=== PATIENT | female | born 1930 | race Caucasian/White ===

== ENCOUNTER 2017-10-26 10:36 | Emergency (ER) | payer MEDICARE ==
--- NOTE | 2017-10-26 11:30 | ULT ---
RIGHT LOWER EXTREMITY VENOUS DOPPLER: Date: 10/26/17 HISTORY: Lower extremity edema, pain. COMPARISON: None. TECHNIQUE: Real-time Mclaughlin scale and color Doppler with spectral analysis of the right lower extremity venous sy stem was performed. The common femoral and femoral veins were interrogated. The popliteal and electronic development technician ior tibial veins were unable to be visualized. FINDINGS: There is occlusive thrombus in the right greater saphenous and partially occlusive thrombus in the ri ght femoral vein. Popliteal and posterior tibial veins were unable to be visualized due to extensive swelling. IMPRESSION: Occlusive thrombus right greater saphenous vein and partially occlusive thrombus right common femoral vein. Alicia, in the ER, notified of findings at 1118 hours. CODE CR. POS: ALFREDO
[2017-10-26 11:54] LABS: #Basophils 0.1 thou/uL (0.0-0.2); #Eosinphils 0.2 thou/uL (0.0-0.7); #Lymphocytes 2.4 thou/uL (1.20-3.40); #Monocytes 0.8 thou/uL (0.11-0.59); #Neutrophils 5.7 thou/uL (1.40-6.50); %Basophils 0.8 % (0.0-1.0); %Eosinophils 2.5 % (0.0-10.0); %Lymphocytes 25.9 % (21.0-51.0); %Monocytes 8.5 % (0.0-10.0); %Neutrophils 62.3 % (42.0-75.0); Hemoglobin 12.4 g/dL (12.0-16.0); Mean Corpuscular HGB CONC 32.8 g/dL (32.0-36.0); Mean Corpuscular Hemoglobin 28.4 pg (27.0-31.0); Mean Corpuscular Volume 86.7 fL (78.0-98.0); Mean Platelet Volume 7.9 fL (7.4-10.4); Platelet Count 248 thou/uL (130-400); RBC Distribution Width 13.7 % (11.5-14.5); Red Blood Cell (RBC) Count 4.37 mill/uL (4.20-5.40); White Blood Cell (WBC) Count 9.2 thou/uL (4.8-10.8)
[2017-10-26 12:02] LABS: INR-International Normal Ratio 1.2; PTT 28.4 SEC (22.9-36.1)
[2017-10-26] MEDS ORDERED: Enoxaparin Sodium 100 MG/ML SYRINGE ONE (12:06)
[2017-10-26 12:17] LABS: ALT (SGPT) 10 U/L (8-55); AST (SGOT) 16 U/L (5-34); Albumin 3.6 g/dL (3.4-4.8); Alkaline Phosphatase 115 U/L (40-150); Anion Gap 12 mmol/L (10-20); BUN (Urea Nitrogen) 11 mg/dL (9.8-20.1); Bilirubin, Total 0.5 mg/dL (0.2-1.2); Calc. Creatinine Clearance 0 mL/min (70-130); Calcium 9.5 mg/dL (7.8-10.44); Carbon Dioxide 24 mmol/L (23-31); Chloride 107 mmol/L (98-107); Estimated GFR-MDRD 50; Globulin 3.8 g/dL (2.4-3.5); Glucose 252 mg/dL (83-110); Potassium 4.8 mmol/L (3.5-5.1); Protein, Total 7.4 g/dL (6.0-8.3); Sodium 138 mmol/L (136-145)
[2017-10-26 13:25] LABS: PTT 26.5 SEC (22.9-36.1)
[2017-10-26 13:27] LABS: INR-International Normal Ratio 1.1; Prothrombin Time 14.6 SEC (12.0-14.7)
--- NOTE | 2017-10-26 13:34 | CT ---
CT ANGIOGRAM OF THE CHEST: Date: 10/26/17 HISTORY: Right leg pain. Hip pain. Swelling, starting 4-5 days ago. Chest pain. COMPARISON: 03/27/09. TECHNIQUE: CT angiogram of the chest is performed in the axial plane. Three-dimensional reformatted images are s ubmitted for interpretation. FINDINGS: Enlarged right paratracheal lymph node measuring 1.6 x 1.9 cm. Enlarged subcarinal lymph node measuri ng 1.7 x 2.2 cm. Enlarged right hilar lymph node measuring 1.7 x 2.0 cm. Heart size is within normal limits. No significant pericardial fluid. There are coronary calcifications. Limited evaluation of t he aorta due to lack of contrast opacification. Reflux of contrast into the inferior vena cava due to right heart failure. There are no lytic or blastic lesions in the osseous structures. Patchy ground-glass opacities with additional linear opacities in the lung parenchyma. Correlate for atelectasis, scar, or edema. No consolidation with air bronchograms. No significant pleural fluid. No pneumothorax. Adequate contrast opacification of the pulmonary arterial system to the level of the segmental arteri es. No filling defect to imply thromboembolism. IMPRESSION: 1. No evidence of pulmonary arterial embolism to the level of the segmental arteries. 2. Mediastinal and hilar lymphadenopathy. Correlate for a primary metastatic malignant process. Reac tive lymphadenopathy is a consideration, though less favored. POS: ALFREDO
[2017-10-26 13:35] LABS: Factor VIII Test 438.7 % ACTIVE (56-157); Protein C Activity 114 % (78-152)
[2017-10-26 16:05] LABS: Lactic Acid 2.2 mmol/L (0.5-2.2)
[2017-10-27 12:41] LABS: HEX PHOS LA Tube 1 43.3 SEC; HEX PHOS LA Tube 2 40.5 SEC; Hexagonal Phospholipid Neut 2.7 SEC (0-8.0)
[2017-10-28 20:02] LABS: Cardiolipin IgA Ab 1.8 APL-U/mL (<14 Negative); Cardiolipin IgG Ab 2.5 GPL-U/mL (<10 Negative); Cardiolipin IgM Ab 4.2 MPL-U/mL (<10 Negative); EliA APS New Method **** NEW METHOD ****
== END 2017-10-26 16:17 | disposition home or self-care (01) ==
LOC: ERS 10:36
DX: I82.401 Acute embolism and thrombosis of unspecified deep veins of right lower extremity (principal); Z86.73 Personal history of transient ischemic attack (TIA), and cerebral infarction without residual deficits; I25.10 Atherosclerotic heart disease of native coronary artery without angina pectoris; E11.9 Type 2 diabetes mellitus without complications; E03.9 Hypothyroidism, unspecified; I25.2 Old myocardial infarction; E78.5 Hyperlipidemia, unspecified; Z79.899 Other long term (current) drug therapy
CPT/HCPCS: 36415; 71275; 80053; 81240; 81241; 83090; 83605; 85025; 85240; 85300; 85303; 85305; 85307; 85379; 85598; 85610; 85730; 86147; 86850; 86900; 86901; 96372; J1650

== ENCOUNTER 2018-08-04 20:03 | Inpatient (IN) | payer MEDICARE ==
[2018-08-04 20:45] LABS: Hemoglobin 13.6 g/dL (12.0-16.0); Mean Corpuscular HGB CONC 31.7 g/dL (32.0-36.0); Mean Corpuscular Hemoglobin 27.8 pg (27.0-31.0); Mean Corpuscular Volume 87.7 fL (78.0-98.0); Mean Platelet Volume 9.3 fL (7.4-10.4); Platelet Count 267 thou/uL (130-400); RBC Distribution Width 15.8 % (11.5-14.5); Red Blood Cell (RBC) Count 4.88 mill/uL (4.20-5.40); White Blood Cell (WBC) Count 16.1 thou/uL (4.8-10.8)
--- NOTE | 2018-08-04 20:50 | RAD ---
CHEST ONE VIEW: 08/04/18 INDICATION: Shortness of breath. COMPARISON: Prior dated 08/07/15. FINDINGS: Low lung volumes accentuate the cardiac silhouette with pulmonary vasculature. There is suspicion for subsegmental atelectasis involving both lower lobes. No definite confluent air space opacity or pleu ral effusion is evident. Chronic osseous changes are similar appearing. IMPRESSION: 1. Low lung volumes and suspected bibasilar atelectasis. 2. Other chronic findings as above. POS: BH
[2018-08-04] MEDS ORDERED: Diltiazem 125 MG/25 ML ONE (20:52)
[2018-08-04 21:00] LABS: Band 4 % (5-11); Lymphocytes 6 % (21-51); MDiff Complete? YES; Monocytes 3 % (0-10); Neutrophil 87 % (42-75)
[2018-08-04 21:07] LABS: ALT (SGPT) 12 U/L (8-55); AST (SGOT) 22 U/L (5-34); Albumin 3.2 g/dL (3.4-4.8); Alkaline Phosphatase 126 U/L (40-150); Anion Gap 17 mmol/L (10-20); BUN (Urea Nitrogen) 11 mg/dL (9.8-20.1); Calc. Creatinine Clearance 0 mL/min (70-130); Calcium 9.2 mg/dL (7.8-10.44); Carbon Dioxide 18 mmol/L (23-31); Chloride 103 mmol/L (98-107); Estimated GFR-MDRD 42; Globulin 4.2 g/dL (2.4-3.5); Glucose 289 mg/dL (83-110); Potassium 4.5 mmol/L (3.5-5.1); Protein, Total 7.4 g/dL (6.0-8.3); Sodium 133 mmol/L (136-145)
[2018-08-04 21:22] LABS: INR-International Normal Ratio 2.1; PTT 37.2 SEC (22.9-36.1); Prothrombin Time 23.2 SEC (12.0-14.7)
[2018-08-04 22:57] LABS: Bilirubin Negative (Negative); Blood, Urine Moderate (Negative); Clarity CLOUDY (Clear); Glucose, Urine (Dipstick) Negative (Negative); Leukocyte Large (Negative); Nitrite Positive (Negative); Protein, Urine (Dipstick) 100 mg/dL (Neg-Trace); Urobilinogen 0.2 mg/dL (0.2-1.0); pH, Urine 8.5 (5.0-9.0)
[2018-08-04 22:58] LABS: Bacteria/HPF 4+ HPF (None Seen); Pathc Cast-AUWi Flag 2.05 (0-2.49)
[2018-08-04 23:00] LABS: Hyaline Casts/LPF 0-3 HYALINE CAST LPF (0-3 Hyaline)
[2018-08-05] MEDS ORDERED: Ondansetron PF 4 MG/2 ML Vial IVP PRN (00:05)
[2018-08-05] MEDS ORDERED: Acetaminophen 325 MG TAB PO PRN (00:05)
[2018-08-05] MEDS ORDERED: Ondansetron ODT 4 MG TAB SL PRN (00:05)
[2018-08-05 00:10] LABS: Troponin I 0.024 ng/mL (< 0.028)
[2018-08-05 00:12] VITALS: BMI 36.7
[2018-08-05 01:04] LABS: Lactic Acid 2.6 mmol/L (0.5-2.2)
[2018-08-05] MEDS ORDERED: Dextrose 50% Abboject 50 ML SYRINGE SLOW IVP PRN (02:18)
[2018-08-05] MEDS ORDERED: Dextrose 5% in Water 1,000 ML IV PRN (02:18)
[2018-08-05] MEDS ORDERED: Sodium Chloride 0.9% 1,000 ML IV SCH (03:00)
[2018-08-05] MEDS: cefTRIAXone\\ROCEPHIN 1 GM in Sodium Chloride 0.9% 100 ML IVPB SCH (03:17)
[2018-08-05 03:23] LABS: #Basophils 0.1 thou/uL (0.0-0.2); #Monocytes 1.4 thou/uL (0.11-0.59); #Neutrophils 12.6 thou/uL (1.40-6.50); %Basophils 0.3 % (0.0-1.0); %Eosinophils 0.2 % (0.0-10.0); %Lymphocytes 12.6 % (21.0-51.0); %Monocytes 8.8 % (0.0-10.0); %Neutrophils 78.1 % (42.0-75.0); Hemoglobin 12.3 g/dL (12.0-16.0); Mean Corpuscular HGB CONC 31.7 g/dL (32.0-36.0); Mean Corpuscular Hemoglobin 27.6 pg (27.0-31.0); Mean Corpuscular Volume 87.1 fL (78.0-98.0); Mean Platelet Volume 9.1 fL (7.4-10.4); Platelet Count 241 thou/uL (130-400); RBC Distribution Width 15.8 % (11.5-14.5); Red Blood Cell (RBC) Count 4.47 mill/uL (4.20-5.40); White Blood Cell (WBC) Count 16.1 thou/uL (4.8-10.8)
[2018-08-05 03:42] LABS: Anion Gap 15 mmol/L (10-20); BUN (Urea Nitrogen) 12 mg/dL (9.8-20.1); Calc. Creatinine Clearance 61 mL/min (70-130); Calcium 8.8 mg/dL (7.8-10.44); Carbon Dioxide 16 mmol/L (23-31); Chloride 106 mmol/L (98-107); Estimated GFR-MDRD 51; Glucose 239 mg/dL (83-110); Potassium 4.1 mmol/L (3.5-5.1); Sodium 133 mmol/L (136-145)
[2018-08-05 03:48] LABS: Troponin I Less than 0.010 ng/mL (< 0.028)
--- NOTE | 2018-08-05 04:09 | HP ---
PRIMARY CARE PHYSICIAN: Dr. Calvin Etienne. CODE STATUS: Full code. TIME OF EVALUATION: 2:30 a.m. CHIEF COMPLAINT: Shortness of breath. HISTORY OF PRESENT ILLNESS: This is an 87-year-old female patient with past medical history of coronary artery disease, status post stent, CVA, CO in 2004, diabetes , hypothyroidism, hyperlipidemia, came to the hospital after having worsening shortness of breath that was present during the entire day with no clear triggers, no alleviating factors. The patient had no fever, no sputum production. She was found to be in atrial fibrillation with rapid ventricular response. The symptoms were reported as moderate. We have examined the patient. The patient has respiratory rhythm abnormalities, so we will rule out intracranial hypertension , it looks like a Jackson-Clancy rhythm. Other than that, the atrial fibrillation has been controlled now. Continue to monitor closely. REVIEW OF SYSTEMS: CONSTITUTIONAL: No fever, chills, or generalized weakness. RESPIRATORY: No cough, or sputum production. The patient does have increased shortness of breath. CARDIOVASCULAR: No chest pain, or palpitation. The patient has irregular heartbeat. GASTROINTESTINAL: No nausea, vomiting, diarrhea, or abdominal pain. CERTIFIED COMPOSITES TECHNICIAN: No dizziness, headache, or feeling lightheaded. GENITOURINARY: No burning on urination. EXTREMITIES: No leg swelling. All other systems were reviewed and negative except for the findings mentioned above. PAST MEDICAL HISTORY: Positive for the findings mentioned in the HPI. SURGICAL HISTORY: Angioplasty with stent placement x3, hysterectomy, cataract surgery. PSYCHIATRIC HISTORY: No previous psychiatric history. SOCIAL HISTORY: No alcohol. No drugs. No smoking history. Lives at home with family. FAMILY HISTORY: Includes coronary artery disease and diabetes in the mother. KNOWN ALLERGIES: 1. Codeine phosphate. 2. Morphine. REPORTED MEDICATIONS: 1. Levothyroxine. 2. Lisinopril. 3. Eliquis. 4. Glipizide. PHYSICAL EXAMINATION: VITAL SIGNS: On presentation, blood pressure 137/108, pulse 132, respiratory rate was 40, temperature 97.7, pain 0/10, oxygen saturation 99% on room air. GENERAL APPEARANCE: The patient is alert, oriented, not in acute distress, only when she is tachypneic, she seems to be in distress. HEENT: Eyes, normal conjunctivae. Moist oral mucosa. Anicteric. No JVD. RESPIRATORY: Bilateral air entry. The patient has Jackson-Clancy respiration, has a change in rhythm. No wheezing. Symmetric expansion. CARDIOVASCULAR: The patient has rate-controlled, irregular rhythm. No murmurs. No gallop. Bilateral leg edema. ABDOMEN: Soft, normal bowel sounds. MUSCULOSKELETAL: Baseline range of motion and strength. No tenderness. SKIN: Warm, intact. No pallor. No rash. No redness. Peripheral pulses are present. Capillary refill seems to be intact. NEURO: No evidence of any new focal weakness. Baseline speech. Cranial nerves seems to be intact. PSYCH: The patient is in good mood. No anxiety. DIAGNOSTIC STUDIES: EKG was reviewed. The patient has atrial fibrillation with rapid ventricular response with the left bundle branch block, ventricular rate 126, ND unable to measure due to atrial fibrillation, QRS 132, QT corrected 436. Chest x-ray was reviewed. The patient has lung volumes and suspecting bibasilar atelectasis. Other chronic findings as above. CT was reviewed by myself. Official report from Radiology is pending. No evidence of any acute finding; however, official report needs to be followed with Hematology. LABORATORY DATA: Labs were reviewed with Hematology. White count 16.1, hemoglobin 13.6, MCV 87.7, platelet count 267. Coagulation; PT 23.2, INR 2.1, PTT 37.2. Chemistry; sodium 133, potassium 4.5, chloride 103, carbon dioxide 18, anion gap 17, BUN 11, creatinine 1.21, GFR is 42, glucose 289, lactic acid 2.8, second one 2.6 , calcium 9.2, total bilirubin 1.0, AST 22, ALT 12, alkaline phosphatase 126. Troponin 0.024. Serum total protein 7.4, albumin 3.2, globulin 4.2, albumin globulin ratio 0.8. Procalcitonin 0.15. Urine was done and it showed white count of greater than 50, too numerous to count, red blood cells 11 to 20, large leukocyte esterase, nitrite-positive urine. ASSESSMENT AND PLAN: The patient will be placed in the hospital with following medical problems: 1. Atrial fibrillation with rapid ventricular response. The patient is on Cardizem drip, rate is controlled. We will continue to monitor in IMCU for now. Cardiology consult. 2. Leukocytosis, unclear etiology, could be from the urinary tract infection that is present. The patient has been started on antibiotics. The patient denies any fever. However, she has tachypnea. This criteria is qualifying for sepsis. We will follow blood cultures. We will give some fluids. We will adjust treatment depending on sensitivity. 3. 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 4. Mild lactic acidosis of unclear etiology, could be secondary to underlying sepsis. We will follow and treat accordingly. 5. Mildly elevated creatinine, does not qualify for acute kidney injury. We will hydrate and we will monitor and we will treat accordingly. 6. Urinary tract infection. Treatment as above. 7. Deep venous thrombosis prophylaxis. The patient is on chronic anticoagulation. Job ID: [id number] MTDD
--- NOTE | 2018-08-05 09:10 | CT ---
PRELIMINARY REPORT/[facility]/EMERGENCY AFTER HOURS PROCEDURE: EXAM: CT Head Without Contrast EXAM DATE/TIME: 08/05/2018 2:34 AM CLINICAL HISTORY: 87 years old, female; Condition or disease; Cerebrovascular disease; Patient HX: R/O intracranial HTN . Dyspnea has had high respiration rate, SOB. HX CVA and TIA. TECHNIQUE: Imaging protocol: Axial computed tomography images of the head/brain without contrast. COMPARISON: No relevant prior studies available. FINDINGS: Brain: Age appropriate atrophy and small vessel ischemic change. No mass effect, midline shift or ext ra axial fluid collections. Mclaughlin-white matter differentiation is normal. There are multiple small hyp odensities in the basal ganglia consistent with remote lacunar infarctions. Ventricles: Normal. No ventriculomegaly. Bones/joints: Unremarkable. No acute fracture. Sinuses: Visualized sinuses are unremarkable. No acute sinusitis. Mastoid air cells: Visualized mastoid air cells are unremarkable. No mastoid effusion. Orbits: The patient has had bilateral lens replacement surgery. Soft tissues: Unremarkable. Vasculature: Carotid and vertebral artery atherosclerotic calcification. IMPRESSION: No acute intracranial abnormality. Thank you for allowing us to participate in the care of your patient. Dictated and Authenticated by: Malik Burgess MD 08/05/2018 4:02 AM Central Time ([place] & [place]) FINAL REPORT EMERGENCY AFTER HOURS CT BRAIN: Date: 08/05/18 FINDINGS/IMPRESSION: I agree with the preliminary report provided by Bee. There is stable chronic small vessel white matter ischemic change. 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 No definite acute infarct, hemorrhage, or hydrocephalus is present. POS: VERONICA
[2018-08-05] MEDS ORDERED: ALIROCUMAB 75 MG SQ SCH (10:00)
[2018-08-05] MEDS ORDERED: Apixaban 5 MG TAB PO SCH ×2 (10:30→21:00)
[2018-08-05] MEDS: Diltiazem HCl 125 MG, Admixture Fee 1 EACH in Sodium Chloride 0.9% 100 ML IVPB SCH (13:56)
--- NOTE | 2018-08-05 14:43 | PDOC.EVN ---
Event Note - Event Note Event Note: Pt seen and examined. care discussed w family at bedside. Pt feels a little better and family feel that her breathing has improved chart reviewed still breathes through her mouth and breathes fast and then normalizes . NAD AAOX3. RRR though difficult to auscultate reduced breath sounds at bases david check BNP a shigh chance of flash pulm edema form a-fib. may need diuresis. cont ABx for UTI. check Blood Cx as LA also high. Check ECHO> last was in 2015 showing diastolic dysfunction home meds reviewed.restart Eliquis given new a-fib which the pt was on for H/O DVT. Rate controlled on CCB. cardiology and PCCM consulted. am labs add flonase Stop IVF. restart Lisinopril,glucotrol
[2018-08-05] MEDS ORDERED: Fluticasone Propionate Nasal Spray 16 gm Bottle NASAL SCH (15:00)
[2018-08-05] MEDS ORDERED: Furosemide 20 MG/2 ML VIAL SLOW IVP SCH (19:30)
[2018-08-05] MEDS: Apixaban 5 MG TAB PO SCH (21:13)
[2018-08-05] MEDS: Amiodarone 450 MG in Dextrose 5% in Water 250 ML IVPB SCH (21:14)
--- NOTE | 2018-08-06 00:40 | CON ---
DATE OF CONSULTATION: 08/05/2018 HISTORY OF PRESENT ILLNESS: Evelyn is an 87-year-old female. She is admitted with rapid atrial fibrillation. We were consulted because of her presence in the Intermediate Care Unit. She says she is feeling better than when she came in. Her daughter was asleep the whole time while I was in the room evaluating her. PAST MEDICAL HISTORY: Remarkable for, 1. Coronary stenting. 2. History of cerebrovascular accident. 3. History of myocardial infarction. 4. Diabetes. 5. Hypothyroidism. 6. Lipid disorder. FAMILY HISTORY: Negative for lung disease in early age. SOCIAL HISTORY: She is a nonsmoker, nondrinker. Reports intolerance to codeine , morphine, and statins. REVIEW OF SYSTEMS: A 10-point review of systems completed, otherwise negative. PHYSICAL EXAMINATION: GENERAL: Evelyn is an 87-year-old female. VITAL SIGNS: She is afebrile. Heart rates in the 80s, blood pressure 119/71, and respiratory rate of 20s. She intermittently gets tachypneic, but denies being short of breath. HEENT: Pupils are equal. Sclerae are anicteric. NECK: Supple. LUNGS: Clear. HEART: Regular rhythm. S1, S2 normal. ABDOMEN: Soft and nontender. EXTREMITIES: Without clubbing, cyanosis, or edema. LABORATORY DATA: White count 16.1, hemoglobin 12.3, and platelets 241. INR is 2.1. Sodium 133, potassium 4.1, chloride 106, bicarb 16, BUN 12, creatinine 1.03. 11 to 20 red cells, bpg-trwioaxv-ak-count white cells in her urine. She has Proteus growing from her urine. IMPRESSION: 1. Rapid atrial fibrillation, now with controlled ventricular response. 2. Urinary tract infection with Proteus isolated on urine culture. 3. Chronic anticoagulation. 4. Probable intravascular volume depletion on presentation with an improved creatinine. PLAN: Continue antimicrobial therapy and rate control. This is a 50 minute consult, with greater than 50% of time spent on unit coordinating care. Job ID: [id number] MTDD
--- NOTE | 2018-08-06 01:50 | CON ---
DATE OF CONSULTATION: HISTORY: Natalia Rivas is an 87-year-old white female, who has followed with Dr. Hunt for many years. In 2003, she had myocardial infarction followed by stent placement in the proximal LAD by Dr. Blackwell. She also has had history of cerebrovascular accident. In October 2017, she was found to have a right greater saphenous vein and common femoral vein deep venous thrombosis. Apparently, she did not tolerate Xarelto, but currently is on Eliquis. She now is admitted with increased shortness of breath. She does state she has had one or two coughs with brown sputum production. She denied any fever. She was found to be in atrial fibrillation with fast ventricular response. She denies any chest discomfort. She had a CT angiogram performed in the emergency room, which revealed no evidence of pulmonary embolism. She was found to have mediastinal and hilar lymphadenopathy worrisome for a possible malignant process. Chest x-ray revealed basilar atelectasis. PAST MEDICAL HISTORY: Coronary artery disease, history of CVA, history of right leg DVT, hypothyroidism, hyperlipidemia, diabetes, hypertension. PAST SURGICAL HISTORY: Hysterectomy, cataract surgery, and stent placement in the proximal LAD. MEDICATIONS: 1. Pregabalin 75 mg q.2 weeks. 2. Eliquis 5 mg b.i.d. 3. Fluconazole 100 mg daily. 4. Glucotrol 5 mg daily. 5. Synthroid 125 mcg daily. 6. Lisinopril 10 daily. ALLERGIES: CODEINE, MORPHINE. STATINS CAUSE MUSCLE PAIN. SOCIAL HISTORY: She does not smoke or drink. FAMILY HISTORY: Positive for coronary artery disease. REVIEW OF SYSTEMS: A 10-point review of systems is otherwise unremarkable. PHYSICAL EXAMINATION: VITAL SIGNS: Blood pressure 127/76, pulse of 87, on Cardizem drip at 7.5 mg/ hour. HEENT: PERRL. NECK: Supple. CHEST: Reveals occasional crackles. She does have Jackson-Clancy respiration. CARDIOVASCULAR: S1 and S2 normal without any S3, S4, or murmurs. ABDOMEN: Normal bowel sounds without tenderness. The abdomen is obese. EXTREMITIES: Revealed 2+ peripheral edema. NEUROLOGIC: Grossly intact. LABORATORY DATA: EKG revealed atrial fibrillation with rate of 126 per minute and left bundle-branch block (in looking back on her last EKG here at [facility] in 2015, she did not have left bundle-branch block and now that her rate is slowed , she also does not have left bundle-branch block). Cardiac enzymes are unremarkable. White count 16,100, hemoglobin 12.3, hematocrit 38.9, platelets 241,000. INR 2.1. Sodium 133, potassium 4.1, chloride 106, carbon dioxide 16, BUN 12, creatinine 1.03. BNP 375.3. There is no recent TSH. On June 29, 2018, cholesterol was 95, triglycerides 117, HDL 42, LDL 30. The echocardiogram was very technically difficult with ejection fraction of approximately 35% to 40%, mild left atrial enlargement, moderate mitral regurgitation, aortic valvular sclerosis without significant gradient being measured, and mild tricuspid regurgitation. IMPRESSION: 1. New onset atrial fibrillation with rapid ventricular response. She has been slowed with Cardizem. 2. Left bundle-branch block, which on the monitor appears to have resolved, maybe a rate-dependent left bundle-branch block. 3. Leukocytosis. Patient started on Rocephin. 4. History of right leg deep venous thrombosis, on chronic anticoagulation. 5. Worsening left ventricular function with ejection fraction falling to 35% to 40%. 6. Questionable aortic stenosis-she had a gradient on the echo in the office, however, one was not measured here. 7. Hypertension. 8. Diabetes. 9. Hypercholesterolemia under good control. 10. Hypothyroidism. PLAN: TSH will be obtained. She will be given low-dose Lasix with her worsening left ventricular function and significant peripheral edema. I will start her on IV amiodarone with her left ventricular dysfunction. We will continue to follow the patient with you. Job ID: [id number] MTDD
[2018-08-06] MEDS: cefTRIAXone\\ROCEPHIN 1 GM in Sodium Chloride 0.9% 100 ML IVPB SCH (03:20)
[2018-08-06] MEDS: Diltiazem HCl 125 MG, Admixture Fee 1 EACH in Sodium Chloride 0.9% 100 ML IVPB SCH (05:30)
[2018-08-06] MEDS: Amiodarone 450 MG in Dextrose 5% in Water 250 ML IVPB SCH ×2 (06:13→23:21)
[2018-08-06] MEDS: Levothyroxine Sodium 125 MCG TAB PO SCH (06:14)
[2018-08-06 06:21] LABS: #Basophils 0.1 thou/uL (0.0-0.2); #Eosinphils 0.1 thou/uL (0.0-0.7); #Lymphocytes 2.4 thou/uL (1.20-3.40); #Monocytes 1.3 thou/uL (0.11-0.59); #Neutrophils 7.4 thou/uL (1.40-6.50); %Basophils 0.5 % (0.0-1.0); %Eosinophils 0.8 % (0.0-10.0); %Lymphocytes 21.6 % (21.0-51.0); %Monocytes 11.2 % (0.0-10.0); %Neutrophils 65.9 % (42.0-75.0); Hemoglobin 12.3 g/dL (12.0-16.0); Mean Corpuscular HGB CONC 32.1 g/dL (32.0-36.0); Mean Corpuscular Volume 87.4 fL (78.0-98.0); Mean Platelet Volume 10.5 fL (7.4-10.4); Platelet Count 198 thou/uL (130-400); RBC Distribution Width 15.8 % (11.5-14.5); Red Blood Cell (RBC) Count 4.41 mill/uL (4.20-5.40); White Blood Cell (WBC) Count 11.2 thou/uL (4.8-10.8)
[2018-08-06 06:38] LABS: Anion Gap 14 mmol/L (10-20); BUN (Urea Nitrogen) 18 mg/dL (9.8-20.1); Calc. Creatinine Clearance 48 mL/min (70-130); Calcium 8.5 mg/dL (7.8-10.44); Carbon Dioxide 14 mmol/L (23-31); Chloride 108 mmol/L (98-107); Estimated GFR-MDRD 39; Glucose 212 mg/dL (83-110); Potassium 4.4 mmol/L (3.5-5.1); Sodium 132 mmol/L (136-145)
--- NOTE | 2018-08-06 07:27 | RAD ---
CHEST 1 VIEW: Date: 08/06/18 INDICATION: CHF. COMPARISON: Prior exam dated 08/04/18. FINDINGS: Cardiomegaly, pulmonary vascular congestion, and central edema pattern persist. Small bilateral pleur al effusions persist. No pneumothorax is evident. IMPRESSION: Stable exam. POS: BH
[2018-08-06] MEDS: Lisinopril 10 MG TAB PO SCH (09:17)
[2018-08-06] MEDS: Apixaban 5 MG TAB PO SCH ×2 (09:17→20:48)
[2018-08-06] MEDS: glipiZIDE 5 MG TAB PO SCH (09:17)
[2018-08-06] MEDS ORDERED: Dextrose 50% Abboject 50 ML SYRINGE SLOW IVP PRN (09:18)
[2018-08-06] MEDS ORDERED: HumaLOG 300 UNITS/3 ML VIAL SC PRN (09:18)
[2018-08-06] MEDS ORDERED: Dextrose 5% in Water 1,000 ML IV PRN (09:18)
[2018-08-06] MEDS: Fluticasone Propionate Nasal Spray 16 gm Bottle NASAL SCH (09:24)
[2018-08-06] MEDS ORDERED: Furosemide 40 MG/4 ML VIAL SLOW IVP SCH (13:30)
--- NOTE | 2018-08-06 14:38 | PDOC.PN ---
- Subjective Encounter Start Date: 08/06/18 Encounter Start Time: 14:35 Subjective: feels better but RN reports periodic Hyperventilation -: no chest pain or palpitations - Objective Resuscitation Status - Order Detail: 08/05/18 02:18 Resuscitation Status Routine Resuscitation Status: FULL: Full Resuscitation MAR Reviewed: Yes Vital Signs & Weight: Vital Signs (12 hours) Temp BP Pulse Ox 08/06/18 11:40 97.3 F L 08/06/18 09:17 155/95 H 08/06/18 08:00 98 08/06/18 07:17 96.5 F L 98 08/06/18 04:00 97.8 F Weight Admit Weight 213 lb 14.4 oz Weight 213 lb 14.4 oz Most Recent Monitor Data Heart Rate from ECG 75 NIBP 136/78 NIBP BP-Mean 97 Respiration from ECG 24 I&O: 08/05/18 08/06/18 08/07/18 06:59 06:59 06:59 Intake Total 550 610 Output Total 120 300 Balance 430 310 Result Diagrams: 08/06/18 05:34 08/06/18 05:34 Additional Labs: Accuchecks 08/06/18 08/05/18 08/05/18 06:25 20:11 15:22 POC Glucose 213 H 215 H 213 H Microbiology 08/05/18 10:28 Venous blood - Left Hand Blood Culture - Preliminary Specimen has been received and culture in progress. No Growth to date. 08/05/18 10:28 Venous blood - Left Arm Blood Culture - Preliminary Specimen has been received and culture in progress. No Growth to date. 08/04/18 22:46 Urine voided Urine Culture - Preliminary Providencia rettgeri Laboratory Tests 08/04/18 08/04/18 08/04/18 20:34 20:34 20:34 WBC 16.1 H Creatinine 1.21 H Lactic Acid Troponin I 0.011 08/04/18 08/04/18 08/05/18 21:01 23:39 00:39 WBC Creatinine Lactic Acid 2.8 H 2.6 H Troponin I 0.024 08/05/18 08/05/18 08/05/18 03:10 03:10 03:10 WBC 16.1 H Creatinine 1.03 Lactic Acid Troponin I Less than 0.010 08/06/18 08/06/18 05:34 05:34 WBC 11.2 H Creatinine 1.31 H Lactic Acid Troponin I Phys Exam - Physical Examination Constitutional: NAD HEENT: PERRLA, moist MMs, sclera anicteric, oral pharynx no lesions Neck: no nodes, no JVD, supple, full ROM Respiratory: no wheezing, no rhonchi, clear to auscultation bilateral few bibasilar crackles Cardiovascular: RRR, no significant murmur Gastrointestinal: soft, non-tender, no distention, positive bowel sounds Musculoskeletal: no edema, pulses present Neurological: non-focal, normal sensation, moves all 4 limbs Dx/Plan (1) Acute respiratory failure with hypoxia Code(s): J96.01 - ACUTE RESPIRATORY FAILURE WITH HYPOXIA Status: Acute Comment: improving. Multifactorial. (2) Atrial fibrillation with RVR Code(s): I48.91 - UNSPECIFIED ATRIAL FIBRILLATION Status: Acute Comment: on amiodarone drip. Cont Eliquis. ECHO shows poor EF in comaprison to previous ECHO (3) UTI (urinary tract infection) Status: Acute Comment: cont Rocephin for Providencia based on sensitivities (4) Pulmonary edema Code(s): J81.1 - CHRONIC PULMONARY EDEMA Status: Acute Qualifiers: Chronicity: acute Qualified Code(s): J81.0 - Acute pulmonary edema Comment: lasix prn. due to a-fib w RVR (5) Chronic anticoagulation Code(s): Z79.01 - POMOLOGIST (CURRENT) USE OF ANTICOAGULANTS Status: Chronic Comment: for H/O DVT. continue given new A-fib (6) H/O deep venous thrombosis Code(s): Z86.718 - PERSONAL HISTORY OF OTHER VENOUS THROMBOSIS AND EMBOLISM Status: Chronic (7) Obesity (BMI 30-39.9) Code(s): E66.9 - OBESITY, UNSPECIFIED Status: Chronic (8) CAD (coronary artery disease) Code(s): I25.10 - ATHSCL HEART DISEASE OF [place] CORONARY ARTERY W/O ANG PCTRS Status: Chronic (9) Dyslipidemia Code(s): E78.5 - HYPERLIPIDEMIA, UNSPECIFIED Status: Chronic (10) H/O: CVA (cerebrovascular accident) Code(s): Z86.73 - PRSNL HX OF TIA (TIA), AND CEREB INFRC W/O RESID DEFICITS Status: Chronic (11) Hypertension Code(s): I10 - ESSENTIAL (PRIMARY) HYPERTENSION Status: Chronic (12) Hypothyroid Code(s): E03.9 - HYPOTHYROIDISM, UNSPECIFIED Status: Chronic Comment: cont levothyroxine. TSH slightly high but needs to checked again when acute illness is Over (13) DM2 (diabetes mellitus, type 2) Status: Chronic Comment: add ISS w accuchecks. Cont PO meds glipizide - Plan continue antibiotics, PT/OT, respiratory therapy, DVT proph w/lovenox, DVT proph w/SCDs cont care as above -: follow Cardiology recs regarding worsening EF and A-fib -: HD stable -: am labs * . Review of Systems - Review of Systems Constitutional: weakness, malaise. negative: fever, chills, sweats, other Respiratory: Cough, Shortness of Breath, SOB with Excertion, Sputum, Wheezing. negative: Dry, Hemoptysis, Pleuritic Pain Cardiovascular: orthopnea. negative: chest pain, palpitations, paroxysmal nocturnal dyspnea, edema, light headedness, other Gastrointestinal: negative: Nausea, Vomiting, Abdominal Pain, Diarrhea, Constipation, Melena, Hematochezia, Other Genitourinary: negative: Dysuria, Frequency, Incontinence, Hematuria, Retention , Other Musculoskeletal: negative: Neck Pain, Shoulder Pain, Arm Pain, Back Pain, Hand Pain, Leg Pain, Foot Pain, Other Skin: negative: Rash, Lesions, Flynn, Bruising, Other Neurological: negative: Weakness, Numbness, Incoordination, Change in Speech, Confusion, Seizures, Other - Medications/Allergies Allergies/Adverse Reactions: Allergies Allergy/AdvReac Type Severity Reaction Status Date / Time codeine Allergy Verified 09/29/13 22:39 morphine Allergy Verified 09/29/13 22:39 Dbtwhwn-Pri-Obm Reductase Allergy Verified 08/08/15 08:22 Inhibitor Medications: Current Medications Apixaban (Eliquis) 5 mg PO BID [facility] Last Admin: 08/06/18 09:17 Dose: 5 mg Dextrose/Water (Dextrose 50%) 25 gm SLOW IVP PRN PRN PRN Reason: Hypoglycemia Fluticasone Propionate (Flonase Nasal [place]) 0 gm NASAL DAILY [facility] Last Admin: 08/06/18 09:24 Dose: 1 spr Furosemide (Lasix) 40 mg SLOW IVP NOW DEVAN Stop: 08/06/18 15:30 Glipizide (Glucotrol) 5 mg PO DAILY-[facility] Last Admin: 08/06/18 09:17 Dose: 5 mg Glucagon (Glucagon) 1 mg IM PRN PRN PRN Reason: Hypoglycemia Ceftriaxone Sodium 1 gm/ (Sodium Chloride) 100 mls @ 200 mls/hr IVPB Q24HR [facility] Last Admin: 08/06/18 03:20 Dose: 100 mls Amiodarone HCl 450 mg/ (Dextrose/Water) 259 mls @ 0 mls/hr IVPB INF [facility]; Protocol Last Admin: 08/06/18 06:13 Dose: 259 mls Dextrose/Water (D5w) 1,000 mls @ 0 mls/hr IV .Q0M PRN PRN Reason: Hypoglycemia Diltiazem HCl 125 mg/Miscellaneous Medication 1 each/ Sodium Chloride 125 mls @ 5 mls/hr IVPB INF [facility]; Protocol Insulin Human Lispro (Humalog) 0 units SC .MODERATE SLIDING SC PRN PRN Reason: Moderate Correctional Scale Insulin Human Lispro (Humalog) 0 units SC .BEDTIME SLIDING SC PRN PRN Reason: Bedtime Correctional Scale Levothyroxine Sodium (Synthroid) 125 mcg PO 0600 [facility] Last Admin: 08/06/18 06:14 Dose: 125 mcg Lisinopril (Zestril) 10 mg PO DAILY [facility] Last Admin: 08/06/18 09:17 Dose: 10 mg Non-Formulary Medication (Alirocumab [Praluent Pen]) [facility]
--- NOTE | 2018-08-06 16:29 | PRG ---
DATE OF SERVICE: 08/06/2018 SUBJECTIVE: Natalia Rivas has no complaints. She wants to go home. OBJECTIVE: VITAL SIGNS: She is afebrile. Heart rate 75, blood pressure 136/78, and respiratory rates in the 20s. GENERAL: She is still in atrial fibrillation. LUNGS: Clear. HEART: Irregular. ABDOMEN: Soft and nontender. EXTREMITIES: Without edema. LABORATORY DATA: White count 11.2, hemoglobin 12.3, and platelets 198. Sodium 132, potassium 4.4, chloride 108, bicarb 14, BUN 18, creatinine 1.31, and glucose 212. IMPRESSION: 1. Congestive heart failure associated with atrial fibrillation. 2. 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 3. History of coronary stenting. 4. History of cerebrovascular accident. 5. History of myocardial infarction. 6. Diabetes. 7. Lipid disorder. 8. Proteus isolated from her urine. 9. Probable intravascular volume depletion on presentation. It was probably rapid atrial fibrillation that led to the pulmonary edema, not absolute volume overload. 10. We will continue with Cardiology's recommendations. 11. Proteus is sensitive to Cipro. She could be treated with p.o. antimicrobial therapy in my opinion. 12. Decisions about EP evaluation or cardioversion will be made by Cardiology. Chest radiograph still shows pulmonary edema and small effusions. Job ID: [id number]
[2018-08-06] MEDS: HumaLOG 300 UNITS/3 ML VIAL SC PRN (17:48)
[2018-08-07] MEDS: cefTRIAXone\\ROCEPHIN 1 GM in Sodium Chloride 0.9% 100 ML IVPB SCH (03:04)
[2018-08-07] MEDS: Diltiazem HCl 125 MG, Admixture Fee 1 EACH in Sodium Chloride 0.9% 100 ML IVPB SCH (03:05)
[2018-08-07] MEDS: HumaLOG 300 UNITS/3 ML VIAL SC PRN ×3 (05:49→18:35)
[2018-08-07] MEDS: Levothyroxine Sodium 125 MCG TAB PO SCH (05:49)
[2018-08-07] MEDS: Lisinopril 10 MG TAB PO SCH (09:59)
[2018-08-07] MEDS: Fluticasone Propionate Nasal Spray 16 gm Bottle NASAL SCH (10:02)
[2018-08-07] MEDS: glipiZIDE 5 MG TAB PO SCH (10:02)
[2018-08-07] MEDS: Apixaban 5 MG TAB PO SCH ×2 (10:02→20:02)
--- NOTE | 2018-08-07 11:11 | PQF ---
NABILA FERNANDEZ RICHA MD [id number] CLINICAL DOCUMENTATION IMPROVEMENT CLARIFICATION FORM: ICD-10 Updated PLEASE DO AN ADDENDUM TO THE PROGRESS NOTE WITH ANY DOCUMENTATION UPDATES OR ADDITIONS AND CARRY THROUGH TO DC SUMMARY. THANK YOU. DATE: 08/07 ATTN: DR. NAHUM KITCHEN Please exercise your independent, professional judgment in responding to the clarification form. Clinical indicators are provided on the bottom of this form for your review. Please check appropriate box(es): [ ] Sepsis due to: (Pna, UTI, gangrenous gall bladder, etc.) [ ] Severe sepsis with acute organ dysfunction of Acute Respiratory Failure w/ hypoxia [ ] Localized infection without sepsis [X ] Other diagnosis Sepsis ruled out [ ] Unable to determine In addition, please specify: Present on Admission (POA): [ ] Yes [ X ] No [ ] Unable to determine For continuity of documentation, please document condition throughout progress notes and discharge summary. Thank You. CLINICAL INDICATORS - SIGNS / SYMPTOMS / LABS H&P 08/04 (STEPHANIA): ASSESSMENT & PLAN: 2) LEUKOCYTOSIS, UNCLEAR ETIOLOGY, COULD BE FROM THE UTI THAT IS PRESENT. ...THE PATIENT DENIES ANY FEVER, HOWEVER , SHE HAS TACHYPNEA. THIS CRITERIA IS QUALIFYING FOR SEPSIS. 4) MILD LACTIC ACIDOSIS OF UNCLEAR ETIOLOGY, COULD BE 2/2 UNDERLYING SEPSIS; 6) UTI WBC: 16.1 LACTIC ACIDOSIS: 2.8 RR: 26-40 URINE: POS NITRITE, LARGE LEUKOCYTE ESTERASE, WBC TNTC, 4+ BACTERIA URINE CX: PROVIDENCIA RETTGERI NO FURTHER MENTION OF SEPSIS TO DATE RISKS: UTI (H&P) LACTIC ACIDOSIS (H&P) ACUTE RESPIRATORY FAILURE (PN 08/06) LEUKOCYTOSIS (H&P) TREATMENT: IMCU MONITORING (08/04 - PRESENT) IV ANTIBIOTIC (ROCEPHIN 08/04 TO PRESENT) SUPPLEMENTAL OXYGEN (2L NC 08/05 - PRESENT) THANK YOU! Jennifer (This form is maintained as a part of the permanent medical record) 2014 [employer]. All Rights Reserved Jennifer Biggs RN, BSN [email or web address] Office: [phone] [facility]
--- NOTE | 2018-08-07 14:17 | PDOC.PN ---
- Subjective Encounter Start Date: 08/07/18 Encounter Start Time: 14:16 Subjective: feels better today. no new complaints .no Overnight events - Objective Resuscitation Status - Order Detail: 08/05/18 02:18 Resuscitation Status Routine Resuscitation Status: FULL: Full Resuscitation MAR Reviewed: Yes Vital Signs & Weight: Vital Signs (12 hours) Temp Pulse BP BP Pulse Ox Pulse Ox 08/07/18 11:42 97.1 F L 08/07/18 09:59 142/92 H 08/07/18 08:47 75 141/74 H 98 08/07/18 08:00 99 08/07/18 07:15 98.2 F 08/07/18 03:45 98.6 F Weight Admit Weight 213 lb 14.4 oz Weight 213 lb 14.4 oz Most Recent Monitor Data Heart Rate from ECG 75 NIBP 149/92 NIBP BP-Mean 111 Respiration from ECG 45 SpO2 100 I&O: 08/06/18 08/07/18 08/08/18 06:59 06:59 06:59 Intake Total 610 1335 Output Total 300 1000 Balance 310 335 Result Diagrams: 08/06/18 05:34 08/06/18 05:34 Additional Labs: Accuchecks 08/07/18 08/07/18 08/06/18 10:37 05:48 20:22 POC Glucose 227 H 160 H 174 H 08/06/18 17:19 POC Glucose 241 H Microbiology 08/04/18 22:46 Urine voided Urine Culture - Final Providencia rettgeri 08/05/18 10:28 Venous blood - Left Hand Blood Culture - Preliminary Specimen has been received and culture in progress. No Growth to date. 08/05/18 10:28 Venous blood - Left Arm Blood Culture - Preliminary Specimen has been received and culture in progress. No Growth to date. Phys Exam - Physical Examination Constitutional: NAD HEENT: PERRLA, moist MMs, sclera anicteric, oral pharynx no lesions Neck: no nodes, no JVD, supple, full ROM Respiratory: no wheezing, no rales, no rhonchi, clear to auscultation bilateral reduced at bases Cardiovascular: RRR, no significant murmur Gastrointestinal: soft, non-tender, no distention, positive bowel sounds Musculoskeletal: no edema, pulses present Neurological: non-focal, normal sensation, moves all 4 limbs Psychiatric: normal affect, A&O x 3 Skin: no rash, normal turgor, cap refill <2 seconds Dx/Plan (1) Acute respiratory failure with hypoxia Code(s): J96.01 - ACUTE RESPIRATORY FAILURE WITH HYPOXIA Status: Acute Comment: improving. Multifactorial. (2) Atrial fibrillation with RVR Code(s): I48.91 - UNSPECIFIED ATRIAL FIBRILLATION Status: Acute Comment: on amiodarone and cardiazem drip. Cont Eliquis. ECHO shows poor EF in comaprison to previous ECHO awaiting final cardiology recs. May need Cath (3) UTI (urinary tract infection) Status: Acute Comment: cont Rocephin for Providencia based on sensitivities (4) Pulmonary edema Code(s): J81.1 - CHRONIC PULMONARY EDEMA Status: Acute Qualifiers: Chronicity: acute Qualified Code(s): J81.0 - Acute pulmonary edema Comment: lasix prn. due to a-fib w RVR (5) Chronic anticoagulation Code(s): Z79.01 - [facility] (CURRENT) USE OF ANTICOAGULANTS Status: Chronic Comment: for H/O DVT. continue given new A-fib (6) H/O deep venous thrombosis Code(s): Z86.718 - PERSONAL HISTORY OF OTHER VENOUS THROMBOSIS AND EMBOLISM Status: Chronic (7) Obesity (BMI 30-39.9) Code(s): E66.9 - OBESITY, UNSPECIFIED Status: Chronic (8) CAD (coronary artery disease) Code(s): I25.10 - ATHSCL HEART DISEASE OF [place] CORONARY ARTERY W/O ANG PCTRS Status: Chronic (9) Dyslipidemia Code(s): E78.5 - HYPERLIPIDEMIA, UNSPECIFIED Status: Chronic (10) H/O: CVA (cerebrovascular accident) Code(s): Z86.73 - PRSNL HX OF TIA (TIA), AND CEREB INFRC W/O RESID DEFICITS Status: Chronic (11) Hypertension Code(s): I10 - ESSENTIAL (PRIMARY) HYPERTENSION Status: Chronic (12) Hypothyroid Code(s): E03.9 - HYPOTHYROIDISM, UNSPECIFIED Status: Chronic Comment: cont levothyroxine. TSH slightly high but needs to checked again when acute illness is Over (13) DM2 (diabetes mellitus, type 2) Status: Chronic Comment: add ISS w accuchecks. Cont PO meds glipizide - Plan continue antibiotics, PT/OT, respiratory therapy, incentive spirometry, out of bed/ambulate, DVT proph w/SCDs Cont care as outlined above.Clinically better -: Discussed DC plan. Pt non ambulatory and refuses HH. -: AM labs -: strict I/Os. -: HD stable * . Review of Systems - Review of Systems Constitutional: weakness, malaise. negative: fever, chills, sweats, other Respiratory: SOB with Excertion. negative: Cough, Dry, Shortness of Breath, Hemoptysis, Pleuritic Pain, Sputum, Wheezing Cardiovascular: negative: chest pain, palpitations, orthopnea, paroxysmal nocturnal dyspnea, edema, light headedness, other Gastrointestinal: negative: Nausea, Vomiting, Abdominal Pain, Diarrhea, Constipation, Melena, Hematochezia, Other Genitourinary: negative: Dysuria, Frequency, Incontinence, Hematuria, Retention , Other Musculoskeletal: negative: Neck Pain, Shoulder Pain, Arm Pain, Back Pain, Hand Pain, Leg Pain, Foot Pain, Other Neurological: negative: Weakness, Numbness, Incoordination, Change in Speech, Confusion, Seizures, Other - Medications/Allergies Allergies/Adverse Reactions: Allergies Allergy/AdvReac Type Severity Reaction Status Date / Time codeine Allergy Verified 09/29/13 22:39 morphine Allergy Verified 09/29/13 22:39 Lonfwnj-Ufs-Nlp Reductase Allergy Verified 08/08/15 08:22 Inhibitor Medications: Current Medications Apixaban (Eliquis) 5 mg PO BID [facility] Last Admin: 08/07/18 10:02 Dose: 5 mg Dextrose/Water (Dextrose 50%) 25 gm SLOW IVP PRN PRN PRN Reason: Hypoglycemia Fluticasone Propionate (Flonase Nasal [place]) 0 gm NASAL DAILY [facility] Last Admin: 08/07/18 10:02 Dose: 1 spr Glipizide (Glucotrol) 5 mg PO DAILY-AC [facility] Last Admin: 08/07/18 10:02 Dose: 5 mg Glucagon (Glucagon) 1 mg IM PRN PRN PRN Reason: Hypoglycemia Ceftriaxone Sodium 1 gm/ (Sodium Chloride) 100 mls @ 200 mls/hr IVPB Q24HR [facility] Last Admin: 08/07/18 03:04 Dose: 100 mls Amiodarone HCl 450 mg/ (Dextrose/Water) 259 mls @ 0 mls/hr IVPB INF [facility]; Protocol Last Admin: 08/06/18 23:21 Dose: 259 mls Dextrose/Water (D5w) 1,000 mls @ 0 mls/hr IV .Q0M PRN PRN Reason: Hypoglycemia Diltiazem HCl 125 mg/Miscellaneous Medication 1 each/ Sodium Chloride 125 mls @ 5 mls/hr IVPB INF [facility]; Protocol Insulin Human Lispro (Humalog) 0 units SC .MODERATE SLIDING SC PRN PRN Reason: Moderate Correctional Scale Last Admin: 08/07/18 12:29 Dose: 4 unit Insulin Human Lispro (Humalog) 0 units SC .BEDTIME SLIDING SC PRN PRN Reason: Bedtime Correctional Scale Levothyroxine Sodium (Synthroid) 125 mcg PO 0600 [facility] Last Admin: 08/07/18 05:49 Dose: 125 mcg Lisinopril (Zestril) 10 mg PO DAILY [facility] Last Admin: 08/07/18 09:59 Dose: 10 mg Non-Formulary Medication (Alirocumab [Praluent Pen]) 75 mg SQ [facility]
[2018-08-08] MEDS: Amiodarone 450 MG in Dextrose 5% in Water 250 ML IVPB SCH (04:09)
[2018-08-08] MEDS: cefTRIAXone\\ROCEPHIN 1 GM in Sodium Chloride 0.9% 100 ML IVPB SCH (04:12)
[2018-08-08 05:40] LABS: Anion Gap 13 mmol/L (10-20); BUN (Urea Nitrogen) 16 mg/dL (9.8-20.1); Calc. Creatinine Clearance 65 mL/min (70-130); Calcium 8.5 mg/dL (7.8-10.44); Carbon Dioxide 19 mmol/L (23-31); Chloride 108 mmol/L (98-107); Estimated GFR-MDRD 55; Glucose 109 mg/dL (83-110); Potassium 3.7 mmol/L (3.5-5.1); Sodium 136 mmol/L (136-145)
[2018-08-08] MEDS: Levothyroxine Sodium 125 MCG TAB PO SCH ×2 (06:00→06:01)
[2018-08-08] MEDS ORDERED: PROPOFOL 20 ML ONE (10:29)
[2018-08-08] MEDS ORDERED: PROPOFOL 200 MG/20 ML VIAL ONE (11:11)
--- NOTE | 2018-08-08 11:22 | OP ---
DATE OF PROCEDURE: 08/08/2018 PROCEDURE PERFORMED: Electrocardioversion. INDICATIONS: An 87-year-old woman with paroxysmal atrial fibrillation. DESCRIPTION OF PROCEDURE: The patient was taken to the PACU. The patient was sedated by Anesthesiology. The patient was shocked with 200 joules of synchronized electricity. The patient converted to normal sinus rhythm. IMPRESSION: Successful electrocardioversion. Job ID: [id number]
[2018-08-08] MEDS: Apixaban 5 MG TAB PO SCH ×2 (11:59→20:23)
[2018-08-08] MEDS: glipiZIDE 5 MG TAB PO SCH (11:59)
[2018-08-08] MEDS: Furosemide 40 MG/4 ML VIAL SLOW IVP SCH (12:00)
[2018-08-08] MEDS ORDERED: Furosemide 40 MG/4 ML VIAL SLOW IVP SCH (12:00)
[2018-08-08] MEDS: Lisinopril 10 MG TAB PO SCH (12:00)
[2018-08-08] MEDS: Fluticasone Propionate Nasal Spray 16 gm Bottle NASAL SCH (12:00)
[2018-08-08 12:04] VITALS: BP 119/94
--- NOTE | 2018-08-08 12:27 | OP ---
DATE OF PROCEDURE: 08/08/2018 PROCEDURE PERFORMED: Transesophageal echocardiogram. INDICATIONS: An 87-year-old woman with paroxysmal atrial fibrillation. DESCRIPTION OF PROCEDURE: The patient was taken to the PACU. The patient was sedated by Anesthesiology. Transesophageal probe was placed into the distal esophagus and stomach. Echocardiographic images were obtained. The transesophageal probe was fine, it was removed. FINDINGS: 1. Normal left ventricular systolic function. 2. Marked biatrial enlargement. 3. Severe mitral regurgitation. 4. Moderate tricuspid regurgitation. 5. Mild aortic regurgitation. 6. No thrombus in left atrial or left atrial appendage. 7. Atherosclerotic debris in the descending aorta. 8. Large pleural effusion. IMPRESSION: No formed thrombus in the left atrial or left atrial appendage. Job ID: [id number]
--- NOTE | 2018-08-08 12:39 | PRG ---
DATE OF SERVICE: 08/08/2018 SUBJECTIVE: Ms. Rivas had no complaints other than wanting to go home. OBJECTIVE: VITAL SIGNS: Blood pressure 119/94. She is afebrile. Blood pressure 158/86, respiratory rate 18. LUNGS: Clear anteriorly and laterally. HEART: Irregular. ABDOMEN: Soft. LABORATORY DATA: White count was not repeated today. Sodium 136, potassium 3.7, chloride 108, bicarb 19, BUN 16, and creatinine 0.97. ASSESSMENT AND PLAN: She is scheduled for a transesophageal echocardiogram and cardioversion today. She was taken to the PACU and was cardioverted with 200 joules. She is back in sinus rhythm. We will continue to follow while she is in intermediate care unit. Job ID: [id number]
--- NOTE | 2018-08-08 16:08 | PDOC.PN ---
- Subjective Encounter Start Date: 08/08/18 Encounter Start Time: 16:06 Subjective: feels much better today -: s/p successful DC CV today post LINN w/o LA thrombus - Objective Resuscitation Status - Order Detail: 08/05/18 02:18 Resuscitation Status Routine Resuscitation Status: FULL: Full Resuscitation MAR Reviewed: Yes Vital Signs & Weight: Vital Signs (12 hours) Temp BP 08/08/18 12:00 119/94 H 08/08/18 07:15 97.9 F Weight Admit Weight 213 lb 14.4 oz Weight 213 lb 14.4 oz Most Recent Monitor Data Heart Rate from ECG 77 NIBP 183/113 NIBP BP-Mean 136 Respiration from ECG 21 SpO2 94 I&O: 08/07/18 08/08/18 08/09/18 06:59 06:59 06:59 Intake Total 1335 1364 Output Total 1000 800 Balance 335 564 Result Diagrams: 08/06/18 05:34 08/08/18 04:54 Additional Labs: Accuchecks 08/08/18 08/08/18 08/07/18 12:48 05:32 19:52 POC Glucose 102 102 199 H 08/07/18 16:39 POC Glucose 210 H Microbiology 08/04/18 22:46 Urine voided Urine Culture - Final Providencia rettgeri 08/05/18 10:28 Venous blood - Left Hand Blood Culture - Preliminary NO GROWTH AT 48 HOURS 08/05/18 10:28 Venous blood - Left Arm Blood Culture - Preliminary NO GROWTH AT 48 HOURS Phys Exam - Physical Examination Constitutional: NAD not hyperventilating today HEENT: PERRLA, moist MMs, sclera anicteric, oral pharynx no lesions Neck: no nodes, no JVD, supple, full ROM Respiratory: no wheezing, no rales, no rhonchi, clear to auscultation bilateral Cardiovascular: RRR, no significant murmur Gastrointestinal: soft, non-tender, no distention, positive bowel sounds Musculoskeletal: no edema, pulses present Neurological: non-focal, normal sensation, moves all 4 limbs Psychiatric: normal affect, A&O x 3 Skin: no rash Dx/Plan (1) Acute respiratory failure with hypoxia Code(s): J96.01 - ACUTE RESPIRATORY FAILURE WITH HYPOXIA Status: Acute Comment: improving. Multifactorial. (2) Atrial fibrillation with RVR Code(s): I48.91 - UNSPECIFIED ATRIAL FIBRILLATION Status: Acute Comment: s/ p successful DC CV.NSR now Cont Eliquis. ECHO shows poor EF in comaprison to previous ECHO awaiting final cardiology recs. May need Cath (3) UTI (urinary tract infection) Status: Acute Comment: cont Rocephin for Providencia based on sensitivities (4) Pulmonary edema Code(s): J81.1 - CHRONIC PULMONARY EDEMA Status: Acute Qualifiers: Chronicity: acute Qualified Code(s): J81.0 - Acute pulmonary edema Comment: lasix prn. due to a-fib w RVR (5) Chronic anticoagulation Code(s): Z79.01 - [facility] (CURRENT) USE OF ANTICOAGULANTS Status: Chronic Comment: for H/O DVT. continue given new A-fib (6) H/O deep venous thrombosis Code(s): Z86.718 - PERSONAL HISTORY OF OTHER VENOUS THROMBOSIS AND EMBOLISM Status: Chronic (7) Obesity (BMI 30-39.9) Code(s): E66.9 - OBESITY, UNSPECIFIED Status: Chronic (8) CAD (coronary artery disease) Code(s): I25.10 - ATHSCL HEART DISEASE OF [place] CORONARY ARTERY W/O ANG PCTRS Status: Chronic (9) Dyslipidemia Code(s): E78.5 - HYPERLIPIDEMIA, UNSPECIFIED Status: Chronic (10) H/O: CVA (cerebrovascular accident) Code(s): Z86.73 - PRSNL HX OF TIA (TIA), AND CEREB INFRC W/O RESID DEFICITS Status: Chronic (11) Hypertension Code(s): I10 - ESSENTIAL (PRIMARY) HYPERTENSION Status: Chronic (12) Hypothyroid Code(s): E03.9 - HYPOTHYROIDISM, UNSPECIFIED Status: Chronic Comment: cont levothyroxine. TSH slightly high but needs to checked again when acute illness is Over (13) DM2 (diabetes mellitus, type 2) Status: Chronic Comment: add ISS w accuchecks. Cont PO meds glipizide - Plan PT/OT, respiratory therapy, incentive spirometry, out of bed/ambulate, DVT proph w/SCDs Clinically better.Amiodarone & Cardiazem drips stopped. maiantianing NSR. -: monitor -: HD stable. -: am labs.leucocytosis improving * . Review of Systems - Review of Systems Constitutional: weakness, malaise. negative: fever, chills, sweats, other Respiratory: Shortness of Breath, SOB with Excertion. negative: Cough, Dry, Hemoptysis, Pleuritic Pain, Sputum, Wheezing Cardiovascular: negative: chest pain, palpitations, orthopnea, paroxysmal nocturnal dyspnea, edema, light headedness, other Gastrointestinal: negative: Nausea, Vomiting, Abdominal Pain, Diarrhea, Constipation, Melena, Hematochezia, Other Genitourinary: negative: Dysuria, Frequency, Incontinence, Hematuria, Retention , Other Musculoskeletal: negative: Neck Pain, Shoulder Pain, Arm Pain, Back Pain, Hand Pain, Leg Pain, Foot Pain, Other Skin: negative: Rash, Lesions, Flynn, Bruising, Other Neurological: negative: Weakness, Numbness, Incoordination, Change in Speech, Confusion, Seizures, Other - Medications/Allergies Allergies/Adverse Reactions: Allergies Allergy/AdvReac Type Severity Reaction Status Date / Time codeine Allergy Verified 09/29/13 22:39 morphine Allergy Verified 09/29/13 22:39 Vovkwpz-Avc-Eir Reductase Allergy Verified 08/08/15 08:22 Inhibitor Medications: Current Medications Amiodarone HCl (Cordarone) 400 mg PO BID [facility] Apixaban (Eliquis) 5 mg PO BID [facility] Last Admin: 08/08/18 11:59 Dose: 5 mg Dextrose/Water (Dextrose 50%) 25 gm SLOW IVP PRN PRN PRN Reason: Hypoglycemia Fluticasone Propionate (Flonase Nasal [place]) 0 gm NASAL DAILY [facility] Last Admin: 08/08/18 12:00 Dose: 1 spr Furosemide (Lasix) 40 mg SLOW IVP DAILY [facility] Glipizide (Glucotrol) 5 mg PO DAILY[facility] Last Admin: 08/08/18 11:59 Dose: 5 mg Glucagon (Glucagon) 1 mg IM PRN PRN PRN Reason: Hypoglycemia Ceftriaxone Sodium 1 gm/ (Sodium Chloride) 100 mls @ 200 mls/hr IVPB Q24HR [facility] Last Admin: 08/08/18 04:12 Dose: 100 mls Dextrose/Water (D5w) 1,000 mls @ 0 mls/hr IV .Q0M PRN PRN Reason: Hypoglycemia Insulin Human Lispro (Humalog) 0 units SC .MODERATE SLIDING SC PRN PRN Reason: Moderate Correctional Scale Last Admin: 08/07/18 18:35 Dose: 4 unit Insulin Human Lispro (Humalog) 0 units SC .BEDTIME SLIDING SC PRN PRN Reason: Bedtime Correctional Scale Levothyroxine Sodium (Synthroid) 125 mcg PO 0600 [facility] Last Admin: 08/08/18 06:01 Dose: Not Given Lisinopril (Zestril) 10 mg PO DAILY [facility] Last Admin: 08/08/18 12:00 Dose: 10 mg Non-Formulary Medication (Alirocumab [Praluent Pen]) 75 mg SQ [facility]
[2018-08-08] MEDS: Amiodarone 200 MG TAB PO SCH (20:22)
[2018-08-09] MEDS: cefTRIAXone\\ROCEPHIN 1 GM in Sodium Chloride 0.9% 100 ML IVPB SCH (03:36)
[2018-08-09] MEDS: Levothyroxine Sodium 125 MCG TAB PO SCH (05:48)
[2018-08-09 06:15] LABS: #Eosinphils 0.2 thou/uL (0.0-0.7); #Lymphocytes 1.8 thou/uL (1.20-3.40); #Monocytes 0.5 thou/uL (0.11-0.59); %Basophils 0.6 % (0.0-1.0); %Eosinophils 2.9 % (0.0-10.0); %Lymphocytes 23.1 % (21.0-51.0); %Monocytes 7.1 % (0.0-10.0); %Neutrophils 66.2 % (42.0-75.0); Hemoglobin 12.9 g/dL (12.0-16.0); Mean Corpuscular Hemoglobin 26.9 pg (27.0-31.0); Mean Corpuscular Volume 86.8 fL (78.0-98.0); Mean Platelet Volume 8.7 fL (7.4-10.4); Platelet Count 321 thou/uL (130-400); RBC Distribution Width 15.7 % (11.5-14.5); Red Blood Cell (RBC) Count 4.79 mill/uL (4.20-5.40); White Blood Cell (WBC) Count 7.6 thou/uL (4.8-10.8)
[2018-08-09 06:28] LABS: Anion Gap 12 mmol/L (10-20); BUN (Urea Nitrogen) 13 mg/dL (9.8-20.1); Calc. Creatinine Clearance 66 mL/min (70-130); Calcium 8.2 mg/dL (7.8-10.44); Carbon Dioxide 22 mmol/L (23-31); Chloride 106 mmol/L (98-107); Estimated GFR-MDRD 55; Glucose 120 mg/dL (83-110); Potassium 3.3 mmol/L (3.5-5.1); Sodium 137 mmol/L (136-145)
[2018-08-09] MEDS ORDERED: Furosemide 20 MG TAB PO SCH (10:30)
[2018-08-09 10:45] VITALS: TEMP 97.7
[2018-08-09] MEDS: Fluticasone Propionate Nasal Spray 16 gm Bottle NASAL SCH (11:08)
[2018-08-09] MEDS: Apixaban 5 MG TAB PO SCH (11:08)
[2018-08-09] MEDS: glipiZIDE 5 MG TAB PO SCH (11:08)
[2018-08-09] MEDS: Amiodarone 200 MG TAB PO SCH (11:08)
[2018-08-09] MEDS: Furosemide 40 MG/4 ML VIAL SLOW IVP SCH (11:09)
[2018-08-09] MEDS: Potassium Chloride 20 MEQ TAB PO SCH ×2 (11:09→13:30)
[2018-08-09] MEDS: Lisinopril 10 MG TAB PO SCH (11:09)
--- NOTE | 2018-08-10 06:19 | DIS ---
DATE OF ADMISSION: 08/04/2018 DATE OF DISCHARGE: 08/09/2018 CONDITION: At the time of discharge, stable and improved. DISCHARGE DISPOSITION: Home. PRIMARY CARE PHYSICIAN: Jaimie Simpson, Nurse practitioner. DISCHARGE DIAGNOSES: 1. Acute hypoxic respiratory failure. 2. Atrial fibrillation with rapid ventricular rate, status post LINN and successful DC cardioversion. 3. Urinary tract infection with Providencia. 4. Acute pulmonary edema due to atrial fibrillation with RVR. 5. Chronic anticoagulation for atrial fibrillation and history of deep venous thrombosis. 6. History of deep venous thrombosis. 7. Obesity. 8. Coronary artery disease. 9. Dyslipidemia. 10. History of cerebrovascular accident. 11. Hypertension. 12. Hypothyroidism. 13. Diabetes mellitus type 2. 14. Chronic debilitated state with chronic bed-bound status. DISCHARGE MEDICATIONS: New medications; 1. Amiodarone 400 mg p.o. b.i.d. for 2 weeks, then 200 mg p.o. b.i.d. for 2 weeks, and then as per Dr. Hunt. 2. Lasix 20 mg daily. 3. Potassium chloride 20 mEq daily. Resume home medications as follows; 1. Eliquis 5 mg p.o. b.i.d. 2. Levothyroxine 125 mcg daily. 3. Lisinopril 10 mg daily. 4. Praluent pen 75 mg subcu. 5. Glucotrol 5 mg daily. 6. Fluconazole 100 mg daily. IN-HOUSE CONSULTATIONS: 1. Pulmonary Critical Care Medicine. 2. Cardiology, Dr. Serrano and Dr. Hunt. PROCEDURES DONE IN THE HOSPITAL: 1. Transthoracic echocardiogram which shows EF of 35% to 40% with moderate mitral regurgitation. 2. Transthoracic echocardiogram which shows no evidence of left atrial thrombus, normal left ventricular systolic function with marked biatrial enlargement, severe mitral regurgitation, and moderate tricuspid regurgitation. 3. Successful 200 joule DC cardioversion by Dr. Hunt on 08/08/2018. HISTORY OF PRESENTING ILLNESS: Ms. Rivas is an 87-year-old female with known history as outlined above with CVA, coronary artery disease, status post stenting, diabetes, hypertension, hyperlipidemia, who presented to the emergency room with complaints of shortness of breath, worsening for 1 to 2 days without any inciting factors. She was found to be in atrial fibrillation with RVR upon presentation and chest x-ray suggested acute cardiogenic pulmonary edema. She was started on Cardizem drip and was admitted to [facility]. Urinalysis was suggestive of UTI upon presentation. Her creatinine was 1.21, lactic acid 2.8. Upon presentation, troponin was 0.024. She was on Eliquis for her history of DVT. Please see admission history and physical dictated by Dr. Caba on 08/05/2018. HOSPITAL COURSE: The patient was seen by Pulmonary Critical Care Medicine while the patient was in [facility]. Cardiology was also consulted and echo was done, which showed reduced ejection fraction. Dr. Serrano saw the patient and she was started on amiodarone drip as well as Cardizem drip. Eventually, her own pastry baker saw her after the on-call weekend by Dr. Serrano. Dr. Hunt recommended DC cardioversion after transthoracic echocardiogram. This was done yesterday and was successful and the patient had admitted relief from her air hunger. She was diuresed as well with Lasix in the hospital and was started on low-dose Lasix for home as well. As of this morning, the patient is feeling back to baseline. She will continue the Eliquis as well as amiodarone as per dictated dose above. I have discussed this with the pastry baker, Dr. Hunt, and new prescriptions were provided to the patient. Rehab options were discussed with the patient and she declined placement in a rehab as well as home with home health. She reports that she is bed bound and has no inclination to do any physical therapy because she does not have "any hip joints." This was discussed with her daughter at bedside also who corroborates the story and they are okay with going home without any therapy. She is cleared for discharge from Cardiology as of this morning. I have seen and examined the patient prior to discharge. PHYSICAL EXAMINATION: This morning; VITAL SIGNS: Blood pressure of 157/97, pulse of 78, afebrile, in no acute distress. CHEST: Clear to auscultation bilaterally. HEART: Rate and rhythm are regular. LABORATORY DATA: Discharge blood work; WBCs 7.6 down from 16.1. Serum chemistries are within normal limit. Urine culture showed Providencia for which she has received 7 days treatment with Rocephin, which was sensitive for this bacteria. DISCHARGE PLAN: Discharge plan was discussed with the patient and her daughter and they verbalized understanding. TOTAL TIME SPENT: 35 minutes. Job ID: [id number]
[2018-08-10] MEDS ORDERED: Furosemide 20 MG TAB PO SCH (09:00)
[2018-08-10] MEDS ORDERED: Potassium Chloride 20 MEQ TAB PO SCH (09:00)
== END 2018-08-09 14:55 | disposition home or self-care (01) | DRG 189 ==
LOC: ERS 20:03 → IMCU/EMU 21:40
PROVIDERS: ADMIT Hospitalist; ATTEND Hospitalist
PROC: B24BZZ4 Ultrasonography of Heart with Aorta, Transesophageal (ICD-10-PCS; principal; 2018-08-08)
PROC: 5A2204Z Restoration of Cardiac Rhythm, Single (ICD-10-PCS; 2018-08-08)
DX: J96.01 Acute respiratory failure with hypoxia (principal); J81.0 Acute pulmonary edema; N39.0 Urinary tract infection, site not specified; E87.2 Acidosis; I48.91 Unspecified atrial fibrillation; I25.10 Atherosclerotic heart disease of native coronary artery without angina pectoris; E11.9 Type 2 diabetes mellitus without complications; I44.7 Left bundle-branch block, unspecified; E78.00 Pure hypercholesterolemia, unspecified; E03.9 Hypothyroidism, unspecified; B96.4 Proteus (mirabilis) (morganii) as the cause of diseases classified elsewhere; Z16.29 Resistance to other single specified antibiotic; E66.9 Obesity, unspecified; Z74.01 Bed confinement status; Z95.5 Presence of coronary angioplasty implant and graft; Z90.710 Acquired absence of both cervix and uterus; Z88.5 Allergy status to narcotic agent; Z79.01 Long term (current) use of anticoagulants; Z79.899 Other long term (current) drug therapy; Z79.84 Long term (current) use of oral hypoglycemic drugs; I25.2 Old myocardial infarction; Z86.73 Personal history of transient ischemic attack (TIA), and cerebral infarction without residual deficits; Z68.36 Body mass index [BMI] 36.0-36.9, adult
CPT/HCPCS: 36415; 36416; 51701; 70450; 71045; 80048; 80053; 81003; 81015; 83605; 83880; 84145; 84443; 84484; 85025; 85610; 85730; 87040; 87077; 87086; 87186; 92960; 93005; 93306; 93312; 96365; 96366; 96376; A4353; J0282; J0696; J1940; J2704; J3490; J7070

== ENCOUNTER 2018-09-22 09:36 | Emergency (ER) | payer MEDICARE ==
[2018-09-22 10:03] LABS: #Basophils 0.1 thou/uL (0.0-0.2); #Eosinphils 0.3 thou/uL (0.0-0.7); #Lymphocytes 2.5 thou/uL (1.20-3.40); #Monocytes 0.7 thou/uL (0.11-0.59); #Neutrophils 6.5 thou/uL (1.40-6.50); %Basophils 0.5 % (0.0-1.0); %Eosinophils 3.3 % (0.0-10.0); %Lymphocytes 24.8 % (21.0-51.0); %Monocytes 6.5 % (0.0-10.0); %Neutrophils 64.8 % (42.0-75.0); Hemoglobin 11.3 g/dL (12.0-16.0); Mean Corpuscular HGB CONC 31.5 g/dL (32.0-36.0); Mean Corpuscular Hemoglobin 27.3 pg (27.0-31.0); Mean Corpuscular Volume 86.6 fL (78.0-98.0); Mean Platelet Volume 8.7 fL (7.4-10.4); Platelet Count 258 thou/uL (130-400); RBC Distribution Width 15.8 % (11.5-14.5); Red Blood Cell (RBC) Count 4.12 mill/uL (4.20-5.40); White Blood Cell (WBC) Count 10.1 thou/uL (4.8-10.8)
--- NOTE | 2018-09-22 10:23 | RAD ---
XR Chest 1 View Portable History: Shortness of breath Comparison: Radiograph August 06, 2018 Findings: Heart size is enlarged. Mild portal venous congestion. Mild peripheral scarring both lung b ases. No pneumothorax. No acute osseous abnormality. Impression: Improved pulmonary edema from the comparison examination with resolution of effusions.
[2018-09-22 10:36] LABS: ALT (SGPT) 20 U/L (8-55); AST (SGOT) 26 U/L (5-34); Albumin 3.4 g/dL (3.4-4.8); Alkaline Phosphatase 136 U/L (40-150); BUN (Urea Nitrogen) 18 mg/dL (9.8-20.1); Bilirubin, Total 0.5 mg/dL (0.2-1.2); CK (CPK) 27 U/L (29-168); Calc. Creatinine Clearance 0 mL/min (70-130); Calcium 8.7 mg/dL (7.8-10.44); Carbon Dioxide 17 mmol/L (23-31); Chloride 110 mmol/L (98-107); Estimated GFR-MDRD 38; Globulin 3.5 g/dL (2.4-3.5); Glucose 233 mg/dL (83-110); Potassium 4.2 mmol/L (3.5-5.1); Protein, Total 6.9 g/dL (6.0-8.3); Sodium 138 mmol/L (136-145)
[2018-09-22] MEDS ORDERED: Furosemide 40 MG/4 ML VIAL ONE (11:11)
[2018-09-22 11:39] LABS: Anion Gap 15 mmol/L (10-20)
== END 2018-09-22 13:13 | disposition home or self-care (01) ==
LOC: ERS 09:36
DX: I50.9 Heart failure, unspecified (principal); R60.0 Localized edema; I25.2 Old myocardial infarction; Z86.73 Personal history of transient ischemic attack (TIA), and cerebral infarction without residual deficits
CPT/HCPCS: 36415; 71045; 80053; 82550; 83880; 84484; 85025; 93005; 96374; J1940

== ENCOUNTER 2018-09-29 13:08 | Inpatient (IN) | payer MEDICARE ==
[2018-09-29 14:12] LABS: #Basophils 0.1 thou/uL (0.0-0.2); #Eosinphils 0.2 thou/uL (0.0-0.7); #Lymphocytes 2.9 thou/uL (1.20-3.40); #Monocytes 0.9 thou/uL (0.11-0.59); %Basophils 0.7 % (0.0-1.0); %Eosinophils 1.6 % (0.0-10.0); %Lymphocytes 26.1 % (21.0-51.0); %Monocytes 7.9 % (0.0-10.0); %Neutrophils 63.7 % (42.0-75.0); Mean Corpuscular HGB CONC 31.4 g/dL (32.0-36.0); Mean Corpuscular Hemoglobin 26.8 pg (27.0-31.0); Mean Corpuscular Volume 85.5 fL (78.0-98.0); Mean Platelet Volume 8.6 fL (7.4-10.4); Platelet Count 292 thou/uL (130-400); RBC Distribution Width 15.8 % (11.5-14.5); Red Blood Cell (RBC) Count 4.11 mill/uL (4.20-5.40)
--- NOTE | 2018-09-29 14:28 | RAD ---
EXAM: Chest one view: HISTORY: Dyspnea and shortness of breath, follow-up COMPARISON: 09/22/2018 FINDINGS: Heart size: Within normal limits. Lungs: Patchy linear and interstitial parenchymal changes including in the right suprahilar region, r ight infrahilar region, left midlung zone, and left lower lung zone, these markings do appear somewhat more prominent than on the prior study. No significant pleural effusion or acute edema. No confluent pneumonia. IMPRESSION: Linear and interstitial increased markings bilaterally somewhat more prominent than prior study, poss ibilities include that of atypical pneumonia or pneumonitis and/or bilateral subsegmental atelectasis. Atherosclerosis of the aorta. Continued short-term follow-up for clearing or stability.
[2018-09-29 14:38] LABS: ALT (SGPT) 17 U/L (8-55); AST (SGOT) 16 U/L (5-34); Albumin 3.4 g/dL (3.4-4.8); Alkaline Phosphatase 134 U/L (40-150); Anion Gap 14 mmol/L (10-20); BUN (Urea Nitrogen) 20 mg/dL (9.8-20.1); Bilirubin, Total 0.5 mg/dL (0.2-1.2); Calc. Creatinine Clearance 0 mL/min (70-130); Calcium 8.6 mg/dL (7.8-10.44); Carbon Dioxide 21 mmol/L (23-31); Chloride 107 mmol/L (98-107); Estimated GFR-MDRD 30; Globulin 3.9 g/dL (2.4-3.5); Glucose 179 mg/dL (83-110); Potassium 3.8 mmol/L (3.5-5.1); Protein, Total 7.3 g/dL (6.0-8.3); Sodium 138 mmol/L (136-145)
[2018-09-29] MEDS ORDERED: Furosemide 40 MG/4 ML VIAL ONE (16:14)
[2018-09-29] MEDS ORDERED: Vancomycin HCl 1.5 GM in Sodium Chloride 0.9% 250 ML 300 ML IVPB SCH (16:30)
[2018-09-29 16:38] LABS: Bacteria/HPF 3+ HPF (None Seen); Bilirubin Negative (Negative); Blood, Urine Negative (Negative); Clarity Clear (Clear); Glucose, Urine (Dipstick) Normal (Negative); Leukocyte Negative Leu/uL (Negative); Nitrite 2+ (Negative); Protein, Urine (Dipstick) Negative (Neg-Trace); RBC/HPF 0-3 HPF (0-3); Squamous Epithelial 0-3 HPF (0-3); Urobilinogen Normal mg/dL (Less than 2); WBC/HPF 0-3 HPF (0-3)
--- NOTE | 2018-09-29 17:25 | ULT ---
ULTRASOUND DOPPLER DUPLEX VENOUS BILATERAL LOWER EXTREMITIES: DATE: 09/29/2018 HISTORY: 88-year-old female with bilateral lower extremity pain and edema. TECHNIQUE: Grayscale, color-flow, and spectral analysis, of the bilateral common femoral, profunda femoral, grea ter saphenous, femoral, popliteal, and posterior tibial, veins. FINDINGS: Technically difficult, limited exam because of diffusely thickened soft tissues and body habitus. Fur thermore, because the patient was in pain, she was unable to tolerate much compression. Poor visualization of veins. Incomplete, partial compressibility of right common femoral vein. Similar fin ding at right popliteal vein. Left popliteal vein could not be visualized at all because of body habitus and patient inability to assume optimal position. No definite DVT identified in left lower ex tremity veins. IMPRESSION: 1. Very limited, suboptimal evaluation. 2. Nonocclusive deep venous thrombosis in the right common femoral vein and right popliteal vein.
[2018-09-29] MEDS ORDERED: Ondansetron ODT 4 MG TAB PO PRN (21:45)
[2018-09-29] MEDS ORDERED: Ondansetron PF 4 MG/2 ML Vial IVP PRN (21:45)
[2018-09-29 21:57] VITALS: BMI 38.0
[2018-09-29] MEDS: Acetaminophen 325 MG TAB PO PRN (22:16)
[2018-09-29] MEDS: cefTRIAXone\\ROCEPHIN 1 GM in Sodium Chloride 0.9% 100 ML IVPB SCH (22:17)
[2018-09-30] MEDS ORDERED: HumaLOG 300 UNITS/3 ML VIAL SC PRN (00:59)
[2018-09-30] MEDS ORDERED: Dextrose 5% in Water 1,000 ML IV PRN (00:59)
[2018-09-30] MEDS ORDERED: Dextrose 50% Abboject 50 ML SYRINGE SLOW IVP PRN (00:59)
--- NOTE | 2018-09-30 02:01 | HP ---
PRIMARY CARE DOCTOR: Jossie Maya MD. CODE STATUS: Full code. TIME OF EVALUATION: 8:20. CHIEF COMPLAINT: Leg swelling. HISTORY OF PRESENT ILLNESS: This is an 88-year-old female patient with past medical history of CVA in the past, coronary artery disease with [place] in 2004, diabetes type 2, hyperlipidemia, hypothyroidism. The patient came to the hospital complaining of leg swelling, bilateral, with bilateral redness. No clear triggers, no alleviating factors. The patient has significant transudative fluid due to skin structure in different areas of the legs. Symptoms were severe. REVIEW OF SYSTEMS: CONSTITUTIONAL: No fever, chills, or generalized weakness. RESPIRATORY: No cough, sputum production, shortness of breath. CARDIOVASCULAR: No chest pain or palpitations. GASTROINTESTINAL: No nausea. No vomiting, diarrhea or abdominal pain. MANAGER COMPETITIVE INTELLIGENCE: No dizziness, headache or feeling lightheaded. GENITOURINARY: No burning on urination. EXTREMITIES: Bilateral leg swelling with bilateral lower extremity transudative fluids due to skin tears. All other systems were reviewed and negative except for the findings mentioned above. PAST MEDICAL HISTORY: Positive for the findings mentioned in HPI. PAST SURGICAL HISTORY: Angioplasty with stent placement x3, hysterectomy, cataract. PSYCHIATRIC HISTORY: No previous psych history. SOCIAL HISTORY: No alcohol, no drugs, no smoking history. Lives at home with family. FAMILY HISTORY: Includes coronary artery disease, diabetes. KNOWN ALLERGIES: To codeine, phosphate, morphine, and prednisone. REPORTED MEDICATIONS: 1. Lasix. 2. Eliquis. 3. Glipizide. 4. Levothyroxine. 5. Lisinopril. 6. Cardizem. PHYSICAL EXAMINATION: VITAL SIGNS: On presentation, blood pressure 119/65 with heart rate 92, respiratory rate was 18, temperature 97.8. Pain was 0/10. Oxygen saturation was 98% on room air. GENERAL: The patient is alert, oriented, not in acute distress. HEENT: Eyes, normal conjunctiva. Moist oral mucosa. Anicteric. No JVD. RESPIRATORY: Bilateral air entry. No rales. No wheezes. Symmetric expansion. CARDIOVASCULAR: Normal rate, regular rhythm. No murmurs. No gallops. No edema. ABDOMEN: Soft, normal bowel sounds. MUSCULOSKELETAL: Baseline range of motion and strength. SKIN: Warm, intact. No pallor. No rash. No redness except for the lower extremities the patient has bilateral redness with bilateral oozing of fluids due to skin laceration. Capillary refill seems to be intact. NEUROLOGIC: No evidence of any new focal weakness. Cranial nerves seems to be intact. PSYCHIATRIC: The patient is in good mood. No anxiety. Optimal judgment. EKG was reviewed. The patient has atrial fibrillation with premature ventricular or aberrantly conducted complexes, nonspecific intraventricular block, QRS duration 130, QT corrected 489. LABORATORY DATA: Reviewed. The patient has white count 11, hemoglobin 11, MCV 85.5, platelet count 292. Chemistry: Sodium 138, potassium 3.8, chloride 107, carbon dioxide 21, anion gap 14, BUN 20, creatinine 1.61, the previous creatinine was 1.33 in August this year. GFR 30, glucose 179, lactic acid 1.5, beta-natriuretic peptide 267. Urine was done was negative. ASSESSMENT AND PLAN: The patient will be placed in the hospital with following medical problems. 1. Acute congestive heart failure exacerbation. The patient has bilateral leg edema that has worsened. The patient will be started on Lasix IV. We will reconcile home medications, adjust treatment as needed. 2. Possible bilateral lower extremity leg cellulitis. The patient has redness with multiple excoriation with some drainage of fluids from the legs. The patient has been started on antibiotics. We will continue for now. The patient also will be started on wound care. 3. Chronic kidney disease. We will monitor kidney function. Creatinine is mildly elevated. If not improving, might need Nephrology for evaluation of system with the patient. 4. Uncontrolled diabetes with hyperglycemia. Blood sugar 179, reconcile home medications, sliding scale for optimal control. 5. Deep venous thrombosis prophylaxis. Job ID: [id number]
[2018-09-30 04:56] LABS: #Basophils 0.1 thou/uL (0.0-0.2); #Eosinphils 0.2 thou/uL (0.0-0.7); #Lymphocytes 2.5 thou/uL (1.20-3.40); #Monocytes 0.8 thou/uL (0.11-0.59); #Neutrophils 5.3 thou/uL (1.40-6.50); %Basophils 0.7 % (0.0-1.0); %Eosinophils 1.8 % (0.0-10.0); %Monocytes 9.5 % (0.0-10.0); Hemoglobin 9.9 g/dL (12.0-16.0); Mean Corpuscular HGB CONC 31.6 g/dL (32.0-36.0); Mean Corpuscular Hemoglobin 27.4 pg (27.0-31.0); Mean Corpuscular Volume 86.6 fL (78.0-98.0); Mean Platelet Volume 9.1 fL (7.4-10.4); Platelet Count 241 thou/uL (130-400); RBC Distribution Width 15.8 % (11.5-14.5); Red Blood Cell (RBC) Count 3.62 mill/uL (4.20-5.40); White Blood Cell (WBC) Count 8.9 thou/uL (4.8-10.8)
[2018-09-30 05:18] LABS: Anion Gap 12 mmol/L (10-20); BUN (Urea Nitrogen) 20 mg/dL (9.8-20.1); Calc. Creatinine Clearance 40 mL/min (70-130); Calcium 8.6 mg/dL (7.8-10.44); Carbon Dioxide 23 mmol/L (23-31); Chloride 107 mmol/L (98-107); Estimated GFR-MDRD 32; Glucose 167 mg/dL (83-110); Potassium 3.8 mmol/L (3.5-5.1); Sodium 138 mmol/L (136-145)
[2018-09-30] MEDS: Acetaminophen 325 MG TAB PO PRN ×3 (06:29→21:37)
[2018-09-30] MEDS: Furosemide 40 MG/4 ML VIAL SLOW IVP SCH (08:01)
[2018-09-30] MEDS ORDERED: Enoxaparin Sodium 30 MG/0.3 ML SYRINGE SC SCH (09:00)
[2018-09-30] MEDS ORDERED: Alirocumab [Praluent Pen] 75 MG SC SCH (15:45)
--- NOTE | 2018-09-30 15:54 | PRG ---
DATE OF SERVICE: 09/30/2018 SUBJECTIVE: The patient is seen and examined at the bedside. She is doing slightly better. She does not complain much about shortness of breath. No fever. No chills. No cough. OBJECTIVE: VITAL SIGNS: Blood pressure is 114/66, pulse is 68, temperature is 97.6, respirations 16, O2 saturation is 98% on room air. HEENT: Head is atraumatic and normocephalic. Eyes are PERRLA. Sclerae are nonicteric. Conjunctivae are palish. Oral mucosa is moist. NECK: Supple. LUNGS: Breath sounds diminished at both bases. HEART: S1 and S2 are normal. No S3. No S4. ABDOMEN: Soft and nontender. Bowel sounds are present. EXTREMITIES: She has significant erythema of the madrigal of the right lower extremity and some mild redness to the left madrigal of the left lower extremity. NEUROLOGIC: She is alert and oriented x4. There are no any motor deficits. LABORATORY DATA: Blood cultures negative x2. Urine clean-catch specimen is growing gram-negative rods. We are waiting for identification of that bacteria. IMPRESSION: 1. Congestive heart failure. 2. Bilateral leg edema. 3. Possible right lower extremity leg cellulitis. 4. Chronic kidney disease. 5. Urinary tract infection. 6. Uncontrolled diabetes with hyperglycemia. PLAN: Plan is to continue her current regimen, which includes ceftriaxone and vancomycin. This should cover both her legs and her urine infection. We are going to continue her furosemide IV push. We will restart her home medications. We will check her BMP and CBC tomorrow morning. We will continue DVT prophylaxis with apixaban, and we are going to stop her Lovenox she was started on at the time of admission. She is not ambulatory for several years. We will see how she looks tomorrow and how her culture of blood and urine comes out and make decision about further treatments. Job ID: [id number]
[2018-09-30] MEDS: Vancomycin HCl 1 GM in Premix Bag 1 BAG IVPB SCH (18:02)
[2018-09-30] MEDS: cefTRIAXone\\ROCEPHIN 1 GM in Sodium Chloride 0.9% 100 ML IVPB SCH (21:37)
[2018-09-30] MEDS: Apixaban 2.5 MG TAB PO SCH (21:37)
[2018-09-30] MEDS: Amiodarone 200 MG TAB PO SCH (21:37)
[2018-10-01] MEDS: Levothyroxine Sodium 125 MCG TAB PO SCH (04:07)
[2018-10-01 04:49] LABS: #Basophils 0.1 thou/uL (0.0-0.2); #Eosinphils 0.2 thou/uL (0.0-0.7); #Lymphocytes 2.9 thou/uL (1.20-3.40); #Neutrophils 6.5 thou/uL (1.40-6.50); %Basophils 0.5 % (0.0-1.0); %Eosinophils 1.5 % (0.0-10.0); %Lymphocytes 27.5 % (21.0-51.0); %Monocytes 9.6 % (0.0-10.0); %Neutrophils 60.9 % (42.0-75.0); Hemoglobin 10.2 g/dL (12.0-16.0); Mean Corpuscular Hemoglobin 27.8 pg (27.0-31.0); Mean Corpuscular Volume 86.8 fL (78.0-98.0); Mean Platelet Volume 8.9 fL (7.4-10.4); Platelet Count 254 thou/uL (130-400); RBC Distribution Width 15.5 % (11.5-14.5); Red Blood Cell (RBC) Count 3.68 mill/uL (4.20-5.40); White Blood Cell (WBC) Count 10.7 thou/uL (4.8-10.8)
[2018-10-01 04:58] LABS: Anion Gap 11 mmol/L (10-20); BUN (Urea Nitrogen) 20 mg/dL (9.8-20.1); Calc. Creatinine Clearance 39 mL/min (70-130); Calcium 8.6 mg/dL (7.8-10.44); Carbon Dioxide 25 mmol/L (23-31); Chloride 103 mmol/L (98-107); Estimated GFR-MDRD 31; Glucose 154 mg/dL (83-110); Sodium 135 mmol/L (136-145)
[2018-10-01] MEDS: Lisinopril 10 MG TAB PO SCH (08:15)
[2018-10-01] MEDS: Furosemide 40 MG/4 ML VIAL SLOW IVP SCH (08:15)
[2018-10-01] MEDS: Amiodarone 200 MG TAB PO SCH ×2 (08:15→20:13)
[2018-10-01] MEDS: Fluconazole 100 MG TAB PO SCH (08:15)
[2018-10-01] MEDS: Potassium Chloride 20 MEQ TAB PO SCH (08:15)
[2018-10-01] MEDS: glipiZIDE 5 MG TAB PO SCH (08:15)
[2018-10-01] MEDS: Apixaban 2.5 MG TAB PO SCH ×2 (09:56→20:13)
--- NOTE | 2018-10-01 16:25 | PDOC.PN ---
- Subjective Encounter Start Date: 10/01/18 Encounter Start Time: 15:40 Doing ok. Leg looks better to her. - Objective Resuscitation Status - Order Detail: 09/29/18 21:45 Resuscitation Status Routine Resuscitation Status: FULL: Full Resuscitation Vital Signs & Weight: Vital Signs (12 hours) Temp Pulse Resp BP BP Pulse Ox 10/01/18 08:15 144/86 H 10/01/18 08:00 97.8 F 76 20 125/79 95 Weight Admit Weight 214 lb 14.4 oz Weight 214 lb 14.4 oz I&O: 09/30/18 10/01/18 10/02/18 06:59 06:59 06:59 Intake Total 100 100 320 Balance 100 100 320 Result Diagrams: 10/01/18 04:15 10/01/18 04:15 Additional Labs: Accuchecks 10/01/18 10/01/18 09/30/18 11:44 04:09 19:47 POC Glucose 187 H 151 H 201 H 09/30/18 17:37 POC Glucose 158 H Phys Exam - Physical Examination Constitutional: NAD Respiratory: no wheezing, no rales, no rhonchi Cardiovascular: RRR, no significant murmur Gastrointestinal: soft, non-tender, no distention, positive bowel sounds RLE with significant erythema circumferentially. Warm to touch Faint erythema. Psychiatric: normal affect, A&O x 3 Dx/Plan (1) Cellulitis Code(s): L03.90 - CELLULITIS, UNSPECIFIED Status: Acute Comment: Right LE (2) UTI (urinary tract infection) Status: Acute Comment: cont Rocephin for Providencia based on sensitivities (3) DM2 (diabetes mellitus, type 2) Status: Chronic Comment: add ISS w accuchecks. Cont PO meds glipizide (4) Hypertension Code(s): I10 - ESSENTIAL (PRIMARY) HYPERTENSION Status: Chronic (5) Hypothyroid Code(s): E03.9 - HYPOTHYROIDISM, UNSPECIFIED Status: Chronic Comment: cont levothyroxine. TSH slightly high but needs to checked again when acute illness is Over (6) Obesity (BMI 30-39.9) Code(s): E66.9 - OBESITY, UNSPECIFIED Status: Chronic - Plan * Still significant cellulitis. * Will make inpatient and continue IV Vanc for now. * UCx growing E coli. * Pansensitive.
[2018-10-01] MEDS: Vancomycin HCl 1 GM in Premix Bag 1 BAG IVPB SCH (17:58)
[2018-10-01 17:59] LABS: Vancomycin, Trough 15.8 ug/mL
[2018-10-01] MEDS: cefTRIAXone\\ROCEPHIN 1 GM in Sodium Chloride 0.9% 100 ML IVPB SCH (20:13)
[2018-10-02] MEDS: Levothyroxine Sodium 125 MCG TAB PO SCH (05:11)
[2018-10-02 06:50] LABS: #Basophils 0.1 thou/uL (0.0-0.2); #Eosinphils 0.2 thou/uL (0.0-0.7); #Monocytes 0.9 thou/uL (0.11-0.59); #Neutrophils 7.3 thou/uL (1.40-6.50); %Basophils 0.4 % (0.0-1.0); %Eosinophils 1.8 % (0.0-10.0); %Lymphocytes 26.4 % (21.0-51.0); %Monocytes 7.6 % (0.0-10.0); %Neutrophils 63.7 % (42.0-75.0); Hemoglobin 11.3 g/dL (12.0-16.0); Mean Corpuscular HGB CONC 31.7 g/dL (32.0-36.0); Mean Corpuscular Hemoglobin 27.4 pg (27.0-31.0); Mean Corpuscular Volume 86.4 fL (78.0-98.0); Mean Platelet Volume 9.1 fL (7.4-10.4); Platelet Count 296 thou/uL (130-400); RBC Distribution Width 15.8 % (11.5-14.5); Red Blood Cell (RBC) Count 4.14 mill/uL (4.20-5.40); White Blood Cell (WBC) Count 11.4 thou/uL (4.8-10.8)
[2018-10-02 07:12] LABS: Anion Gap 15 mmol/L (10-20); BUN (Urea Nitrogen) 17 mg/dL (9.8-20.1); Calc. Creatinine Clearance 42 mL/min (70-130); Calcium 8.7 mg/dL (7.8-10.44); Carbon Dioxide 24 mmol/L (23-31); Chloride 101 mmol/L (98-107); Estimated GFR-MDRD 33; Glucose 94 mg/dL (83-110); Sodium 136 mmol/L (136-145)
[2018-10-02 07:40] VITALS: BP 118/69; TEMP 98.2
[2018-10-02] MEDS: Potassium Chloride 20 MEQ TAB PO SCH (08:36)
[2018-10-02] MEDS: glipiZIDE 5 MG TAB PO SCH (08:37)
[2018-10-02] MEDS: Amiodarone 200 MG TAB PO SCH (08:37)
[2018-10-02] MEDS: Fluconazole 100 MG TAB PO SCH (08:37)
[2018-10-02] MEDS: Apixaban 2.5 MG TAB PO SCH (08:37)
[2018-10-02] MEDS: Furosemide 40 MG/4 ML VIAL SLOW IVP SCH (08:38)
[2018-10-02] MEDS: Lisinopril 10 MG TAB PO SCH (08:38)
--- NOTE | 2018-10-03 08:34 | DIS ---
DATE OF ADMISSION: 09/29/2018 DATE OF DISCHARGE: 10/02/2018 DISCHARGE DIAGNOSES: 1. Cellulitis of the right lower extremity. 2. Decompensated systolic congestive heart failure. 3. Diabetes mellitus. 4. History of deep venous thrombosis. 5. History of hypothyroidism. 6. History of hyperlipidemia. 7. History of coronary artery disease. 8. History of atrial fibrillation. 9. Urinary tract infection with Escherichia coli. HISTORY OF PRESENT ILLNESS: This patient is an 88-year-old female, who presented via the emergency department with concerns for lower extremity swelling. The patient has a history of deep venous thrombosis and is on Eliquis. She was noted to have lower extremity edema, but also significant dermatitis and inflammation of both lower extremities circumferentially. She had some weeping noticed from the right lower extremity as well in the anterior lateral calf area. The patient has a history of chronic stage 3 kidney disease with an eGFR typically running from the upper 30s to the mid 50s, most recent was 38 on September 22 and on admission, she was at 30, representing slight worsening. HOSPITAL COURSE: The patient was admitted to the hospital. She was given IV diuresis with significant improvement of her lower extremity edema. She was felt to have infectious cellulitis of the lower extremities with an initial white count of 11.0 and was started on IV vancomycin. She had daily improvement of the erythema of her lower extremities. The patient is unfortunately absent both hip joints and is nonambulatory and spends her entire day and night sitting in a recliner chair other than getting up to a bedside commode and has some persistent stasis of lower extremities and some chronic stasis dermatitis, although all of these appeared to be substantially improved. The patient remained afebrile throughout her stay. Her white count dipped down and then back up slightly at 11.4 on the day of discharge, which was felt to actually represent a likely normal response. Also of note, the patient had evidence of urinary tract infection on initial presentation, her urine grew E coli, which was fairly pansensitive. Once the patient was felt to have significant resolution of the edema from heart failure and inflammation from the cellulitis, she was felt to be stable for discharge to home. PHYSICAL EXAMINATION: VITAL SIGNS: On the day of discharge, temperature is 98.2, pulse 81, respirations 20, O2 saturation 97% on room air, and blood pressure 118/69. GENERAL: She is awake and alert. HEART: Regular without murmur. LUNGS: Clear. ABDOMEN: Benign. EXTREMITIES: Right lower extremity has vastly improved erythema from the prior day. She has 5 or 6 very small scabbed lesions that are about 5 mm in size from where she had some weeping that is now crusted. There is no more weeping and the edema is improved. There is still some persistent erythema on the posterior calf on the right as well as a small area of erythema on the anterior portion. The left lower extremity had some faint erythema on the prior day, which appears to be almost entirely resolved. DISPOSITION: The patient will be discharged to home. DISCHARGE MEDICATIONS: She will continue her usual home medications includin. Glucotrol 5 mg daily. 2. Potassium 20 mEq daily. 3. Levothyroxine 125 mcg p.o. daily. 4. Fluconazole 100 mg daily. 5. Eliquis 5 mg b.i.d. 6. Amiodarone 200 mg b.i.d. 7. Praluent 75 mg subcu as directed. 8. Lisinopril 10 mg daily. 9. She will have a new prescription for her usual home medication of Lasix 20 mg p.o. q.a.m. 10. She will have new prescription for Florastor 250 mg p.o. daily and Augmentin 875/125 one p.o. b.i.d., which should be adequate to cover both the cellulitis and the urinary tract infection. DIET: She is to have a diabetic diet. ACTIVITY: As tolerated. FOLLOWUP: She is to follow up with her primary care provider, who is in transition at the moment. She is to follow up with Dr. Hunt. Apparently, Dr. Hunt saw her last evening as well and told her that she could pursue her followup appointment that she had planned for tomorrow back until October. She can return to the hospital should she have any problems prior to the time of her followup appointment. TIME SPENT: Time spent in discharge activities including [id number] time with the patient was 30 minutes. Job ID: [id number]
[2018-10-14] MEDS ORDERED: Amiodarone 200 MG TAB PO SCH (21:00)
== END 2018-10-02 11:05 | disposition home or self-care (01) | DRG 602 ==
LOC: ERS 13:08 → OBSVTOIN 18:40 → T4-A 18:40
PROVIDERS: ADMIT Internal Medicine; ATTEND Internal Medicine
DX: L03.115 Cellulitis of right lower limb (principal); I50.23 Acute on chronic systolic (congestive) heart failure; I13.0 Hypertensive heart and chronic kidney disease with heart failure and stage 1 through stage 4 chronic kidney disease, or unspecified chronic kidney disease; N39.0 Urinary tract infection, site not specified; I25.110 Atherosclerotic heart disease of native coronary artery with unstable angina pectoris; E03.9 Hypothyroidism, unspecified; E78.5 Hyperlipidemia, unspecified; I25.10 Atherosclerotic heart disease of native coronary artery without angina pectoris; I48.91 Unspecified atrial fibrillation; B96.20 Unspecified Escherichia coli [E. coli] as the cause of diseases classified elsewhere; N18.3 Chronic kidney disease, stage 3 (moderate); E11.22 Type 2 diabetes mellitus with diabetic chronic kidney disease; E11.65 Type 2 diabetes mellitus with hyperglycemia; E66.9 Obesity, unspecified; Z86.718 Personal history of other venous thrombosis and embolism; Z79.01 Long term (current) use of anticoagulants; Z68.38 Body mass index [BMI] 38.0-38.9, adult; Z90.710 Acquired absence of both cervix and uterus; Z88.5 Allergy status to narcotic agent; Z88.8 Allergy status to other drugs, medicaments and biological substances; Z79.899 Other long term (current) drug therapy
CPT/HCPCS: 36415; 36416; 71045; 80048; 80053; 80202; 81003; 81015; 83605; 83880; 84484; 85025; 87040; 87077; 87086; 87186; 93005; 93970; 96365; 96366; 96375; J0696; J1650; J1940; J3370; J3490; J7050

== ENCOUNTER 2018-11-22 09:50 | Emergency (ER) | payer MEDICARE ==
[2018-11-22 10:47] LABS: #Eosinphils 0.1 thou/uL (0.0-0.7); #Lymphocytes 1.8 thou/uL (1.20-3.40); #Monocytes 0.7 thou/uL (0.11-0.59); %Basophils 0.3 % (0.0-1.0); %Eosinophils 1.3 % (0.0-10.0); %Lymphocytes 17.2 % (21.0-51.0); %Monocytes 6.4 % (0.0-10.0); %Neutrophils 74.7 % (42.0-75.0); Hemoglobin 9.6 g/dL (12.0-16.0); Mean Corpuscular HGB CONC 31.8 g/dL (32.0-36.0); Mean Corpuscular Hemoglobin 26.4 pg (27.0-31.0); Mean Corpuscular Volume 83.1 fL (78.0-98.0); Mean Platelet Volume 8.2 fL (7.4-10.4); Platelet Count 333 thou/uL (130-400); RBC Distribution Width 14.8 % (11.5-14.5); Red Blood Cell (RBC) Count 3.63 mill/uL (4.20-5.40); White Blood Cell (WBC) Count 10.7 thou/uL (4.8-10.8)
[2018-11-22 11:10] LABS: ALT (SGPT) 11 U/L (8-55); AST (SGOT) 17 U/L (5-34); Albumin 3.4 g/dL (3.4-4.8); Alkaline Phosphatase 131 U/L (40-150); Anion Gap 12 mmol/L (10-20); BUN (Urea Nitrogen) 23 mg/dL (9.8-20.1); Bilirubin, Total 0.5 mg/dL (0.2-1.2); Calc. Creatinine Clearance 0 mL/min (70-130); Calcium 8.7 mg/dL (7.8-10.44); Carbon Dioxide 20 mmol/L (23-31); Chloride 109 mmol/L (98-107); Estimated GFR-MDRD 29; Globulin 3.7 g/dL (2.4-3.5); Glucose 215 mg/dL (83-110); Potassium 4.4 mmol/L (3.5-5.1); Protein, Total 7.1 g/dL (6.0-8.3); Sodium 137 mmol/L (136-145)
== END 2018-11-22 12:20 | disposition home or self-care (01) ==
LOC: ERS 09:50
DX: I87.8 Other specified disorders of veins (principal); L97.419 Non-pressure chronic ulcer of right heel and midfoot with unspecified severity; I25.10 Atherosclerotic heart disease of native coronary artery without angina pectoris; I25.2 Old myocardial infarction; E11.9 Type 2 diabetes mellitus without complications; E03.9 Hypothyroidism, unspecified; E78.5 Hyperlipidemia, unspecified; E78.00 Pure hypercholesterolemia, unspecified; Z79.899 Other long term (current) drug therapy; Z79.84 Long term (current) use of oral hypoglycemic drugs; Z95.5 Presence of coronary angioplasty implant and graft; Z79.01 Long term (current) use of anticoagulants
CPT/HCPCS: 36415; 80053; 85025; 99283

== ENCOUNTER 2018-11-28 12:38 | Observation (INO) | payer MEDICARE ==
[2018-11-28 13:22] LABS: #Eosinphils 0.1 thou/uL (0.0-0.7); #Lymphocytes 1.7 thou/uL (1.20-3.40); #Monocytes 0.8 thou/uL (0.11-0.59); #Neutrophils 8.8 thou/uL (1.40-6.50); %Basophils 0.4 % (0.0-1.0); %Eosinophils 1.1 % (0.0-10.0); %Monocytes 6.8 % (0.0-10.0); %Neutrophils 76.7 % (42.0-75.0); Hemoglobin 9.7 g/dL (12.0-16.0); Mean Corpuscular HGB CONC 31.4 g/dL (32.0-36.0); Mean Corpuscular Hemoglobin 25.4 pg (27.0-31.0); Mean Corpuscular Volume 80.9 fL (78.0-98.0); Mean Platelet Volume 8.1 fL (7.4-10.4); Platelet Count 350 thou/uL (130-400); RBC Distribution Width 15.3 % (11.5-14.5); Red Blood Cell (RBC) Count 3.83 mill/uL (4.20-5.40); White Blood Cell (WBC) Count 11.5 thou/uL (4.8-10.8)
[2018-11-28 13:44] LABS: ALT (SGPT) 16 U/L (8-55); AST (SGOT) 21 U/L (5-34); Albumin 3.4 g/dL (3.4-4.8); Alkaline Phosphatase 137 U/L (40-150); Anion Gap 12 mmol/L (10-20); BUN (Urea Nitrogen) 31 mg/dL (9.8-20.1); Bilirubin, Total 0.6 mg/dL (0.2-1.2); Calc. Creatinine Clearance 0 mL/min (70-130); Calcium 8.7 mg/dL (7.8-10.44); Carbon Dioxide 21 mmol/L (23-31); Chloride 108 mmol/L (98-107); Estimated GFR-MDRD 29; Globulin 3.5 g/dL (2.4-3.5); Glucose 165 mg/dL (83-110); Potassium 3.9 mmol/L (3.5-5.1); Protein, Total 6.9 g/dL (6.0-8.3); Sodium 137 mmol/L (136-145)
--- NOTE | 2018-11-28 13:59 | RAD ---
PORTABLE CHEST 1 VIEW: DATE: 11/28/2018. TIME: 1:17 p.m. HISTORY: Bilateral lower extremity edema. FINDINGS: Comparison is made with the exam of 09/29/2018. The heart size is borderline. The aorta is tortuous. There is mild pulmonary vascular congestion. No lobar consolidation, pneumothoraces, or large effusions are seen. POS: [facility]
[2018-11-28] MEDS ORDERED: Furosemide 100 MG/10 ML VIAL ONE (15:21)
[2018-11-28] MEDS ORDERED: Furosemide 40 MG/4 ML VIAL ONE (15:26)
[2018-11-28 17:40] LABS: Troponin I 0.015 ng/mL (< 0.028)
[2018-11-28] MEDS ORDERED: Acetaminophen 650 MG Suppository PR PRN (19:59)
[2018-11-28] MEDS ORDERED: Acetaminophen 325 MG TAB PO PRN (19:59)
[2018-11-28] MEDS ORDERED: HumaLOG 300 UNITS/3 ML VIAL SC PRN ×2 (20:01)
[2018-11-28] MEDS ORDERED: Dextrose 50% Abboject 50 ML SYRINGE SLOW IVP PRN (20:01)
[2018-11-28] MEDS ORDERED: Dextrose 5% in Water 1,000 ML IV PRN (20:01)
[2018-11-28 20:43] LABS: Troponin I Less than 0.010 ng/mL (< 0.028)
[2018-11-28 20:58] LABS: Lactic Acid 1.6 mmol/L (0.5-2.2)
[2018-11-28] MEDS ORDERED: Apixaban 5 MG TAB PO SCH (21:00)
--- NOTE | 2018-11-28 21:22 | HP ---
PRIMARY CARE PHYSICIAN: None. REASON FOR ADMISSION: Atrial fibrillation, in need of cardioversion. HISTORY OF PRESENT STAY: Ms. Rivas is a pleasant 88-year-old woman, with a history of atrial fibrillation, who has undergone cardioversion in the past. She states she was seen by Dr. Hunt today for routine followup and was noted to be in atrial fibrillation. Also complaining of bilateral lower extremity edema with weeping and per ED note, shortness of breath for 2 days. Apparently, Dr. Hunt recommended cardioversion to be done tomorrow morning. She is on Eliquis. Referred to the emergency department for admission for continued observation until the procedure tomorrow. The patient was seen in the emergency department, where she was given a dose of Lasix 80 mg IV x1. A chest x-ray was done showing borderline heart size with a tortuous aorta and mild pulmonary vascular congestion. No lobar consolidation, pneumothoraces, or large effusions seen. Imaging was compared to prior chest x-ray done in September 2018. She also had an EKG done in the emergency department, which showed atrial fibrillation with controlled ventricular response, heart rate of 85, no ectopics. Complete left bundle-branch block noted. Normal ST segments and T-waves normal as well. Laboratory studies have been completed including a BNP which was 331.2. She has also had troponins done negative x2. Renal function is elevated, but stable as compared to her baseline. She has a creatinine of 1.66 and a GFR of 29. LFTs unremarkable. White blood count slightly elevated at 11.5. She appears to have chronic anemia with a hemoglobin of 9.7, which is stable. At this present time, the patient is found eating her dinner, sitting in bed comfortably. She denies any complaints. She does report some discomfort in her hips whenever she is moved. Reports having some discomfort in her right heel associated with a pressure ulcer and daughter is requesting wound care. The patient states 3 days ago is when she noted increasing lower extremity edema and slight weeping. There is some slight erythema, which she states is chronic and she has not had any warmth to the skin. No associated fevers, chills, or sweats. Also denies any urinary symptoms. No nausea or vomiting. No abdominal pain. No chest pain or shortness of breath. All other review of systems are negative. PAST MEDICAL HISTORY: 1. Bilateral lower extremity edema, chronic. 2. History of cellulitis to the lower extremities. 3. Systolic congestive heart failure. 4. Diabetes mellitus. 5. History of DVT. 6. History of hypothyroidism. 7. History of hyperlipidemia. 8. Coronary artery disease. 9. Atrial fibrillation, previous cardioversion. 10. History of UTIs. 11. Chronic stasis dermatitis. 12. Coronary artery disease. 13. Previous TIA. PAST SURGICAL HISTORY: 1. Cardiac stents x3. 2. Hysterectomy. 3. Cataract surgery. SOCIAL HISTORY: The patient lives at home with family. No tobacco use and no alcohol use. No drug use. FAMILY HISTORY: Positive for coronary artery disease and diabetes in her mother. ALLERGIES: 1. CODEINE. 2. DOXYCYCLINE. 3. . 4. MORPHINE. 5. PREDNISONE. CURRENT MEDICATIONS: 1. Lasix. 2. Eliquis. 3. Glipizide. 4. Amiodarone. 5. Lisinopril. 6. Levothyroxine. 7. . PHYSICAL EXAMINATION: GENERAL: The patient appears well developed, well nourished, and is in no acute distress. VITAL SIGNS: Temperature 97.8, pulse 78, blood pressure 158/90, respirations 20, and O2 saturation 97% on room air. HEENT: Normocephalic and atraumatic. Pupils are equal, round, and reactive to light. Sclerae are without icterus. Oropharynx is clear. NECK: Supple. LUNGS: Clear to auscultation bilaterally. CARDIAC: Regular rate and rhythm. ABDOMEN: Soft, nontender, and nondistended. Normoactive bowel sounds present. EXTREMITIES: Notable for +1 pitting edema extending from her ankles right above her knees. No weeping apparent at present. She has some slight erythema involving both lower legs up to below the knee, which is due to chronic stasis dermatitis. Sore present to right posterior heel. No bleeding or sign of an infection, very small superficial wound. NEUROLOGIC: Alert and oriented x3. IMPRESSION AND PLAN: Ms. Rivas is a pleasant 88-year-old woman, who has been referred by Dr. Hunt due to bilateral lower extremity edema with shortness of breath x3 days and rate controlled atrial fibrillation with plans to perform cardioversion tomorrow morning. We will manage the following; 1. Atrial fibrillation, rate controlled. We will continue with Eliquis for cardioversion tomorrow morning as per Dr. Hunt. Family state it is scheduled for 8:00 a.m. The patient to be kept n.p.o. after midnight. 2. Shortness of breath. The patient states she is not short of breath at this present time. She did receive 80 mg of Lasix in the emergency department. There was mild pulmonary vascular congestion on the chest x-ray, but no evidence of fluid overload, though she does have bilateral lower extremity edema. We will continue to monitor. 3. Leukocytosis. White blood count slightly elevated. The patient without any clinical signs of infection. She does have erythema of the bilateral lower extremities due to chronic stasis dermatitis. We will add on a procalcitonin and prolactin. We will obtain urinalysis. 4. Right heel sore. Consult placed to Wound Care. 5. Diabetes mellitus. We will hold Glucotrol. We will initiate insulin sliding scale. Monitor blood glucose. 6. Hypertension. Resume home medications. Monitor blood pressure. 7. Gastrointestinal prophylaxis. 8. Deep venous thrombosis prophylaxis. The patient is on anticoagulation with Eliquis. No mechanical SCDs given the lower extremity edema. 9. Code status full. Her surrogate decision maker is her daughter, Lauren Rivas. The patient's case was discussed with Dr. Mariscal, who agrees with plan of care as described above. Job ID: [id number]
[2018-11-29 05:25] LABS: INR-International Normal Ratio 2.2; PTT 36.9 SEC (22.9-36.1); Prothrombin Time 24.1 SEC (12.0-14.7)
[2018-11-29 05:26] LABS: #Basophils 0.1 thou/uL (0.0-0.2); #Eosinphils 0.2 thou/uL (0.0-0.7); #Lymphocytes 2.1 thou/uL (1.20-3.40); #Monocytes 0.8 thou/uL (0.11-0.59); #Neutrophils 6.1 thou/uL (1.40-6.50); %Basophils 0.6 % (0.0-1.0); %Eosinophils 2.1 % (0.0-10.0); %Lymphocytes 22.5 % (21.0-51.0); %Monocytes 8.7 % (0.0-10.0); Mean Corpuscular HGB CONC 32.2 g/dL (32.0-36.0); Mean Corpuscular Hemoglobin 26.1 pg (27.0-31.0); Mean Corpuscular Volume 81.2 fL (78.0-98.0); Mean Platelet Volume 8.4 fL (7.4-10.4); Platelet Count 313 thou/uL (130-400); RBC Distribution Width 15.1 % (11.5-14.5); Red Blood Cell (RBC) Count 3.45 mill/uL (4.20-5.40); White Blood Cell (WBC) Count 9.3 thou/uL (4.8-10.8)
[2018-11-29] MEDS: Levothyroxine Sodium 125 MCG TAB PO SCH (05:35)
[2018-11-29 05:47] LABS: Anion Gap 13 mmol/L (10-20); BUN (Urea Nitrogen) 30 mg/dL (9.8-20.1); Calc. Creatinine Clearance 38 mL/min (70-130); Calcium 8.4 mg/dL (7.8-10.44); Carbon Dioxide 21 mmol/L (23-31); Chloride 107 mmol/L (98-107); Estimated GFR-MDRD 30; Glucose 99 mg/dL (83-110); Potassium 3.8 mmol/L (3.5-5.1); Sodium 137 mmol/L (136-145)
[2018-11-29] MEDS ORDERED: Apixaban 5 MG TAB PO SCH (08:53)
[2018-11-29] MEDS: Lisinopril 5 MG TAB PO SCH (08:58)
[2018-11-29] MEDS: Amiodarone 200 MG TAB PO SCH (08:58)
[2018-11-29] MEDS ORDERED: Furosemide 20 MG TAB PO SCH (09:00)
[2018-11-29] MEDS: Apixaban 2.5 MG TAB PO SCH ×2 (09:00→21:47)
[2018-11-29] MEDS ORDERED: PROPOFOL 20 ML ONE (09:57)
[2018-11-29] MEDS ORDERED: PROPOFOL 200 MG/20 ML VIAL ONE (11:38)
[2018-11-29 11:58] LABS: Hemoglobin 9.4 g/dL (12.0-16.0); Platelet Count 330 thou/uL (130-400)
[2018-11-29 12:45] VITALS: BMI 35.4
--- NOTE | 2018-11-29 13:39 | PDOC.HOSPP ---
- Subjective Encounter Date: 11/29/18 Encounter Time: 13:37 Subjective: 88 y/o female with DM, chronic CHF, atrial Fib s/p cardioversion admitted due to worsening leg swelling with drainage and redness as well as atrial fib. S/p LINN cardioversion earlier today. Recently was started on antibiotics for bilateral leg cellulitis but she discontinued antibiotics due to medication induced dizziness. Denied fever. - Objective Vital Signs & Weight: Vital Signs (12 hours) Temp Pulse Resp BP BP Pulse Ox 11/29/18 11:20 97.2 F L 72 16 122/59 L 99 11/29/18 08:58 76 112/55 L 11/29/18 07:59 98.0 F 76 16 112/55 L 98 11/29/18 04:00 99.2 F 80 16 129/64 98 Weight Admit Weight 223 lb 12.8 oz Weight 212 lb 14.4 oz I&O: 11/28/18 11/29/18 11/30/18 06:59 06:59 06:59 Intake Total 400 Output Total 1500 Balance -1100 Result Diagrams: 11/29/18 11:42 11/29/18 11:42 Additional Labs: Accuchecks 11/29/18 11/29/18 11/28/18 11:31 05:38 20:46 POC Glucose 117 H 104 160 H Hospitalist ROS - Medication Medications: Active Medications Generic Name Dose Route Start Last Admin Trade Name Freq PRN Reason Stop Dose Admin Amiodarone HCl 200 mg 11/29/18 09:00 11/29/18 08:58 Cordarone PO 200 mg DAILY DEVAN Administration Levothyroxine Sodium 125 mcg 11/29/18 06:00 11/29/18 05:35 Synthroid PO 125 mcg 0600 DEVAN Administration Lisinopril 10 mg 11/29/18 09:00 11/29/18 08:58 Zestril PO 10 mg DAILY DEVAN Administration Sodium Chloride 10 ml 11/28/18 19:59 11/29/18 08:59 Flush - Normal Saline IVF 10 ml Q12HR PRN Administration Saline Flush - Exam General Appearance: awake alert General - other findings: obese Eye: anicteric sclera ENT: normocephalic atraumatic, moist mucosa Neck: supple Heart: RRR Respiratory: no wheezes, no ronchi Respiratory - other findings: fair air movement with some transmitted sound +/- crackles Gastrointestinal: soft, non-tender, non-distended, normal bowel sounds Gastrointestinal - other findings: obese Extremeties - other findings: moderate bilateal leg edema with bilateral erythema L>R + tenderness Neurological: CN's grossly intact Psychiatric: A&O x 3 Hosp A/P (1) Acute on chronic systolic CHF (congestive heart failure) Code(s): I50.23 - ACUTE ON CHRONIC SYSTOLIC (CONGESTIVE) HEART FAILURE Status : Acute (2) Atrial fibrillation Code(s): I48.91 - UNSPECIFIED ATRIAL FIBRILLATION Status: Acute Qualifiers: Atrial fibrillation type: paroxysmal Qualified Code(s): I48.0 - Paroxysmal atrial fibrillation (3) Physical debility Code(s): R53.81 - OTHER [place] Status: Acute (4) Cellulitis Code(s): L03.90 - CELLULITIS, UNSPECIFIED Status: Acute (5) CAD (coronary artery disease) Code(s): I25.10 - ATHSCL HEART DISEASE OF [place] CORONARY ARTERY W/O ANG PCTRS Status: Chronic (6) Chronic anticoagulation Code(s): Z79.01 - SNF (CURRENT) USE OF ANTICOAGULANTS Status: Chronic (7) Hypertension Code(s): I10 - ESSENTIAL (PRIMARY) HYPERTENSION Status: Chronic (8) Hypothyroid Code(s): E03.9 - HYPOTHYROIDISM, UNSPECIFIED Status: Chronic (9) Obesity (BMI 30-39.9) Code(s): E66.9 - OBESITY, UNSPECIFIED Status: Chronic (10) CKD (chronic kidney disease) stage 3, GFR 30-59 ml/min Code(s): N18.3 - CHRONIC KIDNEY DISEASE, STAGE 3 (MODERATE) Status: Acute (11) DM2 (diabetes mellitus, type 2) Status: Chronic - Plan Increase lasix to 20 bid. Start augmentin for cellulitis. Continue other treatments Repeat renal function in the am.
[2018-11-29] MEDS ORDERED: Amoxicillin/Potassium Clav 500 MG TAB PO SCH (13:45)
[2018-11-29] MEDS: Furosemide 20 MG TAB PO SCH (15:01)
--- NOTE | 2018-11-29 16:04 | CON ---
DATE OF CONSULTATION: PROCEDURE PERFORMED: Electrocardioversion. INDICATION: An 88-year-old woman with paroxysmal atrial fibrillation. DESCRIPTION OF PROCEDURE: The patient was taken to the PACU. The patient was sedated by Anesthesiology. The patient was shocked with 200 joules of synchronized electricity. The patient converted to normal sinus rhythm. IMPRESSION: Successful electrocardioversion. Job ID: [id number]
[2018-11-29] MEDS: Amoxicillin/Potassium Clav 500 MG TAB PO SCH (21:48)
--- NOTE | 2018-11-29 23:51 | CON ---
DATE OF CONSULTATION: HISTORY OF PRESENT ILLNESS: The patient is an unfortunate 88-year-old woman who presents for evaluation of dyspnea. The patient has a previous history of coronary artery disease and underwent PTCA and stent placement in 2003. She also has had a previous cerebrovascular accident. The patient also has a history of aortic stenosis. The patient has been recently started on amiodarone for paroxysmal atrial fibrillation. She presented with increasing lower extremity swelling and dyspnea. PAST MEDICAL HISTORY: 1. Coronary artery disease. 2. CVA. 3. DVT. 4. Diabetes mellitus. 5. Hypertension. 6. Dyslipidemia. 7. Aortic stenosis. PAST SURGICAL HISTORY: Cataract surgery. MEDICATIONS: See nursing list. ALLERGIES: CODEINE AND MORPHINE. SOCIAL HISTORY: Nonsmoker. FAMILY HISTORY: Positive family history of heart disease. REVIEW OF SYSTEMS: Noticeable for increasing weakness, 10-point system otherwise unremarkable. PHYSICAL EXAMINATION: GENERAL: Obese woman, in mild distress. VITAL SIGNS: Blood pressure of 122/59. NECK: Full. LUNGS: Clear to auscultation. HEART: Regular rate and rhythm. Normal S1, S2, 2/6 systolic murmur. ABDOMEN: Distended. EXTREMITIES: Show evidence of 2+ edema with erythema. LABORATORY RESULTS: Her sodium is 137, potassium 3.8, chloride 107, bicarbonate 21, BUN 30, creatinine 1.6, glucose is 99. Her EKG revealed atrial fibrillation with a left bundle-branch block. IMPRESSION: 1. Paroxysmal atrial fibrillation. 2. Aortic stenosis. 3. Cardiomyopathy. 4. Congestive heart failure. 5. Severe mitral regurgitation. 6. Dyslipidemia. 7. Chronic renal insufficiency. 8. Diabetes mellitus. 9. Dyslipidemia. 10. Cellulitis. This patient presents with congestive heart failure and atrial fibrillation. She has moderate to severe aortic stenosis. From a cardiac standpoint, she will undergo repeat electrocardioversion. The patient needs to be considered for a TAVR procedure. We will follow this patient with you through her hospitalization. Job ID: [id number] MTDD
[2018-11-30] MEDS: Levothyroxine Sodium 125 MCG TAB PO SCH (05:39)
[2018-11-30 06:40] LABS: Anion Gap 14 mmol/L (10-20); BUN (Urea Nitrogen) 31 mg/dL (9.8-20.1); Calc. Creatinine Clearance 36 mL/min (70-130); Calcium 8.4 mg/dL (7.8-10.44); Carbon Dioxide 21 mmol/L (23-31); Chloride 106 mmol/L (98-107); Estimated GFR-MDRD 28; Glucose 125 mg/dL (83-110); Iron 15 ug/dL (50-170); Iron Binding Capacity, Total 294 mcg/dL (265-497); Magnesium 1.9 mg/dL (1.6-2.6); Potassium 3.9 mmol/L (3.5-5.1); Sodium 137 mmol/L (136-145)
[2018-11-30] MEDS: Amoxicillin/Potassium Clav 500 MG TAB PO SCH (08:39)
[2018-11-30] MEDS: Lisinopril 5 MG TAB PO SCH (08:39)
[2018-11-30] MEDS: Furosemide 20 MG TAB PO SCH (08:39)
[2018-11-30] MEDS: Apixaban 2.5 MG TAB PO SCH (08:39)
[2018-11-30] MEDS: Amiodarone 200 MG TAB PO SCH (08:39)
[2018-11-30] MEDS ORDERED: Iron Sucrose Complex 200 MG in Sodium Chloride 0.9% 250 ML 250 ML IVPB SCH (09:30)
--- NOTE | 2018-11-30 10:01 | PDOC.EVN ---
Event Note - Event Note Event Note: Feeling better. Wants to go home. Discharged home. Offered home health RN/PT but patient and babakter declined. Discussed SNF. This also was declined. Discharge summary discharged. #[id number]
--- NOTE | 2018-11-30 10:33 | DIS ---
DATE OF ADMISSION: 11/28/2018 DATE OF DISCHARGE: 11/30/2018 DISCHARGE DIAGNOSES: 1. Acute on chronic combined systolic and diastolic heart failure. 2. Bilateral lower extremity cellulitis. 3. Severe aortic stenosis. 4. Moderate mitral regurgitation. 5. Paroxysmal atrial fibrillation. 6. Status post transesophageal echocardiogram cardioversion. 7. Chronic physical debilitation. 8. Coronary artery disease. 9. Type 2 diabetes mellitus. 10. Chronic anticoagulation with Eliquis. 11. Hypertension. 12. Hypothyroidism. 13. Morbid obesity. 14. Chronic kidney disease stage 3. 15. 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 CONSULT: Cardiology. PROCEDURE PERFORMED: Transesophageal echocardiogram cardioversion. HOSPITAL COURSE: An 88-year-old female with known history of diabetes, chronic CHF, and atrial fibrillation status post prior cardioversion on chronic anticoagulation with Eliquis, admitted due to worsening bilateral leg swelling with drainage and redness. The patient also was found to be in atrial fibrillation. She was admitted to the hospital and started on diuretics as well as antibiotics. Cardiology consult was obtained and she subsequently had LINN cardioversion. The patient has been on chronic anticoagulation with Eliquis. The patient also received wound care for bilateral chronic venous ulcers with improvement. Redness and swelling also improved with diuretics and antibiotics and the patient was subsequently discharged home. She was also found to have severe aortic stenosis and Cardiology thinks the patient would benefit from TAVR. However, the patient currently having acute infection (cellulitis), hence Cardiology is of the view, the patient will be sent to [place] for TAVR in 2 to 3 weeks when the acute infection would have subsided. PHYSICAL EXAMINATION: VITAL SIGNS: Temperature 97.9, pulse 78, respiratory rate 26, SpO2 of 97 on room air, and blood pressure is 131/64. GENERAL: Obese female, in no obvious distress. Afebrile. Anicteric. HEENT: Normocephalic and atraumatic. Oral mucosa is moist. CARDIOVASCULAR: Regular rhythm and rate with normal heart sounds. Systolic murmur noted. RESPIRATORY: Fair air entry bilaterally with few bibasilar crackles posteriorly. Work of breathing is mildly increased and the patient is mildly tachypneic. GI: Obese, soft, nontender, and nondistended with normal bowel sounds. EXTREMITIES: Regressing bilateral leg edema and erythema noted. CLAIMS ADJUDICATOR: Conscious and alert and oriented x3 with appropriate mental status. Cranial nerves 2 through 12 are grossly intact. DISCHARGE DISPOSITION: Home. DISCHARGE CONDITION: Improved. DISCHARGE MEDICATIONS: 1. Amiodarone 200 mg p.o. daily. 2. Glipizide 5 mg p.o. daily. 3. Levothyroxine 125 mcg p.o. daily. 4. Lisinopril 10 mg p.o. daily. 5. Augmentin 500 mg b.i.d. for 10 days. 6. Eliquis 2.5 mg p.o. b.i.d. 7. Ferrous gluconate 324 mg p.o. b.i.d. 8. Lasix 40 mg p.o. daily. 9. Florastor 250 mg p.o. daily for 14 days. FOLLOWUP: The patient is to follow with PCP in 1 week. She is to follow with flight operation coordinator in 10 days. Discharge took more than 30 minutes. Job ID: [id number]
--- NOTE | 2018-11-30 10:42 | OP ---
DATE OF PROCEDURE: 11/29/2018 PROCEDURE PERFORMED: Transesophageal echocardiogram. INDICATIONS: An 88-year-old woman with paroxysmal atrial fibrillation and aortic stenosis. DESCRIPTION OF PROCEDURE: The patient was taken to the PACU. The patient was sedated by Anesthesiology. A transesophageal probe was placed into the distal esophagus and stomach. Echocardiographic images were obtained. The transesophageal probe was removed. FINDINGS: 1. Moderate decreased left ventricular systolic function. 2. Left ventricle is mildly dilated. 3. Left atrial enlargement. 4. The aortic valve leaflets are thickened, reduced leaflet excursion. 5. Gnutahmw-ut-cpltnm aortic stenosis. 6. Severe mitral regurgitation. 7. Moderate tricuspid regurgitation. 8. No thrombus in left atrium or left atrial appendage. 9. Atherosclerotic debris in the descending aorta. IMPRESSION: No thrombus noted in the left atrium or left atrial appendage with [id number] aortic stenosis and severe mitral regurgitation. Job ID: [id number]
[2018-11-30 11:14] VITALS: BP 130/67; TEMP 97.5
--- NOTE | 2018-12-03 01:28 | EKG ---
Test Reason : Blood Pressure : / mmHG Vent. Rate : 085 BPM Atrial Rate : 067 BPM P-R Int : 000 ms QRS Dur : 152 ms QT Int : 434 ms P-R-T Axes : 000 049 160 degrees QTc Int : 516 ms Atrial fibrillation Left bundle branch block Abnormal ECG Confirmed by DEVIN NARAYAN ([id number]), rewrite editor HAL JOHNSON ([id number]) on 12/03/2018 1:27:12 AM Referred By: Confirmed By:DEVIN NARAYAN
== END 2018-11-30 13:20 | disposition home or self-care (01) ==
LOC: ERS 12:38 → 2NO 16:35
PROVIDERS: ADMIT Internal Medicine; ATTEND Internal Medicine
PROC: B24BZZ4 Ultrasonography of Heart with Aorta, Transesophageal (ICD-10-PCS; principal; 2018-11-28)
DX: I48.0 Paroxysmal atrial fibrillation (principal); I35.0 Nonrheumatic aortic (valve) stenosis; I13.0 Hypertensive heart and chronic kidney disease with heart failure and stage 1 through stage 4 chronic kidney disease, or unspecified chronic kidney disease; E11.22 Type 2 diabetes mellitus with diabetic chronic kidney disease; N18.3 Chronic kidney disease, stage 3 (moderate); I50.43 Acute on chronic combined systolic (congestive) and diastolic (congestive) heart failure; E11.622 Type 2 diabetes mellitus with other skin ulcer; L97.901 Non-pressure chronic ulcer of unspecified part of unspecified lower leg limited to breakdown of skin; I25.10 Atherosclerotic heart disease of native coronary artery without angina pectoris; D72.829 Elevated white blood cell count, unspecified; E03.9 Hypothyroidism, unspecified; E66.01 Morbid (severe) obesity due to excess calories; I87.2 Venous insufficiency (chronic) (peripheral); Z68.35 Body mass index [BMI] 35.0-35.9, adult; Z79.01 Long term (current) use of anticoagulants; Z79.84 Long term (current) use of oral hypoglycemic drugs; Z79.899 Other long term (current) drug therapy; Z86.73 Personal history of transient ischemic attack (TIA), and cerebral infarction without residual deficits; Z88.1 Allergy status to other antibiotic agents; Z88.5 Allergy status to narcotic agent; Z95.5 Presence of coronary angioplasty implant and graft
CPT/HCPCS: 71045; 80048 ×2; 80053; 82565; 82728; 82962 ×3; 83540; 83550; 83605; 83735 ×2; 83880; 84145; 84484 ×2; 85014; 85018; 85025 ×2; 85049; 85610; 85730; 92960; 93005; 93312; 96374; 97139 ×2; 99284; G0378 ×4; 36415; 36416; J1756; J1940; J2704; J7050

== ENCOUNTER 2019-01-08 14:25 | Inpatient (IN) | payer MEDICARE ==
[2019-01-08 15:07] LABS: #Eosinphils 0.1 thou/uL (0.0-0.7); #Lymphocytes 1.5 thou/uL (1.20-3.40); #Neutrophils 11.4 thou/uL (1.40-6.50); %Basophils 0.4 % (0.0-1.0); %Eosinophils 0.7 % (0.0-10.0); %Lymphocytes 10.6 % (21.0-51.0); %Monocytes 6.9 % (0.0-10.0); %Neutrophils 81.4 % (42.0-75.0); Hemoglobin 8.1 g/dL (12.0-16.0); Mean Corpuscular HGB CONC 32.8 g/dL (32.0-36.0); Mean Corpuscular Hemoglobin 26.5 pg (27.0-31.0); Mean Corpuscular Volume 80.8 fL (78.0-98.0); Mean Platelet Volume 7.7 fL (7.4-10.4); Platelet Count 372 thou/uL (130-400); RBC Distribution Width 16.7 % (11.5-14.5); Red Blood Cell (RBC) Count 3.04 mill/uL (4.20-5.40)
--- NOTE | 2019-01-08 15:11 | RAD ---
Portable frontal chest radiograph: 01/08/2019 COMPARISON: 11/28/2018 HISTORY: Shortness of breath, dyspnea FINDINGS: Mild pulmonary vascular congestion noted. No pneumothorax or pleural fluid. No focal consol idation or alveolar edema. Stable bilateral shoulder degenerative change. Heart and mediastinal contours are stable. There is atherosclerotic calcification of the aortic arch. Pression: Mild pulmonary vascular congestion.
[2019-01-08 15:32] LABS: ALT (SGPT) 10 U/L (8-55); AST (SGOT) 15 U/L (5-34); Alkaline Phosphatase 116 U/L (40-110); Anion Gap 14 mmol/L (10-20); BUN (Urea Nitrogen) 21 mg/dL (9.8-20.1); Bilirubin, Total 0.5 mg/dL (0.2-1.2); Calc. Creatinine Clearance 0 mL/min (70-130); Calcium 8.1 mg/dL (7.8-10.44); Carbon Dioxide 18 mmol/L (23-31); Chloride 108 mmol/L (98-107); Estimated GFR-MDRD 35; Globulin 3.2 g/dL (2.4-3.5); Glucose 211 mg/dL (83-110); Potassium 4.1 mmol/L (3.5-5.1); Protein, Total 6.2 g/dL (6.0-8.3); Sodium 136 mmol/L (136-145)
[2019-01-08] MEDS ORDERED: Furosemide 40 MG/4 ML VIAL ONE (16:42)
[2019-01-08] MEDS ORDERED: Lorazepam 1 MG TAB ONE (17:03)
[2019-01-08 18:26] LABS: Troponin I Less than 0.010 ng/mL (< 0.028)
[2019-01-08] MEDS ORDERED: Acetaminophen 325 MG TAB PO PRN (20:10)
[2019-01-08] MEDS ORDERED: HumaLOG 300 UNITS/3 ML VIAL SC PRN (20:48)
[2019-01-08] MEDS ORDERED: Dextrose 50% Abboject 50 ML SYRINGE SLOW IVP PRN (20:48)
[2019-01-08] MEDS ORDERED: Dextrose 5% in Water 1,000 ML IV PRN (20:48)
[2019-01-08 21:20] LABS: Troponin I 0.029 ng/mL (< 0.028)
--- NOTE | 2019-01-08 23:07 | HP ---
CHIEF COMPLAINT: Shortness of breath. HISTORY OF PRESENT ILLNESS: This patient is an 88-year-old female with a history of cardiomyopathy with a reduced ejection fraction, described as moderately decreased on a transesophageal echocardiogram with moderate to severe aortic stenosis and severe mitral regurgitation with transthoracic echo from July of this year showing ejection fraction of 35% to 40%. The patient was last seen here with an admission on November 28. At that time, the patient was in atrial fibrillation with rapid ventricular response. She was in atrial fibrillation rather and having some dyspnea. She underwent LINN and cardioversion. She was noted to have the aortic stenosis on echo and was referred to [place] to consider TAVR. There, the patient had a heart catheterization, which revealed coronary artery disease requiring multiple stent placements and the TAVR has been put on hold and that is actually supposed to occur in about 3 weeks. When she left the hospital in [place], she was told to discontinue her glipizide, lisinopril, Eliquis, and Lasix. She was to continue her amiodarone, levothyroxine, aspirin and Plavix and she was to have followup labs done here in order to check her renal function. Over the past couple of days, the patient has had some intermittent shortness of breath, which has come and gone. However, today it was not resolving, so they presented to the hospital. The patient denies any specific chest pain. REVIEW OF SYSTEMS: Again, no chest pain. She has had no significant cough, fevers, or chills. She has been eating and drinking a fair amount. She has had normal bowel and bladder activity. Says she has continued to have good urine output. All other systems reviewed. All pertinent positives and negatives noted in the history of present illness. PAST MEDICAL HISTORY: Bilateral lower extremity edema with some chronic wounds, history of lower extremity cellulitis, chronic systolic and diastolic heart failure, diabetes mellitus, history of DVT, hypothyroidism, hyperlipidemia, coronary artery disease, atrial fibrillation, stasis dermatitis, previous TIA, chronic kidney disease stage 3, the above mentioned aortic stenosis and mitral regurgitation. PAST SURGICAL HISTORY: Coronary stents, hysterectomy, cataractectomy. SOCIAL HISTORY: The patient lives at home with family. She is a nonsmoker, nondrinker, and nondrug user. She is full code and her daughter is her surrogate decision maker. FAMILY HISTORY: Notable for coronary artery disease and diabetes in her mother. ALLERGIES: CODEINE, DOXYCYCLINE, STATINS, MORPHINE, AND PREDNISONE. CURRENT MEDICATIONS: Include; 1. Amiodarone 200 mg p.o. daily. 2. Levothyroxine 125 mcg daily. 3. Aspirin 81 mg daily. 4. Plavix 75 mg p.o. daily. PHYSICAL EXAMINATION: VITAL SIGNS: Blood pressure is 155/90, pulse 98, respirations 34, O2 saturation 97% on 1 L nasal cannula. GENERAL APPEARANCE: Age-appropriate female, she is in no distress, but she does tend to have a cyclical pattern of slightly hyperventilating and then slowing her breathing down substantially. However, she can stop and converse, although she does not speak a great deal. She is speaking generally in full sentences. HEENT: [place]. No OP lesions. Moist oral mucosa. NECK: Supple and symmetric. HEART: Regular without murmurs. LUNGS: Clear to auscultation bilaterally. ABDOMEN: Soft, nontender, and nondistended. Positive bowel sounds. No masses. No organomegaly. EXTREMITIES: Have no cyanosis, clubbing, or edema. There are some topical wound dressings in place on both calves. NEUROLOGIC: The patient has a normal cognition, appears to be able to move her extremities spontaneously. The nurse's notes indicate she has areas of breakdown in the sacral and gluteal fold area as well. She has a PureWick catheter in place. LABORATORY DATA: White count is 14.0, hemoglobin 8.1, platelets 372. Sodium 136, potassium 4.1, chloride 108, CO2 is 18, BUN 21, creatinine is 1.4, glucose 211, calcium 8.1, AST 15, ALT 16, alkaline phosphatase 116, troponin 0.02, albumin 3.0. DIAGNOSTIC STUDIES: Chest x-ray shows some mild pulmonary vascular congestion. EKG shows complete left bundle branch block. IMPRESSION AND PLAN: 1. Dyspnea. The patient has some tachypnea, although it appears that her saturations are okay on room air at 96% on presentation. Suspect this is related to decompensated congestive heart failure. The patient has a significantly reduced ejection fraction with valvular disease with aortic stenosis and severe mitral regurgitation. She also could potentially have a pulmonary embolus given her recent cessation of anticoagulation. The patient is largely immobile. She says she has no hip joints and therefore cannot take more than 1 or 2 steps at a time. She has been given a dose of Lasix in the emergency department. I am going to check a BNP and a D-dimer and going to continue with the supplemental oxygen and check an ABG. Her respiratory pattern appears unusual. 2. Decompensated heart failure as above. She has acute on chronic systolic and diastolic combined heart failure. We will consult Cardiology and will not give additional Lasix at this time. 3. Anemia. The patient's hemoglobin is lower than any of her previous values. We will heme check stools and reassess her hemoglobin in the morning. 4. Chronic kidney disease, stage 3 to 4. Most recent GFRs were in the upper 20s close to where she is now. We will continue to monitor. 5. Diabetes mellitus. She has been off her glipizide. I can only assume she has been off these medicines because she had some renal injury, possibly related to the heart catheterization. We will check Accu-Cheks and sliding scale insulin for now. 6. Leukocytosis. Etiology is unclear, could be simply demargination. Blood cultures have been obtained. We will also order urinalysis. 7. Coronary artery disease, status post recent stents. Continue with her Plavix and aspirin. 8. History of atrial fibrillation. Continue with the amiodarone. 9. Hypothyroidism. Continue with her p.o. levothyroxine. Job ID: [id number]
[2019-01-09 05:13] LABS: #Eosinphils 0.2 thou/uL (0.0-0.7); #Lymphocytes 2.2 thou/uL (1.20-3.40); #Monocytes 0.8 thou/uL (0.11-0.59); #Neutrophils 10.7 thou/uL (1.40-6.50); %Basophils 0.3 % (0.0-1.0); %Eosinophils 1.7 % (0.0-10.0); %Lymphocytes 15.6 % (21.0-51.0); %Monocytes 5.7 % (0.0-10.0); %Neutrophils 76.7 % (42.0-75.0); Hemoglobin 7.2 g/dL (12.0-16.0); Mean Corpuscular HGB CONC 32.4 g/dL (32.0-36.0); Mean Corpuscular Hemoglobin 26.7 pg (27.0-31.0); Mean Corpuscular Volume 82.4 fL (78.0-98.0); Mean Platelet Volume 7.7 fL (7.4-10.4); Platelet Count 332 thou/uL (130-400); White Blood Cell (WBC) Count 13.9 thou/uL (4.8-10.8)
[2019-01-09 05:35] LABS: Anion Gap 14 mmol/L (10-20); BUN (Urea Nitrogen) 21 mg/dL (9.8-20.1); Calc. Creatinine Clearance 38 mL/min (70-130); Carbon Dioxide 18 mmol/L (23-31); Chloride 107 mmol/L (98-107); Estimated GFR-MDRD 35; Glucose 149 mg/dL (83-110); Potassium 3.6 mmol/L (3.5-5.1); Sodium 135 mmol/L (136-145)
[2019-01-09] MEDS: Levothyroxine Sodium 125 MCG TAB PO SCH (06:16)
[2019-01-09] MEDS ORDERED: FLU VACC TS2019-20(65YR UP)/PF 180 MCG/0.5 ML SYRINGE IM ONE (09:00)
[2019-01-09] MEDS: Furosemide 40 MG/4 ML VIAL SLOW IVP SCH (09:21)
[2019-01-09] MEDS: Aspirin 81 mg Enteric Coated Tablet PO SCH (09:21)
[2019-01-09] MEDS: Clopidogrel Bisulfate 75 MG TAB PO SCH (09:21)
[2019-01-09] MEDS: Amiodarone 200 MG TAB PO SCH (09:21)
[2019-01-09] MEDS: Enoxaparin Sodium 40 MG/0.4 ML SYRINGE SC SCH (09:21)
--- NOTE | 2019-01-09 11:31 | CON ---
DATE OF CONSULTATION: HISTORY OF PRESENT ILLNESS: The patient unfortunately 88-year-old with a history of coronary artery disease and severe aortic stenosis, who presented with increasing dyspnea. The patient has a long history of coronary artery disease in 2003. She underwent PTCA and stent placed. She also suffered a cerebrovascular accident. The patient has a history of paroxysmal atrial fibrillation, has been treated with amiodarone. The patient also has a long history of aortic stenosis. She was referred recently for a possible TAVR. The patient underwent PTCA and stent placement. She at this time is being evaluated in [place]. She was recently discharged and told to undergo physical therapy prior to undergoing the procedure. The patient presented with increasing dyspnea. She denied having any chest discomfort. PAST MEDICAL HISTORY: 1. Coronary artery disease. 2. Aortic stenosis. 3. CVA. 4. Hypertension. 5. Diabetes mellitus. 6. Dyslipidemia. PAST SURGICAL HISTORY: Cataract surgeries. ALLERGIES: CODEINE, MORPHINE, PREDNISONE, AND PHOSPHATE. SOCIAL HISTORY: Nonsmoker. MEDICATIONS ON ADMISSION: 1. Synthroid 125 mcg daily. 2. Plavix 75 daily. 3. Aspirin 81 daily. 4. Amiodarone 200 daily. REVIEW OF SYSTEMS: Noticeable for a weight loss and weakness. PHYSICAL EXAMINATION: GENERAL: This is a pale woman, in no acute distress. VITAL SIGNS: Blood pressure 125/61. NECK: Showed no jugular venous distention. LUNGS: Crackles in both bases. HEART: Regular rate and rhythm. Normal S1 and S2. 3/6 systolic murmur. ABDOMEN: Distended. EXTREMITIES: Showed trace edema. VASCULAR: Radial pulses 2+. LABORATORY DATA: White blood cell count 13.9, hemoglobin 7.2, hematocrit 22.3, platelets 332. Her sodium is 135, potassium 3.6, chloride 107, bicarb 18, BUN 21, creatinine 1.4. Her troponin was 0.029. BNP 1629. IMAGING STUDIES: Her EKG revealed normal sinus rhythm with left bundle-branch block. Her chest x-ray revealed mild cardiomegaly and pulmonary vascular congestion. IMPRESSION: 1. Congestive heart failure. 2. Severe coronary artery disease status post multiple percutaneous transluminal coronary angioplasty and stent placement. 3. Severe aortic stenosis. 4. Hypertension. 5. Dyslipidemia. 6. History of renal insufficiency. This unfortunate woman presents with congestive heart failure. She is being considered for TAVR. However, she needs to first undergo physical therapy and rehab. From a cardiac standpoint, she is markedly anemic. We would recommend transfusing 2 units of packed red blood cells. Would diurese her with Lasix. The patient's prognosis is very guarded. Job ID: [id number] MTDD
[2019-01-09] MEDS ORDERED: Furosemide 40 MG/4 ML VIAL SLOW IVP SCH ×2 (11:45→23:00)
--- NOTE | 2019-01-09 12:30 | PDOC.HOSPP ---
- Subjective Encounter Date: 01/09/19 Encounter Time: 10:30 Subjective: awake, not in distress now no sob or chest pain daughter at bedside - Objective Vital Signs & Weight: Vital Signs (12 hours) Temp Pulse Resp BP BP Pulse Ox 01/09/19 07:00 98.4 F 87 20 120/60 96 01/09/19 03:28 98.3 F 85 18 125/61 95 Weight Admit Weight 187 lb 3.2 oz Weight 187 lb 3.2 oz I&O: 01/08/19 01/09/19 01/10/19 06:59 06:59 06:59 Intake Total 240 Output Total 200 Balance -200 240 Result Diagrams: 01/09/19 04:54 01/09/19 04:54 Additional Labs: Accuchecks 01/09/19 11:16 POC Glucose 211 H Hospitalist ROS - Medication Medications: Active Medications Generic Name Dose Route Start Last Admin Trade Name Freq PRN Reason Stop Dose Admin Amiodarone HCl 200 mg 01/09/19 09:00 01/09/19 09:21 Cordarone PO 200 mg DAILY DEVAN Administration Aspirin 81 mg 01/09/19 09:00 01/09/19 09:21 Ecotrin PO 81 mg DAILY DEVAN Administration Clopidogrel Bisulfate 75 mg 01/09/19 09:00 01/09/19 09:21 Plavix PO 75 mg DAILY DEVAN Administration Enoxaparin Sodium 40 mg 01/09/19 09:00 01/09/19 09:21 Lovenox SC 40 mg 0900 DEVAN Administration Furosemide 40 mg 01/09/19 09:00 01/09/19 09:21 Lasix SLOW IVP 40 mg DAILY DEVAN Administration Levothyroxine Sodium 125 mcg 01/09/19 06:00 01/09/19 06:16 Synthroid PO 125 mcg 0600 DEVAN Administration - Exam General Appearance: NAD, awake alert Eye: PERRL, anicteric sclera ENT: no oropharyngeal lesions, moist mucosa Neck: supple, JVD Heart: RRR, no rubs Respiratory: no wheezes, rales Gastrointestinal: soft, non-tender, non-distended, normal bowel sounds Extremities: no cyanosis, 1+ LE edema Neurological: cranial nerve grossly intact, no focal deficits Psychiatric: normal affect, A&O x 3 Hosp A/P (1) Acute on chronic systolic CHF (congestive heart failure) Code(s): I50.23 - ACUTE ON CHRONIC SYSTOLIC (CONGESTIVE) HEART FAILURE Status : Acute (2) Atrial fibrillation Code(s): I48.91 - UNSPECIFIED ATRIAL FIBRILLATION Status: Chronic Qualifiers: Atrial fibrillation type: paroxysmal (3) CKD (chronic kidney disease) stage 3, GFR 30-59 ml/min Code(s): N18.3 - CHRONIC KIDNEY DISEASE, STAGE 3 (MODERATE) Status: Chronic (4) Physical debility Code(s): R53.81 - OTHER [place] Status: Chronic (5) CAD (coronary artery disease) Code(s): I25.10 - ATHSCL HEART DISEASE OF [place] CORONARY ARTERY W/O ANG PCTRS Status: Chronic Qualifiers: Coronary Disease-Associated Artery/Lesion type: [place] artery [place] vs. transplanted heart: [place] heart Associated angina: without angina Qualified Code(s): I25.10 - Atherosclerotic heart disease of [place] coronary artery without angina pectoris (6) DM2 (diabetes mellitus, type 2) Status: Chronic Qualifiers: Diabetes mellitus medical terminologist insulin use: without medical terminologist use Diabetes mellitus complication status: with kidney complications Chronic kidney disease stage: stage 3 (moderate) (7) Dyslipidemia Code(s): E78.5 - HYPERLIPIDEMIA, UNSPECIFIED Status: Chronic (8) H/O: CVA (cerebrovascular accident) Code(s): Z86.73 - PRSNL HX OF TIA (TIA), AND CEREB INFRC W/O RESID DEFICITS Status: Chronic (9) Hypertension Code(s): I10 - ESSENTIAL (PRIMARY) HYPERTENSION Status: Chronic Qualifiers: Hypertension type: essential hypertension Qualified Code(s): I10 - Essential (primary) hypertension (10) Hypothyroid Code(s): E03.9 - HYPOTHYROIDISM, UNSPECIFIED Status: Chronic Qualifiers: Hypothyroidism type: unspecified Qualified Code(s): E03.9 - Hypothyroidism , unspecified (11) Obesity (BMI 30-39.9) Code(s): E66.9 - OBESITY, UNSPECIFIED Status: Chronic (12) Aortic stenosis, severe Code(s): I35.0 - NONRHEUMATIC AORTIC (VALVE) STENOSIS Status: Chronic - Plan needs gentle diuresis Hb around 7gm, will be getting prbc is on asp, plavix with recent stent placed in [place] is scheduled for tavr in 3 weeks if mobilizes a few steps per daughter continue amiodarone, synthroid will switch status to inpatient
[2019-01-09 16:43] LABS: Bilirubin Negative (Negative); Blood, Urine 2+ (Negative); Clarity Clear (Clear); Glucose, Urine (Dipstick) Normal (Negative); Leukocyte 75 Leu/uL (Negative); Nitrite Negative (Negative); Protein, Urine (Dipstick) Negative (Neg-Trace); Squamous Epithelial 0-3 HPF (0-3); Urobilinogen Normal mg/dL (Less than 2); WBC/HPF 0-3 HPF (0-3)
[2019-01-09 16:53] LABS: Bacteria/HPF 3+ HPF (None Seen); Yeast-Budding 2+ HPF (None Seen)
[2019-01-10] MEDS: Levothyroxine Sodium 125 MCG TAB PO SCH (06:16)
[2019-01-10 08:22] LABS: #Eosinphils 0.4 thou/uL (0.0-0.7); #Lymphocytes 1.8 thou/uL (1.20-3.40); #Monocytes 0.7 thou/uL (0.11-0.59); %Basophils 0.3 % (0.0-1.0); %Lymphocytes 15.2 % (21.0-51.0); %Monocytes 5.9 % (0.0-10.0); %Neutrophils 75.7 % (42.0-75.0); Mean Corpuscular HGB CONC 32.9 g/dL (32.0-36.0); Mean Corpuscular Hemoglobin 27.9 pg (27.0-31.0); Mean Corpuscular Volume 84.7 fL (78.0-98.0); Mean Platelet Volume 7.8 fL (7.4-10.4); Platelet Count 318 thou/uL (130-400); RBC Distribution Width 16.3 % (11.5-14.5); Red Blood Cell (RBC) Count 3.93 mill/uL (4.20-5.40); White Blood Cell (WBC) Count 11.8 thou/uL (4.8-10.8)
[2019-01-10 08:23] LABS: ALT (SGPT) 8 U/L (8-55); AST (SGOT) 14 U/L (5-34); Alkaline Phosphatase 113 U/L (40-110); Anion Gap 15 mmol/L (10-20); BUN (Urea Nitrogen) 21 mg/dL (9.8-20.1); Bilirubin, Total 1.1 mg/dL (0.2-1.2); Calc. Creatinine Clearance 38 mL/min (70-130); Carbon Dioxide 22 mmol/L (23-31); Chloride 104 mmol/L (98-107); Estimated GFR-MDRD 34; Globulin 3.7 g/dL (2.4-3.5); Glucose 126 mg/dL (83-110); Potassium 3.6 mmol/L (3.5-5.1); Protein, Total 6.7 g/dL (6.0-8.3); Sodium 137 mmol/L (136-145)
[2019-01-10] MEDS: Amiodarone 200 MG TAB PO SCH (09:39)
[2019-01-10] MEDS: Enoxaparin Sodium 40 MG/0.4 ML SYRINGE SC SCH (09:39)
[2019-01-10] MEDS: Aspirin 81 mg Enteric Coated Tablet PO SCH (09:39)
[2019-01-10] MEDS: Clopidogrel Bisulfate 75 MG TAB PO SCH (09:39)
[2019-01-10] MEDS ORDERED: Furosemide 20 MG TAB PO SCH (09:45)
[2019-01-10] MEDS: Furosemide 40 MG/4 ML VIAL SLOW IVP SCH (12:00)
--- NOTE | 2019-01-10 16:02 | PDOC.HOSPP ---
- Subjective Encounter Date: 01/10/19 Encounter Time: 10:15 Subjective: awake, no sob, feels better daughter at bedside - Objective Vital Signs & Weight: Vital Signs (12 hours) Temp Pulse Resp BP Pulse Ox 01/10/19 07:33 98.1 F 76 17 147/68 H 99 01/10/19 04:00 97.2 F L 84 22 H 130/62 98 Weight Admit Weight 187 lb 3.2 oz Weight 190 lb 11.2 oz I&O: 01/09/19 01/10/19 01/11/19 06:59 06:59 06:59 Intake Total 1570 Output Total 200 2000 Balance -200 -430 Result Diagrams: 01/10/19 07:42 01/10/19 07:42 Additional Labs: Accuchecks 01/10/19 01/10/19 01/09/19 12:02 05:35 20:05 POC Glucose 149 H 127 H 199 H 01/09/19 16:36 POC Glucose 153 H Hospitalist ROS - Medication Medications: Active Medications Generic Name Dose Route Start Last Admin Trade Name Apryl PRN Reason Stop Dose Admin Amiodarone HCl 200 mg 01/09/19 09:00 01/10/19 09:39 Cordarone PO 200 mg DAILY DEVAN Administration Aspirin 81 mg 01/09/19 09:00 01/10/19 09:39 Ecotrin PO 81 mg DAILY DEVAN Administration Clopidogrel Bisulfate 75 mg 01/09/19 09:00 01/10/19 09:39 Plavix PO 75 mg DAILY DEVAN Administration Enoxaparin Sodium 40 mg 01/09/19 09:00 01/10/19 09:39 Lovenox SC 40 mg 0900 DEVAN Administration Levothyroxine Sodium 125 mcg 01/09/19 06:00 01/10/19 06:16 Synthroid PO 125 mcg 0600 DEVAN Administration - Exam General Appearance: NAD, awake alert Eye: PERRL, anicteric sclera ENT: no oropharyngeal lesions, moist mucosa Neck: supple, no JVD Heart: RRR, murmur present Respiratory: no wheezes, no rales Gastrointestinal: soft, non-tender, non-distended, normal bowel sounds Extremities: no cyanosis, no edema Neurological: cranial nerve grossly intact, no focal deficits Psychiatric: A&O x 3 Hosp A/P (1) Acute on chronic systolic CHF (congestive heart failure) Code(s): I50.23 - ACUTE ON CHRONIC SYSTOLIC (CONGESTIVE) HEART FAILURE Status : Acute (2) Atrial fibrillation Code(s): I48.91 - UNSPECIFIED ATRIAL FIBRILLATION Status: Chronic Qualifiers: Atrial fibrillation type: paroxysmal (3) CKD (chronic kidney disease) stage 3, GFR 30-59 ml/min Code(s): N18.3 - CHRONIC KIDNEY DISEASE, STAGE 3 (MODERATE) Status: Chronic (4) Physical debility Code(s): R53.81 - OTHER MALAISE Status: Chronic (5) CAD (coronary artery disease) Code(s): I25.10 - ATHSCL HEART DISEASE OF [place] CORONARY ARTERY W/O ANG PCTRS Status: Chronic Qualifiers: Coronary Disease-Associated Artery/Lesion type: [place] artery [place] vs. transplanted heart: [place] heart Associated angina: without angina Qualified Code(s): I25.10 - Atherosclerotic heart disease of [place] coronary artery without angina pectoris (6) DM2 (diabetes mellitus, type 2) Status: Chronic Qualifiers: Diabetes mellitus snf insulin use: without vermin exterminator use Diabetes mellitus complication status: with kidney complications Chronic kidney disease stage: stage 3 (moderate) (7) Dyslipidemia Code(s): E78.5 - HYPERLIPIDEMIA, UNSPECIFIED Status: Chronic (8) H/O: CVA (cerebrovascular accident) Code(s): Z86.73 - PRSNL HX OF TIA (TIA), AND CEREB INFRC W/O RESID DEFICITS Status: Chronic (9) Hypertension Code(s): I10 - ESSENTIAL (PRIMARY) HYPERTENSION Status: Chronic Qualifiers: Hypertension type: essential hypertension Qualified Code(s): I10 - Essential (primary) hypertension (10) Hypothyroid Code(s): E03.9 - HYPOTHYROIDISM, UNSPECIFIED Status: Chronic Qualifiers: Hypothyroidism type: unspecified Qualified Code(s): E03.9 - Hypothyroidism , unspecified (11) Obesity (BMI 30-39.9) Code(s): E66.9 - OBESITY, UNSPECIFIED Status: Chronic (12) Aortic stenosis, severe Code(s): I35.0 - NONRHEUMATIC AORTIC (VALVE) STENOSIS Status: Chronic - Plan continue gentle diuresis Hb around 11gm, got 2 u prbc 01/09/2019 is on asp, plavix with recent stent placed in [place] is scheduled for tavr in 3 weeks if she mobilizes a few steps per daughter continue amiodarone, synthroid will switch status to inpatient awaiting swing bed in [place]
[2019-01-11 05:48] LABS: Anion Gap 17 mmol/L (10-20); BUN (Urea Nitrogen) 23 mg/dL (9.8-20.1); Calc. Creatinine Clearance 39 mL/min (70-130); Calcium 8.4 mg/dL (7.8-10.44); Carbon Dioxide 18 mmol/L (23-31); Chloride 104 mmol/L (98-107); Estimated GFR-MDRD 35; Glucose 111 mg/dL (83-110); Potassium 4.1 mmol/L (3.5-5.1); Sodium 135 mmol/L (136-145)
[2019-01-11] MEDS: Levothyroxine Sodium 125 MCG TAB PO SCH (06:10)
[2019-01-11] MEDS: Amiodarone 200 MG TAB PO SCH (09:48)
[2019-01-11] MEDS: Aspirin 81 mg Enteric Coated Tablet PO SCH (09:48)
[2019-01-11] MEDS: Furosemide 20 MG TAB PO SCH (09:49)
[2019-01-11] MEDS: Enoxaparin Sodium 40 MG/0.4 ML SYRINGE SC SCH (09:49)
[2019-01-11] MEDS: Clopidogrel Bisulfate 75 MG TAB PO SCH (09:49)
--- NOTE | 2019-01-11 12:21 | PDOC.HOSPP ---
- Subjective Encounter Date: 01/11/19 Encounter Time: 11:00 Subjective: no sob, feels better daughter at bedside - Objective Vital Signs & Weight: Vital Signs (12 hours) Temp Pulse Resp BP Pulse Ox 01/11/19 10:46 97.4 F L 78 20 147/67 H 99 01/11/19 07:30 97.6 F 72 22 H 126/64 98 01/11/19 04:00 97.8 F 75 20 140/69 99 Weight Admit Weight 187 lb 3.2 oz Weight 192 lb I&O: 01/10/19 01/11/19 01/12/19 06:59 06:59 06:59 Intake Total 1570 1000 537 Output Total 2000 650 Balance -430 350 537 Result Diagrams: 01/10/19 07:42 01/11/19 04:36 Additional Labs: Accuchecks 01/11/19 01/11/19 01/10/19 10:45 05:49 20:14 POC Glucose 162 H 118 H 184 H 01/10/19 01/10/19 01/09/19 18:10 12:02 05:44 POC Glucose 122 H 149 H 153 H Hospitalist ROS - Medication Medications: Active Medications Generic Name Dose Route Start Last Admin Trade Name Freq PRN Reason Stop Dose Admin Amiodarone HCl 200 mg 01/09/19 09:00 01/11/19 09:48 Cordarone PO 200 mg DAILY DEVAN Administration Aspirin 81 mg 01/09/19 09:00 01/11/19 09:48 Ecotrin PO 81 mg DAILY DEVAN Administration Clopidogrel Bisulfate 75 mg 01/09/19 09:00 01/11/19 09:49 Plavix PO 75 mg DAILY DEVAN Administration Enoxaparin Sodium 40 mg 01/09/19 09:00 01/11/19 09:49 Lovenox SC 40 mg 0900 DEVAN Administration Furosemide 20 mg 01/11/19 09:00 01/11/19 09:49 Lasix PO 20 mg DAILY DEVAN Administration Levothyroxine Sodium 125 mcg 01/09/19 06:00 01/11/19 06:10 Synthroid PO 125 mcg 0600 DEVAN Administration - Exam General Appearance: awake alert Eye: PERRL, anicteric sclera ENT: no oropharyngeal lesions, moist mucosa Neck: supple, no JVD Heart: RRR, murmur present Respiratory: no wheezes, no rales Gastrointestinal: non-tender, non-distended, normal bowel sounds Extremities: no cyanosis, no edema Neurological: cranial nerve grossly intact, no focal deficits Psychiatric: normal affect, A&O x 3 Hosp A/P (1) Acute on chronic systolic CHF (congestive heart failure) Code(s): I50.23 - ACUTE ON CHRONIC SYSTOLIC (CONGESTIVE) HEART FAILURE Status : Acute (2) Atrial fibrillation Code(s): I48.91 - UNSPECIFIED ATRIAL FIBRILLATION Status: Chronic Qualifiers: Atrial fibrillation type: paroxysmal (3) CKD (chronic kidney disease) stage 3, GFR 30-59 ml/min Code(s): N18.3 - CHRONIC KIDNEY DISEASE, STAGE 3 (MODERATE) Status: Chronic (4) Physical debility Code(s): R53.81 - OTHER MALAISE Status: Chronic (5) CAD (coronary artery disease) Code(s): I25.10 - ATHSCL HEART DISEASE OF [place] CORONARY ARTERY W/O ANG PCTRS Status: Chronic Qualifiers: Coronary Disease-Associated Artery/Lesion type: [place] artery [place] vs. transplanted heart: [place] heart Associated angina: without angina Qualified Code(s): I25.10 - Atherosclerotic heart disease of [place] coronary artery without angina pectoris (6) DM2 (diabetes mellitus, type 2) Status: Chronic Qualifiers: Diabetes mellitus intermodal truck driver insulin use: without intermodal truck driver use Diabetes mellitus complication status: with kidney complications Chronic kidney disease stage: stage 3 (moderate) (7) Dyslipidemia Code(s): E78.5 - HYPERLIPIDEMIA, UNSPECIFIED Status: Chronic (8) H/O: CVA (cerebrovascular accident) Code(s): Z86.73 - PRSNL HX OF TIA (TIA), AND CEREB INFRC W/O RESID DEFICITS Status: Chronic (9) Hypertension Code(s): I10 - ESSENTIAL (PRIMARY) HYPERTENSION Status: Chronic Qualifiers: Hypertension type: essential hypertension Qualified Code(s): I10 - Essential (primary) hypertension (10) Hypothyroid Code(s): E03.9 - HYPOTHYROIDISM, UNSPECIFIED Status: Chronic Qualifiers: Hypothyroidism type: unspecified Qualified Code(s): E03.9 - Hypothyroidism , unspecified (11) Obesity (BMI 30-39.9) Code(s): E66.9 - OBESITY, UNSPECIFIED Status: Chronic (12) Aortic stenosis, severe Code(s): I35.0 - NONRHEUMATIC AORTIC (VALVE) STENOSIS Status: Chronic - Plan continue gentle diuresis, may switch to po lasix Hb around 11gm, got 2 u prbc 01/09/2019 is on asp, plavix with recent stent placed in [place] is scheduled for tavr in 3 weeks if she mobilizes a few steps per daughter continue amiodarone, synthroid awaiting swing bed in [place], may dc if approved and ok with .
[2019-01-11 13:16] VITALS: BMI 31.9
[2019-01-12] MEDS: Levothyroxine Sodium 125 MCG TAB PO SCH (05:34)
[2019-01-12 06:25] LABS: #Eosinphils 0.3 thou/uL (0.0-0.7); #Monocytes 0.7 thou/uL (0.11-0.59); #Neutrophils 7.5 thou/uL (1.40-6.50); %Basophils 0.2 % (0.0-1.0); %Lymphocytes 19.1 % (21.0-51.0); %Monocytes 6.8 % (0.0-10.0); Mean Corpuscular HGB CONC 32.8 g/dL (32.0-36.0); Mean Corpuscular Hemoglobin 27.9 pg (27.0-31.0); Mean Corpuscular Volume 84.9 fL (78.0-98.0); Mean Platelet Volume 7.6 fL (7.4-10.4); Platelet Count 362 thou/uL (130-400); White Blood Cell (WBC) Count 10.6 thou/uL (4.8-10.8)
[2019-01-12 06:44] LABS: Anion Gap 14 mmol/L (10-20); BUN (Urea Nitrogen) 23 mg/dL (9.8-20.1); Calc. Creatinine Clearance 40 mL/min (70-130); Calcium 8.5 mg/dL (7.8-10.44); Carbon Dioxide 22 mmol/L (23-31); Chloride 105 mmol/L (98-107); Estimated GFR-MDRD 36; Glucose 109 mg/dL (83-110); Potassium 3.7 mmol/L (3.5-5.1); Sodium 137 mmol/L (136-145)
[2019-01-12] MEDS: Enoxaparin Sodium 40 MG/0.4 ML SYRINGE SC SCH (09:37)
[2019-01-12] MEDS: Clopidogrel Bisulfate 75 MG TAB PO SCH (09:37)
[2019-01-12] MEDS: Aspirin 81 mg Enteric Coated Tablet PO SCH (09:37)
[2019-01-12] MEDS: Furosemide 20 MG TAB PO SCH (09:37)
[2019-01-12] MEDS: Amiodarone 200 MG TAB PO SCH (09:37)
[2019-01-12 11:16] VITALS: TEMP 97.6
[2019-01-12 11:59] VITALS: BP 130/61
--- NOTE | 2019-01-12 12:49 | PDOC.HOSPP ---
- Subjective Encounter Date: 01/12/19 Encounter Time: 09:25 Subjective: no sob or palp feels better - Objective Vital Signs & Weight: Vital Signs (12 hours) Temp Pulse Pulse Pulse Resp BP BP 01/12/19 11:11 97.6 F 70 16 01/12/19 09:20 75 71 130/61 138/63 01/12/19 08:00 01/12/19 04:10 97.5 F L 73 20 BP Pulse Ox 01/12/19 11:11 140/65 99 01/12/19 09:20 01/12/19 08:00 99 01/12/19 04:10 139/63 98 Weight Admit Weight 187 lb 3.2 oz Weight 192 lb I&O: 01/11/19 01/12/19 01/13/19 06:59 06:59 06:59 Intake Total 1000 1274 Output Total 650 300 Balance 350 974 Result Diagrams: 01/12/19 06:12 01/12/19 06:12 Additional Labs: Accuchecks 01/12/19 01/12/19 01/11/19 11:17 05:22 20:39 POC Glucose 159 H 107 157 H 01/11/19 16:22 POC Glucose 167 H Hospitalist ROS - Medication Medications: Active Medications Generic Name Dose Route Start Last Admin Trade Name Flacoq PRN Reason Stop Dose Admin Amiodarone HCl 200 mg 01/09/19 09:00 01/12/19 09:37 Cordarone PO 200 mg DAILY DEVAN Administration Aspirin 81 mg 01/09/19 09:00 01/12/19 09:37 Ecotrin PO 81 mg DAILY DEVAN Administration Clopidogrel Bisulfate 75 mg 01/09/19 09:00 01/12/19 09:37 Plavix PO 75 mg DAILY DEVAN Administration Enoxaparin Sodium 40 mg 01/09/19 09:00 01/12/19 09:37 Lovenox SC 40 mg 0900 DEVAN Administration Furosemide 20 mg 01/11/19 09:00 01/12/19 09:37 Lasix PO 20 mg DAILY DEVAN Administration Levothyroxine Sodium 125 mcg 01/09/19 06:00 01/12/19 05:34 Synthroid PO 125 mcg 0600 DEVAN Administration - Exam General Appearance: NAD, awake alert Eye: PERRL, anicteric sclera ENT: no oropharyngeal lesions, moist mucosa Neck: supple, no JVD Heart: RRR, no murmur Respiratory: no wheezes, no rales Gastrointestinal: soft, non-tender, non-distended, normal bowel sounds Extremities: no cyanosis, no edema Neurological: cranial nerve grossly intact, no focal deficits Psychiatric: normal affect, A&O x 3 Hosp A/P (1) Acute on chronic systolic CHF (congestive heart failure) Code(s): I50.23 - ACUTE ON CHRONIC SYSTOLIC (CONGESTIVE) HEART FAILURE Status : Acute (2) Atrial fibrillation Code(s): I48.91 - UNSPECIFIED ATRIAL FIBRILLATION Status: Chronic Qualifiers: Atrial fibrillation type: paroxysmal (3) CKD (chronic kidney disease) stage 3, GFR 30-59 ml/min Code(s): N18.3 - CHRONIC KIDNEY DISEASE, STAGE 3 (MODERATE) Status: Chronic (4) Physical debility Code(s): R53.81 - OTHER MALAISE Status: Chronic (5) CAD (coronary artery disease) Code(s): I25.10 - ATHSCL HEART DISEASE OF [place] CORONARY ARTERY W/O ANG PCTRS Status: Chronic Qualifiers: Coronary Disease-Associated Artery/Lesion type: [place] artery [place] vs. transplanted heart: [place] heart Associated angina: without angina Qualified Code(s): I25.10 - Atherosclerotic heart disease of [place] coronary artery without angina pectoris (6) DM2 (diabetes mellitus, type 2) Status: Chronic Qualifiers: Diabetes mellitus nursing home insulin use: without nursing home use Diabetes mellitus complication status: with kidney complications Chronic kidney disease stage: stage 3 (moderate) (7) Dyslipidemia Code(s): E78.5 - HYPERLIPIDEMIA, UNSPECIFIED Status: Chronic (8) H/O: CVA (cerebrovascular accident) Code(s): Z86.73 - PRSNL HX OF TIA (TIA), AND CEREB INFRC W/O RESID DEFICITS Status: Chronic (9) Hypertension Code(s): I10 - ESSENTIAL (PRIMARY) HYPERTENSION Status: Chronic Qualifiers: Hypertension type: essential hypertension Qualified Code(s): I10 - Essential (primary) hypertension (10) Hypothyroid Code(s): E03.9 - HYPOTHYROIDISM, UNSPECIFIED Status: Chronic Qualifiers: Hypothyroidism type: unspecified Qualified Code(s): E03.9 - Hypothyroidism , unspecified (11) Obesity (BMI 30-39.9) Code(s): E66.9 - OBESITY, UNSPECIFIED Status: Chronic (12) Aortic stenosis, severe Code(s): I35.0 - NONRHEUMATIC AORTIC (VALVE) STENOSIS Status: Chronic - Plan oral lasix. Hb around 11gm, got 2 u prbc 01/09/2019 is on asp, plavix with recent stent placed in [place] is scheduled for tavr in 3 weeks if she mobilizes a few steps per daughter continue amiodarone, synthroid dc pt to swing bed in [place]
--- NOTE | 2019-01-13 14:39 | EKG ---
Test Reason : SOB Blood Pressure : / mmHG Vent. Rate : 092 BPM Atrial Rate : 092 BPM P-R Int : 200 ms QRS Dur : 150 ms QT Int : 438 ms P-R-T Axes : 085 -15 087 degrees QTc Int : 541 ms Normal sinus rhythm Left bundle branch block Abnormal ECG Confirmed by MADELIN STEWART DO ([id number]), international editorial producer SRIDHAR RHODES ([id number]) on 01/13/2019 2:38:40 PM Referred By: Confirmed By:MADELIN STEWART DO
--- NOTE | 2019-01-15 14:20 | DIS ---
DATE OF ADMISSION: 01/08/2019 DATE OF DISCHARGE: 01/12/2019 DISCHARGE DISPOSITION: To [facility]. PRIMARY DISCHARGE DIAGNOSES: 1. Acute on chronic congestive heart failure exacerbation with systolic dysfunction, [place] Heart Association class C, [place] Heart Association, stage III. 2. Chronic atrial fibrillation which is paroxysmal. 3. Chronic kidney disease, stage 3. 4. Deconditioning. 5. Coronary artery disease. 6. Diabetes mellitus, type 2. 7. Dyslipidemia. 8. History of cerebrovascular accident. 9. Hypertension. 10. Hypothyroidism. 11. Obesity. 12. Severe aortic stenosis. PROCEDURES DONE DURING HOSPITALIZATION: Chest x-ray done on the day of admission showed pulmonary vascular congestion. Blood cultures x2, no growth. H and H were 7 and 22. Was given 2 units of packed cells. Discharge H and H of 12 and 36 and platelet count 362. BUN 23, creatinine 1.4, albumin 3. DISCHARGE MEDICATIONS: 1. Aspirin 81 mg p.o. daily. 2. Amiodarone 200 mg p.o. daily. 3. Plavix 75 mg p.o. daily. 4. Levothyroxine 125 mcg p.o. daily. 5. Lasix 20 mg p.o. daily. ALLERGIES: ALLERGIC TO CODEINE, MORPHINE, AND STATIN. DISCHARGE PLAN: The patient is being discharged to [facility] in [place] for further recuperation. She needs to follow up with Dr. Simona Posada in 1 week, her primary care physician. BRIEF COURSE DURING HOSPITALIZATION: The patient initially got admitted on the with complaints of shortness of breath. Clinical exam and lab findings were consistent with acute on chronic CHF exacerbation. The patient also had history of recent stent placed in [place]. She also has severe aortic stenosis and TAVR, has been put on hold for deconditioning. In view of this, she has had gentle diuresis done during her stay here. Her medications were optimized. The patient was also transfused 2 units of packed cell in view of her being symptomatic with significant cardiac history. She is being discharged to [facility] for further recuperation. She needs to ambulate and mobilize more for her to get TAVR in [place] for her severe aortic stenosis. She is otherwise hemodynamically stable and is being accepted at [facility] in [place] now. Please note, I have seen and examined the patient on the day of discharge. A total of 35 minutes was spent on discharge plan. Brett ID: [id number] MTDD
== END 2019-01-12 13:48 | DRG 291 ==
LOC: ERS 14:25 → ERHOLD 17:25 → OBSVTOIN 17:25 → 2NO 22:24
PROVIDERS: ADMIT Internal Medicine; ATTEND Internal Medicine
DX: I13.0 Hypertensive heart and chronic kidney disease with heart failure and stage 1 through stage 4 chronic kidney disease, or unspecified chronic kidney disease (principal); L89.153 Pressure ulcer of sacral region, stage 3; I50.43 Acute on chronic combined systolic (congestive) and diastolic (congestive) heart failure; N17.9 Acute kidney failure, unspecified; E78.5 Hyperlipidemia, unspecified; E03.9 Hypothyroidism, unspecified; N18.3 Chronic kidney disease, stage 3 (moderate); D63.1 Anemia in chronic kidney disease; I48.91 Unspecified atrial fibrillation; I25.10 Atherosclerotic heart disease of native coronary artery without angina pectoris; E11.9 Type 2 diabetes mellitus without complications; I35.0 Nonrheumatic aortic (valve) stenosis; L89.612 Pressure ulcer of right heel, stage 2; L89.522 Pressure ulcer of left ankle, stage 2; I48.0 Paroxysmal atrial fibrillation; R53.81 Other malaise; E66.9 Obesity, unspecified; Z68.32 Body mass index [BMI] 32.0-32.9, adult; Z95.2 Presence of prosthetic heart valve; I25.2 Old myocardial infarction; Z95.5 Presence of coronary angioplasty implant and graft; Z79.01 Long term (current) use of anticoagulants; Z86.73 Personal history of transient ischemic attack (TIA), and cerebral infarction without residual deficits; Z90.710 Acquired absence of both cervix and uterus; Z98.42 Cataract extraction status, left eye; Z98.41 Cataract extraction status, right eye; Z88.8 Allergy status to other drugs, medicaments and biological substances
CPT/HCPCS: 36415; 36416; 36430; 71045; 80048; 80053; 81003; 81015; 83880; 84443; 84484; 85025; 85379; 86850; 86900; 86901; 87040; 93005; 96374; J1650; J1940; P9016

== ENCOUNTER 2019-03-07 10:01 | Inpatient (IN) | payer MEDICARE ==
--- NOTE | 2019-03-07 10:59 | RAD ---
Exam: Chest one view HISTORY:Dizziness. Comparison: 01/08/2019 FINDINGS: Cardiac silhouette: Normal. Coronary artery calcification. Aorta: Atherosclerosis Pulmonary vessels: Normal Costophrenic angles: Clear LUNGS: No masses or consolidation. Pneumothorax: None Osseous abnormalities: None IMPRESSION: No acute cardiopulmonary process. Coronary artery calcification. Atherosclerosis.
[2019-03-07 11:13] LABS: #Basophils 0.1 thou/uL (0.0-0.2); #Eosinphils 0.2 thou/uL (0.0-0.7); #Lymphocytes 2.8 thou/uL (1.20-3.40); #Neutrophils 6.3 thou/uL (1.40-6.50); %Basophils 0.7 % (0.0-1.0); %Eosinophils 2.3 % (0.0-10.0); %Monocytes 9.1 % (0.0-10.0); Hemoglobin 9.3 g/dL (12.0-16.0); Mean Corpuscular HGB CONC 32.5 g/dL (32.0-36.0); Mean Corpuscular Volume 86.2 fL (78.0-98.0); Mean Platelet Volume 8.2 fL (7.4-10.4); Platelet Count 281 thou/uL (130-400); RBC Distribution Width 15.7 % (11.5-14.5); Red Blood Cell (RBC) Count 3.31 mill/uL (4.20-5.40); White Blood Cell (WBC) Count 10.4 thou/uL (4.8-10.8)
[2019-03-07 11:26] LABS: Bilirubin Negative (Negative); Blood, Urine 2+ (Negative); Clarity Clear (Clear); Glucose, Urine (Dipstick) Normal (Negative); Leukocyte Negative Leu/uL (Negative); Nitrite Negative (Negative); Protein, Urine (Dipstick) Negative (Neg-Trace); Urobilinogen Normal mg/dL (Less than 2); WBC/HPF 0-3 HPF (0-3)
[2019-03-07 11:29] LABS: ALT (SGPT) 14 U/L (8-55); AST (SGOT) 22 U/L (5-34); Albumin 3.4 g/dL (3.4-4.8); Alkaline Phosphatase 94 U/L (40-110); Anion Gap 14 mmol/L (10-20); BUN (Urea Nitrogen) 37 mg/dL (9.8-20.1); Bilirubin, Total 0.3 mg/dL (0.2-1.2); CK (CPK) 33 U/L (29-168); Calc. Creatinine Clearance 0 mL/min (70-130); Carbon Dioxide 19 mmol/L (23-31); Chloride 109 mmol/L (98-107); Estimated GFR-MDRD 29; Globulin 3.5 g/dL (2.4-3.5); Glucose 156 mg/dL (83-110); Potassium 3.9 mmol/L (3.5-5.1); Protein, Total 6.9 g/dL (6.0-8.3); Sodium 138 mmol/L (136-145)
[2019-03-07 11:30] LABS: Bacteria/HPF 1+ HPF (None Seen)
--- NOTE | 2019-03-07 12:16 | CT ---
CT BRAIN WITHOUT CONTRAST: Date: 03/07/19 HISTORY: Syncope. FINDINGS: Comparison made with exam of 08/05/18. Changes of chronic small vessel ischemic disease are again seen. 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 The ventricular size is stable and the basilar cisterns are patent. No evidence of acute infarct, hemorrhage, midline shift, or abnormal extra-axial fluid collections ar e seen. The bony calvarium is intact. The visualized paranasal sinuses and mastoid air cells are well aerated. IMPRESSION: No CT evidence of acute intracranial process. POS: [facility]
[2019-03-07] MEDS ORDERED: Acetaminophen 650 MG Suppository PR PRN (16:51)
[2019-03-07] MEDS ORDERED: Ondansetron ODT 4 MG TAB PO PRN (16:51)
--- NOTE | 2019-03-07 17:12 | PDOC.HHP ---
Hospitalist HPI - History of Present Illness Weakness History of Present Illness: Mrs. Rivas is a pleasant 88 year old woman who presents with generalized weakness and lightheadedness that has persisted for the last several weeks. She was discharged from inpatient rehab 2 weeks ago and though she had made some improvement at the time of discharge, she has continued to become weaker since then. At discharge she was able to stand with assistance and at this time she is unable to sit up on her own. This she states is due to lightheadedness as well as general weakness. She also feels like her legs are weak and "dont work". Particularly the right foot. She complains of pain in the bilateral lower extremities and swelling. She has a history of DVTs and was taken of Eliquis. She is currently on Plavix and ASA. Patient reports a weight loss of 30 lbs in the last 2-3 months, partially due to the food given at rehab and since being home she has been able to eat much better. She denies any headaches or dizziness. States when she changes position, such to a sitting position she feels "woozy". She denies any vision or speech changes. No extremity or facial numbness or weakness. No chest pain , palpitations or shortness of breath. Per patient she was previously recommended valve replacement due to . She went to [place] to have this done and then was found to need coronary artery stents x 4. Therefore surgery was postponed. Since then the patient never fully recovered. Her local metal cleaner is Dr. Hunt. Last admitted here from 01/12 to 02/05 with CHF exacerbation. Last Echo was done 07/2018. Left ventricular function moderately depressed, EF 35-40%, mildly dilated left atrium. Moderate mitral regurgitation and AV sclerosis as well as mild TR. ED Course: In the ED she had CT Brain imaging which was unremarkable. CXR showed no acute changes. Labs notable for Hgb of 9.3, compared to 12 during previous admission. Renal function slightly worse from baseline. Trop negative. UA showed 2+ blood, 11-20 RBC, 1+ bacteria. Urine culture sent off. She was given 1 L normal saline. Hospitalist ROS - Review of Systems Constitutional: reports: weakness, malaise Eyes: denies: pain, vision change, conjunctivae inflammation, eyelid inflammation, redness, other ENT: denies: ear pain, ear discharge, nose pain, nose discharge, nose congestion , mouth pain, mouth swelling, throat pain, throat swelling, other Respiratory: denies: cough, dry, shortness of breath, hemoptysis, SOB with excertion, pleuritic pain, sputum, wheezing, other Cardiovascular: denies: chest pain, palpitations, orthopnea, paroxysmal noc. dyspnea, edema, light headedness, other Gastrointestinal: denies: nausea, vomiting, abdominal pain, diarrhea, constipation, melena, hematochezia, other Genitourinary: denies: dysuria, frequency, incontinence, hematuria, retention, other Musculoskeletal: reports: leg pain (bilateral). denies: neck pain, shoulder pain, arm pain, back pain, hand pain, foot pain, other Skin: reports: other (pallor) Neurological: reports: weakness (bilateral lower extremities) Hospitalist History - Past Medical History Source: patient, family Cardiac: reports: AFIB, CAD, [place] (x 3 stents, stents clogged and 4 new stents placed recently), Hyperlipidemia STIPPLER: reports: TIA Heme/Onc: reports: Anemia NOS Endocrine: reports: Diabetes, Hypothyroidism - Past Surgical History Past Surgical History: reports: Cataract Removal, Hysterectomy, Other (Coronary artery stents x 3 in 2004, stents clogged requiring stents x 4 11/2018.) - Family History Family History: reports: Other (CAD and diabetes) - Social History Smoking Status: Never smoker Alcohol: reports: None Drugs: reports: none Living Situation: With Family Activity level: bed bound - Exam General Appearance: ill appearing (appears generally weak and deconditioned, no acute distress or discomfort) Eye: PERRL, anicteric sclera ENT: normocephalic atraumatic, dry oral mucosa Neck: supple, no lymphadenopathy Heart: RRR, murmur present Respiratory: CTAB, no wheezes, no rales, normal chest expansion, no tachypnea Gastrointestinal: soft, non-tender, non-distended, normal bowel sounds, no palpable masses, no guarding, no rigidity Extremities: no edema Extremities - other findings: Dressing to right lower leg Skin: no lesions, no rashes Neurological: cranial nerve grossly intact, normal sensation to touch Neurological - other findings: lower extremity weakness Musculoskeletal: generalized weakness Psychiatric: normal affect, normal behavior, A&O x 3 Hospitalist Results - Labs Result Diagrams: 03/07/19 10:49 03/07/19 10:49 Lab results: WBC 10.4 thou/uL (4.8-10.8) 03/07/19 10:49 Hgb 9.3 g/dL (12.0-16.0) L 03/07/19 10:49 Hct 28.5 % (36.0-47.0) L 03/07/19 10:49 MCV 86.2 fL (78.0-98.0) 03/07/19 10:49 Plt Count 281 thou/uL (130-400) 03/07/19 10:49 Neutrophils % 61.0 % (42.0-75.0) 03/07/19 10:49 Sodium 138 mmol/L (136-145) 03/07/19 10:49 Potassium 3.9 mmol/L (3.5-5.1) 03/07/19 10:49 Chloride 109 mmol/L (98-107) H 03/07/19 10:49 Carbon Dioxide 19 mmol/L (23-31) L 03/07/19 10:49 BUN 37 mg/dL (9.8-20.1) H 03/07/19 10:49 Creatinine 1.68 mg/dL (0.6-1.1) H 03/07/19 10:49 Glucose 156 mg/dL (83-110) H 03/07/19 10:49 Calcium 9.0 mg/dL (7.8-10.44) 03/07/19 10:49 Total Bilirubin 0.3 mg/dL (0.2-1.2) 03/07/19 10:49 AST 22 U/L (5-34) 03/07/19 10:49 ALT 14 U/L (8-55) 03/07/19 10:49 Alkaline Phosphatase 94 U/L (40-110) 03/07/19 10:49 Creatine Kinase 33 U/L (29-168) 03/07/19 10:49 Troponin I Less than 0.010 ng/mL (< 0.028) 03/07/19 10:49 Serum Total Protein 6.9 g/dL (6.0-8.3) 03/07/19 10:49 Albumin 3.4 g/dL (3.4-4.8) 03/07/19 10:49 Urine Ketones Negative mg/dL (Negative) 03/07/19 10:28 Urine Blood 2+ (Negative) A 03/07/19 10:28 Urine Nitrite Negative (Negative) 03/07/19 10:28 Ur Leukocyte Esterase Negative Gabriela/uL (Negative) 03/07/19 10:28 Urine RBC 11-20 HPF (0-3) A 03/07/19 10:28 Urine WBC 0-3 HPF (0-3) 03/07/19 10:28 Ur Squamous Epith Cells 4-6 HPF (0-3) A 03/07/19 10:28 Urine Bacteria 1+ HPF (None Seen) A 03/07/19 10:28 - EKG Interpretation EKG: EKG showed HR 66, LBBB, normal ST segments and normal T waves. Hospitalist H&P A/P - Problem (1) Lightheadedness Code(s): R42 - DIZZINESS AND GIDDINESS Status: Acute (2) Physical debility Code(s): R53.81 - OTHER MALAISE Status: Chronic (3) SACHI (acute kidney injury) Code(s): N17.9 - ACUTE KIDNEY FAILURE, UNSPECIFIED Status: Acute (4) Weakness generalized Code(s): R53.1 - WEAKNESS Status: Acute (5) Aortic stenosis, severe Code(s): I35.0 - NONRHEUMATIC AORTIC (VALVE) STENOSIS Status: Chronic (6) Atrial fibrillation Code(s): I48.91 - UNSPECIFIED ATRIAL FIBRILLATION Status: Chronic Qualifiers: Atrial fibrillation type: paroxysmal (7) CAD (coronary artery disease) Code(s): I25.10 - ATHSCL HEART DISEASE OF [place] CORONARY ARTERY W/O ANG PCTRS Status: Chronic Qualifiers: Coronary Disease-Associated Artery/Lesion type: [place] artery [place] vs. transplanted heart: [place] heart Associated angina: without angina Qualified Code(s): I25.10 - Atherosclerotic heart disease of [place] coronary artery without angina pectoris (8) CKD (chronic kidney disease) stage 3, GFR 30-59 ml/min Code(s): N18.3 - CHRONIC KIDNEY DISEASE, STAGE 3 (MODERATE) Status: Chronic (9) DM2 (diabetes mellitus, type 2) Status: Chronic Qualifiers: Diabetes mellitus terminal make up operator insulin use: without mcfp use Diabetes mellitus complication status: with kidney complications Chronic kidney disease stage: stage 3 (moderate) (10) Dyslipidemia Code(s): E78.5 - HYPERLIPIDEMIA, UNSPECIFIED Status: Chronic (11) Hypertension Code(s): I10 - ESSENTIAL (PRIMARY) HYPERTENSION Status: Chronic Qualifiers: Hypertension type: essential hypertension Qualified Code(s): I10 - Essential (primary) hypertension (12) Hypothyroid Code(s): E03.9 - HYPOTHYROIDISM, UNSPECIFIED Status: Chronic Qualifiers: Hypothyroidism type: unspecified Qualified Code(s): E03.9 - Hypothyroidism , unspecified - Plan Plan: Cardiology consult requested in ED and Echo has been completed. I have added BNP, Mg+ and TSH to labs. Received 1L NS in ED, hold further fluids given history of CHF. Currently no clinical signs of fluid overload. Hgb low, has required transfusion in the past. Will give 1 unit PRBCs. Check stool for occult blood. Hx of DVT and with leg pain/swelling. Venous doppler to assess for DVT. Consult placed to palliative care re: goals of care. Resume home meds once verified. Monitor BP and glucose. Insulin sliding scale. Dietitian consulted given significant weight loss. Consider rehab screening, (patient states insurance capped out and this was why she was discharged from rehab). Urine culture pending. CODE STATUS: FULL Surrogate decision maker: Lauren Rivas.
[2019-03-07 17:51] LABS: Lactic Acid 1.9 mmol/L (0.5-2.2)
--- NOTE | 2019-03-07 18:07 | ULT ---
EXAM: Bilateral lower extremity venous Doppler PROVIDED CLINICAL HISTORY: Pain FINDINGS: Comparison 09/29/2018. Grayscale and color Doppler sonography with spectral analysis was performed of the common femoral, fe moral, posterior tibial, greater saphenous and profunda femoral veins bilaterally. There is partial noncompressibility involving the right common femoral and profunda femoral veins as well as the left common femoral and proximal and mid femoral veins. There is noncompressibility of the left posterior tibial and profunda femoral veins. The popliteal veins were not visualized bilaterally. IMPRESSION: Findings compatible with bilateral deep venous thrombosis as above.
[2019-03-08 05:20] LABS: #Basophils 0.1 thou/uL (0.0-0.2); #Eosinphils 0.4 thou/uL (0.0-0.7); #Lymphocytes 2.7 thou/uL (1.20-3.40); #Monocytes 0.9 thou/uL (0.11-0.59); #Neutrophils 6.2 thou/uL (1.40-6.50); %Basophils 0.9 % (0.0-1.0); %Eosinophils 3.6 % (0.0-10.0); %Lymphocytes 26.2 % (21.0-51.0); %Monocytes 9.1 % (0.0-10.0); %Neutrophils 60.2 % (42.0-75.0); Hemoglobin 10.7 g/dL (12.0-16.0); Mean Corpuscular HGB CONC 33.3 g/dL (32.0-36.0); Mean Corpuscular Hemoglobin 28.6 pg (27.0-31.0); Mean Corpuscular Volume 85.9 fL (78.0-98.0); Mean Platelet Volume 8.3 fL (7.4-10.4); Platelet Count 249 thou/uL (130-400); RBC Distribution Width 15.2 % (11.5-14.5); Red Blood Cell (RBC) Count 3.74 mill/uL (4.20-5.40); White Blood Cell (WBC) Count 10.3 thou/uL (4.8-10.8)
[2019-03-08 05:23] LABS: Anion Gap 14 mmol/L (10-20); BUN (Urea Nitrogen) 33 mg/dL (9.8-20.1); Calc. Creatinine Clearance 37 mL/min (70-130); Carbon Dioxide 17 mmol/L (23-31); Chloride 111 mmol/L (98-107); Estimated GFR-MDRD 37; Glucose 97 mg/dL (83-110); Sodium 138 mmol/L (136-145)
[2019-03-08] MEDS ORDERED: Aspirin 81 mg Enteric Coated Tablet PO SCH (09:00)
[2019-03-08] MEDS: Amiodarone 200 MG TAB PO SCH (09:39)
[2019-03-08] MEDS: Clopidogrel Bisulfate 75 MG TAB PO SCH (09:39)
[2019-03-08] MEDS: Famotidine/PF 20 mg/2ml Vial SLOW IVP SCH (09:40)
--- NOTE | 2019-03-08 11:23 | CON ---
DATE OF CONSULTATION: HISTORY OF PRESENT ILLNESS: The patient is an 88-year-old woman, who presents for evaluation of weakness. The patient has a long history of coronary artery disease. She is being considered for a TAVR procedure. The patient recently underwent PTCA and stent placement. The patient was in usual state of health when she was admitted with congestive heart failure. The patient was in cardiac rehab when she started feeling weak. She denied having any fevers or chills. The patient denied having any chest discomfort. PAST MEDICAL HISTORY: 1. Coronary artery disease. 2. Aortic stenosis. 3. Hypertension. 4. Dyslipidemia. 5. History of CVA. PAST SURGICAL HISTORY: Cataract surgery. ALLERGIES: 1. CODEINE. 2. MORPHINE. 3. PREDNISONE. 4. PHOSPHATE. SOCIAL HISTORY: Nonsmoker. MEDICATIONS: See nursing list. PHYSICAL EXAMINATION: GENERAL: Obese woman, in no acute distress. VITAL SIGNS: Blood pressure was 122/56. NECK: No jugular venous distention. LUNGS: Clear to auscultation. HEART: Regular rate and rhythm. Normal S1 and S2. 3/6 systolic murmur. ABDOMEN: Nondistended. EXTREMITIES: Showed trace edema. VASCULAR: Radial pulses are 2+. LABORATORY DATA: Sodium 138, potassium 4.0, chloride 111, bicarb 17, BUN 33, creatinine 1.36. White blood cell count 10.3, hemoglobin 10.7, hematocrit 31.1, platelets are 249. EKG revealed ectopic atrial rhythm with a left bundle-branch block. IMPRESSION AND PLAN: 1. Weakness secondary to dehydration and urinary tract infection. 2. Severe aortic stenosis. 3. History of percutaneous transluminal coronary angioplasty and stent placement. 4. Hypertension. 5. Diabetes mellitus. This patient presents with urinary tract infection and dehydration. The patient is being considered for transcatheter aortic valve replacement. Unfortunately, she has limited physical mobility. We would recommend intense physical therapy. We will follow this patient with you through her hospitalization. Job ID: [id number] MTDD
[2019-03-08] MEDS: cefTRIAXone\\ROCEPHIN 1 GM in Sodium Chloride 0.9% 100 ML IVPB SCH (13:42)
--- NOTE | 2019-03-08 13:51 | PDOC.HOSPP ---
- Subjective Encounter Date: 03/08/19 Encounter Time: 07:40 Subjective: Pt seen for followup re: UTI. States she feels well. - Objective Vital Signs & Weight: Vital Signs (12 hours) Temp Pulse Pulse Resp BP BP BP 03/08/19 11:17 97.7 F 65 17 124/60 03/08/19 09:39 03/08/19 07:20 98.5 F 69 11 L 122/56 L 03/08/19 04:00 98.5 F 65 16 122/59 L 03/08/19 02:45 97.5 F L 67 18 138/63 Pulse Ox 03/08/19 11:17 99 03/08/19 09:39 100 03/08/19 07:20 100 03/08/19 04:00 100 03/08/19 02:45 99 Weight Weight 175 lb 1 oz I&O: 03/07/19 03/08/19 03/09/19 06:59 06:59 06:59 Intake Total 500 Output Total 150 Balance 350 Result Diagrams: 03/08/19 04:28 03/08/19 04:28 Additional Labs: Accuchecks 03/08/19 10:42 POC Glucose 210 H Labs and MARs reviewed by me EKG Reviewed by me: Yes (Tele: NSR) Hospitalist ROS - Review of Systems Cardiovascular: denies: chest pain, palpitations, orthopnea, paroxysmal noc. dyspnea, edema, light headedness Gastrointestinal: denies: nausea, vomiting, abdominal pain, diarrhea, constipation, melena, hematochezia - Medication Medications: Active Medications Generic Name Dose Route Start Last Admin Trade Name Apryl PRN Reason Stop Dose Admin Amiodarone HCl 200 mg 03/08/19 09:00 03/08/19 09:39 Cordarone PO 200 mg DAILY DEVAN Administration Aspirin 81 mg 03/08/19 09:00 03/08/19 09:39 Ecotrin PO 81 mg DAILY DEVAN Administration Clopidogrel Bisulfate 75 mg 03/08/19 09:00 03/08/19 09:39 Plavix PO 75 mg DAILY DEVAN Administration Famotidine 20 mg 03/08/19 09:00 03/08/19 09:40 Pepcid SLOW IVP 20 mg DAILY DEVAN Administration - Exam General Appearance: NAD Eye: anicteric sclera ENT: moist mucosa Neck: supple Heart: RRR Respiratory: CTAB Gastrointestinal: soft, non-tender Extremities: 1+ LE edema Psychiatric: normal affect, normal behavior Hosp A/P (1) UTI (urinary tract infection) Status: Acute (2) DVT (deep venous thrombosis) Code(s): I82.409 - ACUTE EMBOLISM AND [place]OMBOS UNSP DEEP VN UNSP LOWER EXTREMITY Status: Acute (3) Dyslipidemia Code(s): E78.5 - HYPERLIPIDEMIA, UNSPECIFIED Status: Chronic (4) Hypertension Code(s): I10 - ESSENTIAL (PRIMARY) HYPERTENSION Status: Chronic Qualifiers: Hypertension type: essential hypertension Qualified Code(s): I10 - Essential (primary) hypertension (5) Hypothyroid Code(s): E03.9 - HYPOTHYROIDISM, UNSPECIFIED Status: Chronic Qualifiers: Hypothyroidism type: unspecified Qualified Code(s): E03.9 - Hypothyroidism , unspecified - Plan plan discussed w/ family, continue antibiotics, PT/OT, out of bed/ambulate Will continue ceftriaxone and follow urine culture. Start apixaban for DVT, continue Plavix and discontinue aspirin. Ambulate patient. Wound care.
[2019-03-08] MEDS ORDERED: Dextrose 5% in Water 1,000 ML IV PRN (18:59)
[2019-03-08] MEDS ORDERED: Dextrose 50% Abboject 50 ML SYRINGE SLOW IVP PRN (18:59)
[2019-03-08] MEDS: Apixaban 5 MG TAB PO SCH (22:01)
[2019-03-09] MEDS: Levothyroxine Sodium 125 MCG TAB PO SCH (06:09)
[2019-03-09] MEDS: Furosemide 20 MG TAB PO SCH (09:03)
[2019-03-09] MEDS: Apixaban 5 MG TAB PO SCH ×2 (09:03→19:51)
[2019-03-09] MEDS: Clopidogrel Bisulfate 75 MG TAB PO SCH (09:03)
[2019-03-09] MEDS: Famotidine/PF 20 mg/2ml Vial SLOW IVP SCH (09:03)
[2019-03-09] MEDS: Amiodarone 200 MG TAB PO SCH (09:03)
[2019-03-09] MEDS: Acetaminophen 325 MG TAB PO PRN ×3 (10:09→19:51)
[2019-03-09 10:32] LABS: #Basophils 0.1 thou/uL (0.0-0.2); #Eosinphils 0.3 thou/uL (0.0-0.7); #Lymphocytes 2.6 thou/uL (1.20-3.40); #Monocytes 0.8 thou/uL (0.11-0.59); #Neutrophils 6.5 thou/uL (1.40-6.50); %Basophils 0.9 % (0.0-1.0); %Eosinophils 3.2 % (0.0-10.0); %Lymphocytes 24.7 % (21.0-51.0); %Monocytes 8.1 % (0.0-10.0); Hemoglobin 9.5 g/dL (12.0-16.0); Mean Corpuscular HGB CONC 32.8 g/dL (32.0-36.0); Mean Corpuscular Hemoglobin 28.2 pg (27.0-31.0); Mean Platelet Volume 8.6 fL (7.4-10.4); Platelet Count 275 thou/uL (130-400); RBC Distribution Width 15.3 % (11.5-14.5); Red Blood Cell (RBC) Count 3.37 mill/uL (4.20-5.40); White Blood Cell (WBC) Count 10.3 thou/uL (4.8-10.8)
[2019-03-09 10:59] LABS: Anion Gap 11 mmol/L (10-20); BUN (Urea Nitrogen) 25 mg/dL (9.8-20.1); Calc. Creatinine Clearance 39 mL/min (70-130); Calcium 8.6 mg/dL (7.8-10.44); Carbon Dioxide 19 mmol/L (23-31); Chloride 110 mmol/L (98-107); Estimated GFR-MDRD 38; Glucose 158 mg/dL (83-110); Potassium 3.7 mmol/L (3.5-5.1); Sodium 136 mmol/L (136-145)
[2019-03-09] MEDS: cefTRIAXone\\ROCEPHIN 1 GM in Sodium Chloride 0.9% 100 ML IVPB SCH (13:13)
--- NOTE | 2019-03-09 17:00 | PDOC.HOSPP ---
- Subjective Encounter Date: 03/09/19 Encounter Time: 09:00 Subjective: Pt seen for followup re: UTI. Feels well, no complaints. - Objective Vital Signs & Weight: Vital Signs (12 hours) Temp Pulse Pulse Pulse Resp BP BP 03/09/19 11:38 97.7 F 70 14 03/09/19 09:56 77 77 137/69 132/63 03/09/19 08:00 97.3 F L 73 17 BP Pulse Ox 03/09/19 11:38 128/80 100 03/09/19 09:56 03/09/19 08:00 133/59 L 100 Weight Admit Weight 175 lb 1 oz Weight 177 lb 8 oz I&O: 03/08/19 03/09/19 03/10/19 06:59 06:59 06:59 Intake Total 500 600 Output Total 150 475 Balance 350 125 Result Diagrams: 03/09/19 09:23 03/09/19 09:23 Additional Labs: Accuchecks 03/09/19 03/09/19 03/08/19 10:09 05:35 20:52 POC Glucose 147 H 119 H 167 H 03/08/19 03/08/19 16:12 05:23 POC Glucose 169 H 119 H Labs and MARs reviewed by me. EKG Reviewed by me: Yes (Tele: NSR) Hospitalist ROS - Review of Systems Cardiovascular: denies: chest pain, palpitations, orthopnea, paroxysmal noc. dyspnea, edema, light headedness Gastrointestinal: denies: nausea, vomiting, abdominal pain, diarrhea, constipation, melena, hematochezia - Medication Medications: Active Medications Generic Name Dose Route Start Last Admin Trade Name Freq PRN Reason Stop Dose Admin Acetaminophen 650 mg 03/07/19 16:51 03/09/19 15:11 Tylenol PO 650 mg Q4H PRN Administration Headache/Fever/Mild Pain (1-3) Amiodarone HCl 200 mg 03/08/19 09:00 03/09/19 09:03 Cordarone PO 200 mg DAILY DEVAN Administration Apixaban 10 mg 03/08/19 21:00 03/09/19 09:03 Eliquis PO 10 mg BID DEVAN Administration Clopidogrel Bisulfate 75 mg 03/08/19 09:00 03/09/19 09:03 Plavix PO 75 mg DAILY DEVAN Administration Famotidine 20 mg 03/08/19 09:00 03/09/19 09:03 Pepcid SLOW IVP 20 mg DAILY DEVAN Administration Furosemide 20 mg 03/09/19 09:00 03/09/19 09:03 Lasix PO 20 mg DAILY DEVAN Administration Ceftriaxone Sodium 1 gm/ 100 mls @ 200 mls/hr 03/08/19 12:00 03/09/19 13:13 Sodium Chloride IVPB 100 mls 1200 DEVAN Administration Levothyroxine Sodium 125 mcg 03/09/19 06:00 03/09/19 06:09 Synthroid PO 125 mcg 0600 DEVAN Administration - Exam General Appearance: NAD Eye: anicteric sclera ENT: moist mucosa Neck: supple, no JVD Heart: RRR, no rubs Respiratory: CTAB Gastrointestinal: soft, non-tender Psychiatric: normal affect, normal behavior Hosp A/P (1) UTI (urinary tract infection) Status: Acute (2) DVT (deep venous thrombosis) Code(s): I82.409 - ACUTE EMBOLISM AND [place] UNSP DEEP VN UNSP LOWER EXTREMITY Status: Acute (3) Dyslipidemia Code(s): E78.5 - HYPERLIPIDEMIA, UNSPECIFIED Status: Chronic (4) Hypertension Code(s): I10 - ESSENTIAL (PRIMARY) HYPERTENSION Status: Chronic Qualifiers: Hypertension type: essential hypertension Qualified Code(s): I10 - Essential (primary) hypertension (5) Hypothyroid Code(s): E03.9 - HYPOTHYROIDISM, UNSPECIFIED Status: Chronic Qualifiers: Hypothyroidism type: unspecified Qualified Code(s): E03.9 - Hypothyroidism , unspecified - Plan continue antibiotics continue ceftriaxone, preliminary urine culture growing E. coli. Continue apixaban. Ambulate patient.
[2019-03-10] MEDS: Levothyroxine Sodium 125 MCG TAB PO SCH (06:23)
[2019-03-10 08:24] LABS: #Basophils 0.1 thou/uL (0.0-0.2); #Eosinphils 0.2 thou/uL (0.0-0.7); #Lymphocytes 2.8 thou/uL (1.20-3.40); #Monocytes 0.9 thou/uL (0.11-0.59); #Neutrophils 5.2 thou/uL (1.40-6.50); %Basophils 0.8 % (0.0-1.0); %Eosinophils 2.5 % (0.0-10.0); %Lymphocytes 30.6 % (21.0-51.0); %Monocytes 9.4 % (0.0-10.0); %Neutrophils 56.7 % (42.0-75.0); Hemoglobin 8.9 g/dL (12.0-16.0); Mean Corpuscular HGB CONC 32.9 g/dL (32.0-36.0); Mean Corpuscular Hemoglobin 28.2 pg (27.0-31.0); Mean Corpuscular Volume 85.7 fL (78.0-98.0); Mean Platelet Volume 8.3 fL (7.4-10.4); Platelet Count 249 thou/uL (130-400); RBC Distribution Width 15.1 % (11.5-14.5); Red Blood Cell (RBC) Count 3.15 mill/uL (4.20-5.40); White Blood Cell (WBC) Count 9.1 thou/uL (4.8-10.8)
[2019-03-10] MEDS: Famotidine/PF 20 mg/2ml Vial SLOW IVP SCH (08:24)
[2019-03-10] MEDS: Clopidogrel Bisulfate 75 MG TAB PO SCH (08:25)
[2019-03-10] MEDS: Furosemide 20 MG TAB PO SCH (08:25)
[2019-03-10] MEDS: Apixaban 5 MG TAB PO SCH ×2 (08:25→20:15)
[2019-03-10] MEDS: Amiodarone 200 MG TAB PO SCH (08:25)
[2019-03-10 08:38] LABS: Anion Gap 13 mmol/L (10-20); BUN (Urea Nitrogen) 29 mg/dL (9.8-20.1); Calc. Creatinine Clearance 41 mL/min (70-130); Calcium 8.4 mg/dL (7.8-10.44); Carbon Dioxide 17 mmol/L (23-31); Chloride 112 mmol/L (98-107); Estimated GFR-MDRD 41; Glucose 125 mg/dL (83-110); Sodium 138 mmol/L (136-145)
[2019-03-10] MEDS: HumaLOG 300 UNITS/3 ML VIAL SC PRN (12:56)
[2019-03-10] MEDS: cefTRIAXone\\ROCEPHIN 1 GM in Sodium Chloride 0.9% 100 ML IVPB SCH (12:58)
--- NOTE | 2019-03-10 16:00 | PDOC.HOSPP ---
- Subjective Subjective: Feels ok. No specific complaints other than she was up late because of a room change. - Objective Vital Signs & Weight: Vital Signs (12 hours) Temp Pulse Resp BP BP Pulse Ox 03/10/19 08:16 97 03/10/19 08:00 97.7 F 70 16 121/75 97 03/10/19 05:02 98.7 F 73 20 140/79 93 L Weight Admit Weight 175 lb 1 oz Weight 177 lb 8 oz I&O: 03/09/19 03/10/19 03/11/19 06:59 06:59 06:59 Intake Total 600 680 Output Total 475 1350 Balance 125 -670 Result Diagrams: 03/10/19 07:50 03/10/19 07:50 Additional Labs: Accuchecks 03/10/19 03/10/19 03/09/19 11:59 05:02 20:25 POC Glucose 162 H 128 H 148 H 03/09/19 17:15 POC Glucose 135 H Hospitalist ROS - Medication Medications: Active Medications Generic Name Dose Route Start Last Admin Trade Name Freq PRN Reason Stop Dose Admin Acetaminophen 650 mg 03/07/19 16:51 03/09/19 19:51 Tylenol PO 650 mg Q4H PRN Administration Headache/Fever/Mild Pain (1-3) Amiodarone HCl 200 mg 03/08/19 09:00 03/10/19 08:25 Cordarone PO 200 mg DAILY DEVAN Administration Apixaban 10 mg 03/08/19 21:00 03/10/19 08:25 Eliquis PO 10 mg BID DEVAN Administration Clopidogrel Bisulfate 75 mg 03/08/19 09:00 03/10/19 08:25 Plavix PO 75 mg DAILY DEVAN Administration Famotidine 20 mg 03/08/19 09:00 03/10/19 08:24 Pepcid SLOW IVP 20 mg DAILY DEVAN Administration Furosemide 20 mg 03/09/19 09:00 03/10/19 08:25 Lasix PO 20 mg DAILY DEVAN Administration Ceftriaxone Sodium 1 gm/ 100 mls @ 200 mls/hr 03/08/19 12:00 03/10/19 12:58 Sodium Chloride IVPB 100 mls 1200 DEVAN Administration Insulin Human Lispro 0 units 03/08/19 18:59 03/10/19 12:56 Humalog SC 2 unit .MILD SLIDING SCALE PRN Administration Mild Correctional Scale Levothyroxine Sodium 125 mcg 03/09/19 06:00 03/10/19 06:23 Synthroid PO 125 mcg 0600 DEVAN Administration Sodium Chloride 10 ml 03/07/19 16:51 03/10/19 08:24 Flush - Normal Saline IVF 10 ml Q12H PRN Administration Saline Flush - Exam General Appearance: NAD, awake alert Heart: RRR, no gallops, no rubs, normal peripheral pulses, II/IV Respiratory: CTAB, no wheezes, no rales, no ronchi, normal chest expansion, no tachypnea, normal percussion Gastrointestinal: soft, non-tender, non-distended, normal bowel sounds, no palpable masses, no hepatomegaly, no splenomegaly, no bruit Extremities: no cyanosis, no clubbing, 1+ LE edema Skin: normal turgor Musculoskeletal: generalized weakness Psychiatric: normal affect, normal behavior, A&O x 3 Hosp A/P (1) DVT (deep venous thrombosis) Code(s): I82.409 - ACUTE EMBOLISM AND [place]BOS UNSP DEEP VN UNSP LOWER EXTREMITY Status: Acute (2) UTI (urinary tract infection) Status: Acute (3) Weakness generalized Code(s): R53.1 - WEAKNESS Status: Acute (4) Aortic stenosis, severe Code(s): I35.0 - NONRHEUMATIC AORTIC (VALVE) STENOSIS Status: Chronic (5) Atrial fibrillation Code(s): I48.91 - UNSPECIFIED ATRIAL FIBRILLATION Status: Chronic Qualifiers: Atrial fibrillation type: paroxysmal (6) CAD (coronary artery disease) Code(s): I25.10 - ATHSCL HEART DISEASE OF [place] CORONARY ARTERY W/O ANG PCTRS Status: Chronic Qualifiers: Coronary Disease-Associated Artery/Lesion type: [place] artery [place] vs. transplanted heart: [place] heart Associated angina: without angina Qualified Code(s): I25.10 - Atherosclerotic heart disease of [place] coronary artery without angina pectoris (7) CKD (chronic kidney disease) stage 3, GFR 30-59 ml/min Code(s): N18.3 - CHRONIC KIDNEY DISEASE, STAGE 3 (MODERATE) Status: Chronic (8) DM2 (diabetes mellitus, type 2) Status: Chronic Qualifiers: Diabetes mellitus alf insulin use: without intermediate frame tender use Diabetes mellitus complication status: with kidney complications Chronic kidney disease stage: stage 3 (moderate) (9) Dyslipidemia Code(s): E78.5 - HYPERLIPIDEMIA, UNSPECIFIED Status: Chronic (10) Hypertension Code(s): I10 - ESSENTIAL (PRIMARY) HYPERTENSION Status: Chronic Qualifiers: Hypertension type: essential hypertension Qualified Code(s): I10 - Essential (primary) hypertension (11) Hypothyroid Code(s): E03.9 - HYPOTHYROIDISM, UNSPECIFIED Status: Chronic Qualifiers: Hypothyroidism type: unspecified Qualified Code(s): E03.9 - Hypothyroidism , unspecified (12) Physical debility Code(s): R53.81 - OTHER MALAISE Status: Chronic (13) Acute on chronic systolic CHF (congestive heart failure) Code(s): I50.23 - ACUTE ON CHRONIC SYSTOLIC (CONGESTIVE) HEART FAILURE Status : Resolved - Plan She is not a candidate for TAVR until she can get up and take a few steps on her own. Too weak to do that right now. Will be going back home with HH and HPT. On anticoag for the DVT. On abx for UTI, but growing E coli. She has a decent chance of having a resistant organism. Will keep here until we get a better ID and sens. Once that is is known and there is an oral option, she will be able to DC.
[2019-03-11] MEDS: HumaLOG 300 UNITS/3 ML VIAL SC PRN (05:23)
[2019-03-11] MEDS: Levothyroxine Sodium 125 MCG TAB PO SCH (05:23)
[2019-03-11 07:34] LABS: Anion Gap 14 mmol/L (10-20); BUN (Urea Nitrogen) 33 mg/dL (9.8-20.1); Calc. Creatinine Clearance 39 mL/min (70-130); Calcium 8.4 mg/dL (7.8-10.44); Carbon Dioxide 14 mmol/L (23-31); Chloride 113 mmol/L (98-107); Estimated GFR-MDRD 38; Glucose 120 mg/dL (83-110); Potassium 4.1 mmol/L (3.5-5.1); Sodium 137 mmol/L (136-145)
[2019-03-11 07:48] LABS: Hemoglobin 8.5 g/dL (12.0-16.0); Mean Corpuscular HGB CONC 32.5 g/dL (32.0-36.0); Mean Corpuscular Hemoglobin 29.2 pg (27.0-31.0); Mean Corpuscular Volume 89.7 fL (78.0-98.0); Mean Platelet Volume 8.6 fL (7.4-10.4); Platelet Count 279 thou/uL (130-400); RBC Distribution Width 15.6 % (11.5-14.5); Red Blood Cell (RBC) Count 2.92 mill/uL (4.20-5.40)
[2019-03-11] MEDS: Furosemide 20 MG TAB PO SCH (08:28)
[2019-03-11] MEDS: Clopidogrel Bisulfate 75 MG TAB PO SCH (08:28)
[2019-03-11] MEDS: Apixaban 5 MG TAB PO SCH (08:28)
[2019-03-11] MEDS: Amiodarone 200 MG TAB PO SCH (08:28)
[2019-03-11] MEDS: Famotidine/PF 20 mg/2ml Vial SLOW IVP SCH (08:28)
[2019-03-11 08:45] LABS: Anisocytosis SLIGHT = 6-15 cells (100X) (0-5/hpf); Burr Cells SLIGHT = 2-5 cells (100X) (0-1/hpf); Elliptocytes SLIGHT = 2-5 cells (100X) (0-1/hpf); Hypochromia SLIGHT = 6-15 cells (100X) (0-5/hpf); Lymphocytes 20 % (21-51); MDiff Complete? YES; Monocytes 8 % (0-10); Neutrophil 72 % (42-75); Platelet Morphology Comment Appears Adequate; White Blood Cell (WBC) Count 10.3 thou/uL (4.8-10.8)
[2019-03-11] MEDS: Ondansetron PF 4 MG/2 ML Vial IVP PRN (10:39)
[2019-03-11] MEDS ORDERED: Promethazine HCl 12.5 MG in Sodium Chloride 0.9% 50 ML IVPB PRN (12:10)
[2019-03-11] MEDS ORDERED: Promethazine HCl 12.5 MG in Sodium Chloride 0.9% 50 ML IVPB SCH (12:30)
--- NOTE | 2019-03-11 12:55 | CT ---
EXAM: Brain CT scan Without contrast: HISTORY: Acute onset headache, nausea, vomiting, patient on ankle ligaments COMPARISON: 03/07/2019 FINDINGS: Overall stable exam. Atrophy and chronic white matter ischemic change. No focal mass or midline shift. No intra or extra-axial hemorrhage. The visualized sinuses and mastoids are clear of acute process. IMPRESSION: No mass or bleed or other significant acute intracranial process.
[2019-03-11] MEDS: cefTRIAXone\\ROCEPHIN 1 GM in Sodium Chloride 0.9% 100 ML IVPB SCH (13:18)
[2019-03-11 14:33] LABS: Hemoglobin 8.2 g/dL (12.0-16.0)
--- NOTE | 2019-03-11 15:44 | PDOC.HOSPP ---
- Subjective Subjective: Sat up on the side of the bed today and had sudden onset of MELCHOR, N/V. Then had a bloody BM. I came to see her promptly and she was still dry heaving and complaining of a frontal headache. Phenergan ordered and head CT. Per nurse, she is sleeping now. - Objective Vital Signs & Weight: Vital Signs (12 hours) Temp Pulse Resp BP Pulse Ox 03/11/19 11:30 107/71 03/11/19 11:01 97.5 F L 77 20 92/52 L 97 03/11/19 08:25 100 03/11/19 07:27 97.9 F 83 18 120/72 100 Weight Admit Weight 175 lb 1 oz Weight 177 lb 8 oz I&O: 03/10/19 03/11/19 03/12/19 06:59 06:59 06:59 Intake Total 680 810 Output Total 1350 850 Balance -670 -40 Result Diagrams: 03/11/19 14:13 03/11/19 06:59 Additional Labs: Accuchecks 03/11/19 03/11/19 03/10/19 11:34 04:27 20:14 POC Glucose 227 H 159 H 167 H 03/10/19 16:32 POC Glucose 144 H Hospitalist ROS - Medication Medications: Active Medications Generic Name Dose Route Start Last Admin Trade Name Freq PRN Reason Stop Dose Admin Acetaminophen 650 mg 03/07/19 16:51 03/09/19 19:51 Tylenol PO 650 mg Q4H PRN Administration Headache/Fever/Mild Pain (1-3) Amiodarone HCl 200 mg 03/08/19 09:00 03/11/19 08:28 Cordarone PO 200 mg DAILY DEVAN Administration Clopidogrel Bisulfate 75 mg 03/08/19 09:00 03/11/19 08:28 Plavix PO 75 mg DAILY DEVAN Administration Famotidine 20 mg 03/08/19 09:00 03/11/19 08:28 Pepcid SLOW IVP 20 mg DAILY DEVAN Administration Furosemide 20 mg 03/09/19 09:00 03/11/19 08:28 Lasix PO 20 mg DAILY DEVAN Administration Ceftriaxone Sodium 1 gm/ 100 mls @ 200 mls/hr 03/08/19 12:00 03/11/19 13:18 Sodium Chloride IVPB 100 mls 1200 DEVAN Administration Insulin Human Lispro 0 units 03/08/19 18:59 03/11/19 05:23 Humalog SC 2 unit .MILD SLIDING SCALE PRN Administration Mild Correctional Scale Levothyroxine Sodium 125 mcg 03/09/19 06:00 03/11/19 05:23 Synthroid PO 125 mcg 0600 DEVAN Administration Ondansetron HCl 4 mg 03/07/19 16:51 03/11/19 10:39 Zofran IVP 4 mg Q6H PRN Administration Nausea/Vomiting Sodium Chloride 10 ml 03/07/19 16:51 03/11/19 08:28 Flush - Normal Saline IVF 10 ml Q12H PRN Administration Saline Flush Sodium Chloride 10 ml 03/07/19 16:51 03/11/19 12:54 Flush - Normal Saline IVF 10 ml PRN PRN Administration Saline Flush - Exam General - other findings: Pale, ill-appearing Heart: no murmur, no gallops, no rubs, normal peripheral pulses, irregular Respiratory: CTAB, no wheezes, no rales, no ronchi, normal chest expansion, no tachypnea, normal percussion Gastrointestinal: soft, non-distended, normal bowel sounds, no palpable masses, tender to palpation (upper abdomen. Mild) Extremities: no cyanosis, no clubbing Skin: normal turgor Musculoskeletal: generalized weakness Psychiatric - other findings: Tearful. Hosp A/P (1) DVT (deep venous thrombosis) Code(s): I82.409 - ACUTE EMBOLISM AND THOMBOS UNSP DEEP VN UNSP LOWER EXTREMITY Status: Acute (2) UTI (urinary tract infection) Status: Acute (3) Weakness generalized Code(s): R53.1 - WEAKNESS Status: Acute (4) Aortic stenosis, severe Code(s): I35.0 - NONRHEUMATIC AORTIC (VALVE) STENOSIS Status: Chronic (5) Atrial fibrillation Code(s): I48.91 - UNSPECIFIED ATRIAL FIBRILLATION Status: Chronic Qualifiers: Atrial fibrillation type: paroxysmal (6) CAD (coronary artery disease) Code(s): I25.10 - ATHSCL HEART DISEASE OF [place] CORONARY ARTERY W/O ANG PCTRS Status: Chronic Qualifiers: Coronary Disease-Associated Artery/Lesion type: [place] artery [place] vs. transplanted heart: [place] heart Associated angina: without angina Qualified Code(s): I25.10 - Atherosclerotic heart disease of [place] coronary artery without angina pectoris (7) CKD (chronic kidney disease) stage 3, GFR 30-59 ml/min Code(s): N18.3 - CHRONIC KIDNEY DISEASE, STAGE 3 (MODERATE) Status: Chronic (8) DM2 (diabetes mellitus, type 2) Status: Chronic Qualifiers: Diabetes mellitus [facility] insulin use: without [facility] use Diabetes mellitus complication status: with kidney complications Chronic kidney disease stage: stage 3 (moderate) (9) Dyslipidemia Code(s): E78.5 - HYPERLIPIDEMIA, UNSPECIFIED Status: Chronic (10) Hypertension Code(s): I10 - ESSENTIAL (PRIMARY) HYPERTENSION Status: Chronic Qualifiers: Hypertension type: essential hypertension Qualified Code(s): I10 - Essential (primary) hypertension (11) Hypothyroid Code(s): E03.9 - HYPOTHYROIDISM, UNSPECIFIED Status: Chronic Qualifiers: Hypothyroidism type: unspecified Qualified Code(s): E03.9 - Hypothyroidism , unspecified (12) Physical debility Code(s): R53.81 - OTHER MALAISE Status: Chronic (13) Acute on chronic systolic CHF (congestive heart failure) Code(s): I50.23 - ACUTE ON CHRONIC SYSTOLIC (CONGESTIVE) HEART FAILURE Status : Resolved (14) Anemia Code(s): D64.9 - ANEMIA, UNSPECIFIED Status: Acute (15) Lower GI bleed Code(s): K92.2 - GASTROINTESTINAL HEMORRHAGE, UNSPECIFIED Status: Acute (16) Nausea & vomiting Code(s): R11.2 - NAUSEA WITH VOMITING, UNSPECIFIED Status: Acute (17) Headache Code(s): R51 - HEADACHE Status: Acute - Plan She is not a candidate for TAVR until she can get up and take a few steps on her own. Too weak to do that right now. Will be going back home with HH and HPT. On anticoag for the DVT. On abx for UTI, but growing E coli. She has a decent chance of having a resistant organism. Will keep here until we get a better ID and sens. Once that is is known and there is an oral option, she will be able to DC. Hematochezia today. Hemoglobin trending down. Holding anticoagulation. Recheck H/H in am. GI consult in am. Difficult situation given the need for anticoagulation for afib and DVT, but contra-indicated now with bleeding. May need an IVC filter. N/V. May be from the GI distress from the hematochezia and cramping. Seems to be better with the phenergan. Zofran did not resolve it. CT head was negative.
[2019-03-12] MEDS: Levothyroxine Sodium 125 MCG TAB PO SCH (05:14)
[2019-03-12 06:14] LABS: #Basophils 0.1 thou/uL (0.0-0.2); #Eosinphils 0.2 thou/uL (0.0-0.7); #Lymphocytes 3.5 thou/uL (1.20-3.40); #Neutrophils 7.2 thou/uL (1.40-6.50); %Basophils 0.8 % (0.0-1.0); %Eosinophils 1.9 % (0.0-10.0); %Lymphocytes 29.2 % (21.0-51.0); %Monocytes 7.9 % (0.0-10.0); %Neutrophils 60.2 % (42.0-75.0); Hemoglobin 7.2 g/dL (12.0-16.0); Mean Corpuscular HGB CONC 31.7 g/dL (32.0-36.0); Mean Corpuscular Hemoglobin 27.4 pg (27.0-31.0); Mean Corpuscular Volume 86.4 fL (78.0-98.0); Mean Platelet Volume 8.3 fL (7.4-10.4); Platelet Count 280 thou/uL (130-400); RBC Distribution Width 15.6 % (11.5-14.5); Red Blood Cell (RBC) Count 2.62 mill/uL (4.20-5.40)
[2019-03-12 06:24] LABS: Anion Gap 15 mmol/L (10-20); BUN (Urea Nitrogen) 39 mg/dL (9.8-20.1); Calc. Creatinine Clearance 36 mL/min (70-130); Calcium 8.6 mg/dL (7.8-10.44); Carbon Dioxide 17 mmol/L (23-31); Chloride 111 mmol/L (98-107); Estimated GFR-MDRD 35; Glucose 99 mg/dL (83-110); Potassium 4.5 mmol/L (3.5-5.1); Sodium 138 mmol/L (136-145)
[2019-03-12] MEDS: Amiodarone 200 MG TAB PO SCH (08:37)
[2019-03-12] MEDS: Furosemide 20 MG TAB PO SCH (08:37)
[2019-03-12] MEDS: Clopidogrel Bisulfate 75 MG TAB PO SCH (08:38)
[2019-03-12] MEDS: Famotidine/PF 20 mg/2ml Vial SLOW IVP SCH (08:38)
--- NOTE | 2019-03-12 08:46 | PDOC.HOSPP ---
- Subjective Encounter Date: 03/12/19 Encounter Time: 08:45 Subjective: Feeling better today. No nausea. Headache resolved. Eager to go home. - Objective Vital Signs & Weight: Vital Signs (12 hours) Temp Pulse Resp BP BP Pulse Ox 03/12/19 08:00 98.7 F 71 18 106/65 98 03/12/19 04:00 97.9 F 72 18 115/70 100 03/11/19 23:51 98.2 F 63 18 101/62 99 Weight Admit Weight 175 lb 1 oz Weight 177 lb 8 oz I&O: 03/11/19 03/12/19 03/13/19 06:59 06:59 06:59 Intake Total 810 470 Output Total 850 750 Balance -40 -280 Result Diagrams: 03/12/19 05:34 03/12/19 05:34 Additional Labs: Accuchecks 03/12/19 03/11/19 03/11/19 04:10 19:51 16:19 POC Glucose 114 H 129 H 169 H 03/11/19 11:34 POC Glucose 227 H Hospitalist ROS - Medication Medications: Active Medications Generic Name Dose Route Start Last Admin Trade Name Freq PRN Reason Stop Dose Admin Acetaminophen 650 mg 03/07/19 16:51 03/09/19 19:51 Tylenol PO 650 mg Q4H PRN Administration Headache/Fever/Mild Pain (1-3) Amiodarone HCl 200 mg 03/08/19 09:00 03/12/19 08:37 Cordarone PO 200 mg DAILY DEVAN Administration Clopidogrel Bisulfate 75 mg 03/08/19 09:00 03/12/19 08:38 Plavix PO 75 mg DAILY DEVAN Administration Famotidine 20 mg 03/08/19 09:00 03/12/19 08:38 Pepcid SLOW IVP 20 mg DAILY DEVAN Administration Furosemide 20 mg 03/09/19 09:00 03/12/19 08:37 Lasix PO 20 mg DAILY DEVAN Administration Ceftriaxone Sodium 1 gm/ 100 mls @ 200 mls/hr 03/08/19 12:00 03/11/19 13:18 Sodium Chloride IVPB 100 mls 1200 DEVAN Administration Insulin Human Lispro 0 units 03/08/19 18:59 03/11/19 05:23 Humalog SC 2 unit .MILD SLIDING SCALE PRN Administration Mild Correctional Scale Levothyroxine Sodium 125 mcg 03/09/19 06:00 03/12/19 05:14 Synthroid PO 125 mcg 0600 DEVAN Administration Ondansetron HCl 4 mg 03/07/19 16:51 03/11/19 10:39 Zofran IVP 4 mg Q6H PRN Administration Nausea/Vomiting Sodium Chloride 10 ml 03/07/19 16:51 03/11/19 08:28 Flush - Normal Saline IVF 10 ml Q12H PRN Administration Saline Flush Sodium Chloride 10 ml 03/07/19 16:51 03/11/19 12:54 Flush - Normal Saline IVF 10 ml PRN PRN Administration Saline Flush - Exam General Appearance: NAD, awake alert Heart: RRR, II/IV Respiratory: CTAB, no wheezes Respiratory - other findings: Minimal bibasilar rales. Gastrointestinal: soft, non-tender, non-distended, normal bowel sounds, no palpable masses, no hepatomegaly, no splenomegaly, no bruit Extremities: no cyanosis, no clubbing, no edema Skin: normal turgor Musculoskeletal: generalized weakness Psychiatric - other findings: Tearful at times regarding medical condition. Hosp A/P (1) DVT (deep venous thrombosis) Code(s): I82.409 - ACUTE EMBOLISM AND THOMBOS UNSP DEEP VN UNSP LOWER EXTREMITY Status: Acute (2) UTI (urinary tract infection) Status: Acute (3) Weakness generalized Code(s): R53.1 - WEAKNESS Status: Acute (4) Aortic stenosis, severe Code(s): I35.0 - NONRHEUMATIC AORTIC (VALVE) STENOSIS Status: Chronic (5) Atrial fibrillation Code(s): I48.91 - UNSPECIFIED ATRIAL FIBRILLATION Status: Chronic Qualifiers: Atrial fibrillation type: paroxysmal (6) CAD (coronary artery disease) Code(s): I25.10 - ATHSCL HEART DISEASE OF [place] CORONARY ARTERY W/O ANG PCTRS Status: Chronic Qualifiers: Coronary Disease-Associated Artery/Lesion type: [place] artery [place] vs. transplanted heart: [place] heart Associated angina: without angina Qualified Code(s): I25.10 - Atherosclerotic heart disease of [place] coronary artery without angina pectoris (7) CKD (chronic kidney disease) stage 3, GFR 30-59 ml/min Code(s): N18.3 - CHRONIC KIDNEY DISEASE, STAGE 3 (MODERATE) Status: Chronic (8) DM2 (diabetes mellitus, type 2) Status: Chronic Qualifiers: Diabetes mellitus assisted insulin use: without exterminator helper termite use Diabetes mellitus complication status: with kidney complications Chronic kidney disease stage: stage 3 (moderate) (9) Dyslipidemia Code(s): E78.5 - HYPERLIPIDEMIA, UNSPECIFIED Status: Chronic (10) Hypertension Code(s): I10 - ESSENTIAL (PRIMARY) HYPERTENSION Status: Chronic Qualifiers: Hypertension type: essential hypertension Qualified Code(s): I10 - Essential (primary) hypertension (11) Hypothyroid Code(s): E03.9 - HYPOTHYROIDISM, UNSPECIFIED Status: Chronic Qualifiers: Hypothyroidism type: unspecified Qualified Code(s): E03.9 - Hypothyroidism , unspecified (12) Physical debility Code(s): R53.81 - OTHER [place] Status: Chronic (13) Acute on chronic systolic CHF (congestive heart failure) Code(s): I50.23 - ACUTE ON CHRONIC SYSTOLIC (CONGESTIVE) HEART FAILURE Status : Resolved (14) Anemia Code(s): D64.9 - ANEMIA, UNSPECIFIED Status: Acute (15) Lower GI bleed Code(s): K92.2 - GASTROINTESTINAL HEMORRHAGE, UNSPECIFIED Status: Acute (16) Nausea & vomiting Code(s): R11.2 - NAUSEA WITH VOMITING, UNSPECIFIED Status: Acute (17) Headache Code(s): R51 - HEADACHE Status: Acute - Plan She is not a candidate for TAVR until she can get up and take a few steps on her own. Too weak to do that right now. Will be going back home with HH and [facility]. Was on anticoag for the DVT. That has been held now due to GIB. No going to be a candidate for anticoagulation. Consult [facility] for IVC filter. On abx for UTI, but growing E coli, Enterococcus. On Rocephin, but given the Enterococcus, will repeat UA and consult ID for recs. Hematochezia yesterday. Hemoglobin trending down. Holding anticoagulation. Follow h/h. GI consult. Suspect we will just want to continue to monitor hgb over time off anticoagulants. Her heart situation and general debility make her a poor candidate for procedures. N/V resolved. Headache resolved. CT head was negative. Possible DC as early as tomorrow if all goes well. Will need stable hgb, IVC filter, GI consult and Abx plan, home health.
[2019-03-12] MEDS: cefTRIAXone\\ROCEPHIN 1 GM in Sodium Chloride 0.9% 100 ML IVPB SCH (14:10)
--- NOTE | 2019-03-12 14:43 | CON ---
DATE OF CONSULTATION: This is an 88-year-old female who is in the process of undergoing TAVR. She previously underwent stenting of her coronary arteries about 2003 and then this summer underwent more stenting in anticipation that she would be a candidate for a TAVR. Unfortunately, due to rather profound weakness, the TAVR has not taken place. She has presented to the emergency room from the [place] with weakness and was found to have a hemoglobin of 7.2, and significant lower extremity edema with a previous diagnosis of right lower extremity DVT. Venous ultrasound demonstrated bilateral DVT and she is not felt to be a candidate for long-term anticoagulation due to her anemia and bleeding tendencies including some blood in her urine on admission. Her past medical history includes the above-noted coronary artery disease. She has been on aspirin and Plavix and had been on Eliquis in the past. Otherwise, her current medications included Synthroid, Lasix 20 a day, aspirin, Plavix, and amiodarone 200 a day. She is currently receiving 1 unit of packed red cells. Her baseline creatinine is 1.4. Sugars have been fairly well controlled on this admission. On examination, she is an elderly appearing lady in bed, but mentally alert and answers questions easily on her own. She has regular rate and rhythm at this time with a harsh 3/6 systolic murmur. Her abdomen is obese and nontender. Extremities, she currently has no obvious edema of her lower extremities. I have gone over the situation with the patient and family. My understanding is that she cannot be on an anticoagulation, probably has an old right DVT and perhaps a new left DVT. She is at risk for a pulmonary embolus since anticoagulation is not an option. I have gone over placement of a permanent inferior vena cava filter through the jugular vein and informed consent has been obtained and we will plan on doing this tomorrow morning. Job ID: [id number]
[2019-03-12 14:52] LABS: Bilirubin Negative (Negative); Blood, Urine 1+ (Negative); Clarity Turbid (Clear); Glucose, Urine (Dipstick) Normal (Negative); Leukocyte Negative Leu/uL (Negative); Nitrite Negative (Negative); Protein, Urine (Dipstick) Negative (Neg-Trace); RBC/HPF 0-3 HPF (0-3); Urobilinogen Normal mg/dL (Less than 2); WBC/HPF 0-3 HPF (0-3)
[2019-03-12 15:03] LABS: Bacteria/HPF None Seen HPF (None Seen)
--- NOTE | 2019-03-12 15:35 | CON ---
DATE OF CONSULTATION: HISTORY OF PRESENT ILLNESS: Ms. Rivas was asked to see by Dr. Murray for episode of hematochezia. Apparently yesterday, she had an episode of vomiting. She threw up most of the thing she ate and then had cramps and diarrhea and had some blood in her stool. She had no further bleeding after that. She did have a drop in hemoglobin, although it is very minimal from 8.9 to 8.5, and this morning it is 7.2. Her white count went up to 12. Her baseline hemoglobin seems to be back in July at 11 to 12, but really since October, it has been running in the 7 to 10 range. She has had issues with a DVT in her legs and was on Eliquis, then more recently, she was switched over apparently to Plavix and aspirin. She has had some issues with severe aortic stenosis, heart failure, and chronic atrial fibrillation as well. She was in the hospital here for about a month, leaving on 02/05/2019. She was sent to [place] apparently some point in time for transarterial valve replacement of the aortic valve, but had to have cardiac stents, that was on hold. She was in rehab for a time, then ultimately was back in the hospital for about a month and then went home on amiodarone, aspirin, Cipro, Plavix, furosemide, and levothyroxine. She was readmitted here on 03/07 secondary to the generalized weakness and lightheadedness for several weeks. I talked with the nurses. There had been no further bleeding since yesterday. REVIEW OF SYSTEMS: Notable for 30-pound weight loss in 2 to 3 months. She has felt this is related to the food she was given in rehab. She denies any abdominal pain now. She notes difficulty with ambulation and is fatigued with minimal exertion. She cannot get out of bed without help. PAST MEDICAL HISTORY: 1. Atrial fibrillation. 2. Coronary artery disease. 3. [facility] with stents x3 in the past, and more recently, 4 new stents placed in [place]. 4. She had severe aortic stenosis and EF about 35%. 5. Prior strokes. 6. TIAs. 7. Chronic anemia. 8. Diabetes. 9. Hypothyroidism. 10. History of DVTs. PAST SURGICAL HISTORY: 1. Cataract removal. 2. Hysterectomy. 3. Also with EGD in 2011. 4. Previous cardiac disease as noted above. FAMILY HISTORY: Coronary artery disease and diabetes. SOCIAL HISTORY: The patient has never smoked. She does not drink. She lives with family. She is pretty much bedbound. MEDICATIONS: Presently: 1. Acetaminophen. 2. Amiodarone. 3. Rocephin. 4. Plavix. 5. Pepcid. 6. Lasix. 7. Glucagon. 8. Insulin. 9. Synthroid. 10. Zofran. Home medications: 1. Levothyroxine. 2. Furosemide. 3. Plavix. 4. Aspirin. 5. Amiodarone. PHYSICAL EXAMINATION: GENERAL: The patient is resting comfortably in bed. She is alert and oriented. She is pale. HEENT: Oropharynx without lesions. NECK: Supple. No adenopathy. LUNGS: Clear. HEART: Regular rate and rhythm without rubs or murmurs. ABDOMEN: Soft with active bowel sounds. EXTREMITIES: Edema bilaterally. Sacral decubitus. RECTAL: Brown stool with no blood. VITAL SIGNS: Temperature is 98, pulse 71, and blood pressure 106/65. LABORATORY STUDIES: White count 12, hemoglobin 7.2 today, and platelet count 280. INR is 2.2 on 11/29/2018 and it is not checked this admission. Sodium 138, potassium 4.5, BUN and creatinine are 39 and 1.42, and calcium 9. Magnesium 2. AST 22, ALT 14, alkaline phosphatase 94, and albumin is 3.4. On 11/30/18, TIBC was 294, ferritin was 37, . ASSESSMENT: This is an 88-year-old female with severe comorbidities of heart failure, recent diagnosis of deep vein thrombosis, and severe aortic stenosis as well as coronary artery disease, who was admitted for failure to thrive. She is debilitated and does not get very well to the point where she has developed a sacral decubitus. She was readmitted for failure to thrive, and yesterday had an episode of hematochezia associated with nausea and vomiting. She did have a mild drop in hemoglobin from her baseline of around 9 to 7.2. She has had no further bleeding and has brown stool on rectal exam. At this time, there are no signs of acute gastrointestinal bleed. 1. New diagnosis of bilateral deep vein thromboses. 2. History of atrial fibrillation. 3. History of coronary artery disease with recent stents. 4. History of severe aortic stenosis. 5. History of congestive heart failure with ejection fraction of 35%. RECOMMENDATIONS: 1. I recommend PPI therapy for ulcer prophylaxis. She has had ulcers in the past. In 2011 when she had ulcer, she refused colonoscopy screening at that time. Presently, she is a very poor candidate for endoscopy. She is not acutely bleeding and I would not embark on any endoscopy in this setting. She is very debilitated and has severe cardiopulmonary disease. It may be reasonable to consider IVC filter placement in this individual's bilateral DVTs. I do not think she had a significant GI bleed as she has brown stool on rectal examination today. This is most likely rectal outlet, could have been related to straining with her emesis. There was no history of hematemesis. 2. At this time, I will follow from a distance. If I can be of any further assistance in her care or if there are any signs of acute GI hemorrhage, please do not hesitate to contact me. Job ID: [id number]
[2019-03-12] MEDS: Acetaminophen 325 MG TAB PO PRN (18:30)
[2019-03-13] MEDS: Levothyroxine Sodium 125 MCG TAB PO SCH (05:50)
[2019-03-13 05:58] LABS: #Basophils 0.1 thou/uL (0.0-0.2); #Eosinphils 0.2 thou/uL (0.0-0.7); #Lymphocytes 1.9 thou/uL (1.20-3.40); #Neutrophils 12.1 thou/uL (1.40-6.50); %Basophils 0.4 % (0.0-1.0); %Eosinophils 1.5 % (0.0-10.0); %Lymphocytes 12.4 % (21.0-51.0); %Monocytes 6.7 % (0.0-10.0); %Neutrophils 78.9 % (42.0-75.0); Mean Corpuscular Hemoglobin 28.9 pg (27.0-31.0); Mean Corpuscular Volume 87.6 fL (78.0-98.0); Mean Platelet Volume 8.2 fL (7.4-10.4); Platelet Count 251 thou/uL (130-400); RBC Distribution Width 14.6 % (11.5-14.5); Red Blood Cell (RBC) Count 2.76 mill/uL (4.20-5.40); White Blood Cell (WBC) Count 15.3 thou/uL (4.8-10.8)
[2019-03-13 06:19] LABS: Anion Gap 13 mmol/L (10-20); BUN (Urea Nitrogen) 43 mg/dL (9.8-20.1); Calc. Creatinine Clearance 32 mL/min (70-130); Calcium 8.5 mg/dL (7.8-10.44); Carbon Dioxide 21 mmol/L (23-31); Chloride 109 mmol/L (98-107); Estimated GFR-MDRD 31; Glucose 133 mg/dL (83-110); Potassium 3.9 mmol/L (3.5-5.1); Sodium 139 mmol/L (136-145)
[2019-03-13] MEDS ORDERED: Heparin (Artline) 500 ML ONE (08:07)
[2019-03-13] MEDS: Amiodarone 200 MG TAB PO SCH (09:45)
[2019-03-13] MEDS: Acetaminophen 325 MG TAB PO PRN (09:46)
[2019-03-13] MEDS: Famotidine 20 MG TAB PO SCH (09:46)
[2019-03-13] MEDS: Furosemide 20 MG TAB PO SCH (09:46)
[2019-03-13] MEDS: Clopidogrel Bisulfate 75 MG TAB PO SCH (09:46)
--- NOTE | 2019-03-13 09:51 | OP ---
DATE OF PROCEDURE: 03/13/2019 PREOPERATIVE DIAGNOSIS: Deep vein thrombosis with contraindication to anticoagulation. PROCEDURE PERFORMED: Placement of an inferior vena cava TRAPEASE CORDIS filter via the right jugular vein. CONTRAST: 5 mL. FLUORO: 1.3 minutes. DESCRIPTION OF PROCEDURE: After prepping and draping, 1% lidocaine was used to infiltrate the neck, following which under ultrasound guidance, the jugular vein was punctured and a wire placed under guidance with fluoroscopy into the left common iliac vein. The dilator and sheath were advanced. Contrast venography obtained, showing bilateral renal veins as well as inferior vena cava, which measured less than 20 mm. Following this, the filter was deployed about 2 cm below the renal vein. The patient tolerated the procedure. Job ID: [id number]
[2019-03-13] MEDS ORDERED: Iopamidol 370 76% 50 ML VIAL FS ONE (09:52)
--- NOTE | 2019-03-13 12:53 | PQF ---
CLINICAL DOCUMENTATION IMPROVEMENT CLARIFICATION FORM: ICD-10 Updated PLEASE DO AN ADDENDUM TO THE PROGRESS NOTE WITH ANY DOCUMENTATION UPDATES OR ADDITIONS AND CARRY THROUGH TO DC SUMMARY. THANK YOU. DATE: 03/13/2019 ATTN: Dr. Murray Please exercise your independent, professional judgment in responding to the clarification form. Clinical indicators are provided on the bottom of this form for your review Please check appropriate box(s): [ x ] I (concur) with the Wound Care findings as stated below. [ ] Pressure Ulcer: [ ] Location: POA: [ ] Yes [ ] No[ ] Unable to determine Stage (I to IV): __(Left__Right__Bilateral__N/A__) [ ] Location: POA: [ ] Yes [ ] No[ ] Unable to determine Stage (I to IV): __(Left__Right__Bilateral__N/A__) [ ] Deep tissue injury [ ] Other diagnosis [ ] Unable to determine In addition, please specify: Present on Admission (POA): [ ] Yes [ ] No [ ] Unable to determine For continuity of documentation, please document condition throughout progress notes and discharge summary. Thank You. CLINICAL INDICATORS - SIGNS / SYMPTOMS / LABS / RESULTS AND LOCATION IN MR WOUND CARE ASSESSMENT: 03/08/2019 Lower Sacral Pressure Ulcer Stage III Upper Sacral Pressure Ulcer Stage III 03/12 ([place]) She is debilitated and does not get very well to the point where she has developed a sacral decubitus. RISKS: H&P 03/07: 88 yr old present with generalized weakness and light headedness. She was discharged from in rehab 2 weeks ago. Last admitted here from 01/12-02/05 with CHF exac. Physical debility. TREATMENT: Order 03/07: Consult Wound Care Eval/Treat Wound Care Assessment 03/08: Follow Nursing Wound Care Protocol Pre-ulcer skin changes limited to persistent focal edema (Stage 1) Abrasion, blister, partial thickness skin loss involving epidermis and/or dermis (Stage 2) Full thickness skin loss involving damage or necrosis of SQ tissue. (Stage 3) Necrosis of soft tissue through to underlying muscle, tendon, or bone. (Stage 4) Purple or maroon discolored skin or blood filled blister PRESSURE ULCER STAGES Stage I: Erythema Stage II: Partial thickness Stage III: Full thickness Stage IV: Necrosis to muscle/bone Thank you, Kelsey (This form is maintained as a part of the permanent medical record) 2014 [email or web address] All Rights Reserved Kelsey Galindo, RN, BSN [email or web address] Office: [phone] [facility]
[2019-03-13 14:04] VITALS: BMI 29.5
[2019-03-13] MEDS: cefTRIAXone\\ROCEPHIN 1 GM in Sodium Chloride 0.9% 100 ML IVPB SCH (14:06)
--- NOTE | 2019-03-13 19:14 | PRG ---
DATE OF SERVICE: 03/13/2019 SUBJECTIVE: Ms. Rivas had an IVC filter placed today. She has had 4 stools, which were maroon per the nurses. OBJECTIVE: VITAL SIGNS: Temperature is 98.5, pulse 78, blood pressure is 118/72. ABDOMEN: Soft, nontender. There is no rebound. There is no guarding. LABORATORY DATA: White count 15. Hemoglobin is 8, it was 7.2 yesterday and 8.2 on the 15th. Platelet count 251. BUN and creatinine are 43 and 1.59. ASSESSMENT: Rectal bleeding with maroon stools. This may be old blood this could be ongoing bleeding, though her hemoglobin and vital signs remained stable. RECOMMENDATIONS: Monitor hemoglobin and hematocrit. If the patient continues to pass maroon blood, we will consider bleeding scan or upper and lower endoscopies. Now, she is off the blood thinners. Job ID: [id number]
[2019-03-13] MEDS: Pantoprazole 40 MG VIAL IVP SCH (21:18)
--- NOTE | 2019-03-13 22:10 | PDOC.HOSPP ---
- Subjective Subjective: Doing ok. Still eager to go home. Did pass some maroon stool. Tolerated the IVC filter well. - Objective Vital Signs & Weight: Vital Signs (12 hours) Temp Pulse Resp BP Pulse Ox 03/13/19 19:44 99.0 F 74 20 137/74 99 03/13/19 16:00 98.5 F 78 18 118/72 100 03/13/19 12:00 97.7 F 71 20 101/58 L 96 Weight Admit Weight 175 lb 1 oz Weight 177 lb 8 oz I&O: 03/12/19 03/13/19 03/14/19 06:59 06:59 06:59 Intake Total 470 940 Output Total 750 630 Balance -280 310 Result Diagrams: 03/13/19 05:31 03/13/19 05:31 Additional Labs: Accuchecks 03/13/19 03/13/19 03/13/19 19:55 16:15 11:26 POC Glucose 203 H 181 H 192 H 03/13/19 05:20 POC Glucose 145 H Hospitalist ROS - Medication Medications: Active Medications Generic Name Dose Route Start Last Admin Trade Name Freq PRN Reason Stop Dose Admin Acetaminophen 650 mg 03/07/19 16:51 03/13/19 09:46 Tylenol PO 650 mg Q4H PRN Administration Headache/Fever/Mild Pain (1-3) Amiodarone HCl 200 mg 03/08/19 09:00 03/13/19 09:45 Cordarone PO 200 mg DAILY DEVAN Administration Famotidine 20 mg 03/13/19 09:00 03/13/19 09:46 Pepcid PO 20 mg DAILY DEVAN Administration Furosemide 20 mg 03/09/19 09:00 03/13/19 09:46 Lasix PO 20 mg DAILY DEVAN Administration Ceftriaxone Sodium 1 gm/ 100 mls @ 200 mls/hr 03/12/19 15:00 03/13/19 14:06 Sodium Chloride IVPB 03/18/19 15:01 100 mls 1500 DEVAN Administration Insulin Human Lispro 0 units 03/08/19 18:59 03/11/19 05:23 Humalog SC 2 unit .MILD SLIDING SCALE PRN Administration Mild Correctional Scale Levothyroxine Sodium 125 mcg 03/09/19 06:00 03/13/19 05:50 Synthroid PO 125 mcg 0600 DEVAN Administration Ondansetron HCl 4 mg 03/07/19 16:51 03/11/19 10:39 Zofran IVP 4 mg Q6H PRN Administration Nausea/Vomiting Pantoprazole Sodium 40 mg 03/13/19 21:00 03/13/19 21:18 Protonix IVP 40 mg Q12HR DEVAN Administration Sodium Chloride 10 ml 03/07/19 16:51 03/13/19 21:23 Flush - Normal Saline IVF 10 ml Q12H PRN Administration Saline Flush Sodium Chloride 10 ml 03/07/19 16:51 03/11/19 12:54 Flush - Normal Saline IVF 10 ml PRN PRN Administration Saline Flush - Exam General Appearance: NAD, awake alert Heart: RRR, no murmur, no gallops, no rubs, normal peripheral pulses Respiratory: CTAB, no wheezes, no rales, no ronchi, normal chest expansion, no tachypnea, normal percussion Gastrointestinal: soft, non-tender, non-distended, normal bowel sounds, no palpable masses, no hepatomegaly, no splenomegaly, no bruit Extremities: no cyanosis, no clubbing, no edema Skin: normal turgor Musculoskeletal: normal tone Psychiatric: normal behavior, A&O x 3 Psychiatric - other findings: Still tearful at times. Hosp A/P (1) DVT (deep venous thrombosis) Code(s): I82.409 - ACUTE EMBOLISM AND THOMBOS UNSP DEEP VN UNSP LOWER EXTREMITY Status: Acute (2) UTI (urinary tract infection) Status: Acute (3) Weakness generalized Code(s): R53.1 - WEAKNESS Status: Acute (4) Aortic stenosis, severe Code(s): I35.0 - NONRHEUMATIC AORTIC (VALVE) STENOSIS Status: Chronic (5) Atrial fibrillation Code(s): I48.91 - UNSPECIFIED ATRIAL FIBRILLATION Status: Chronic Qualifiers: Atrial fibrillation type: paroxysmal (6) CAD (coronary artery disease) Code(s): I25.10 - ATHSCL HEART DISEASE OF [place] CORONARY ARTERY W/O ANG PCTRS Status: Chronic Qualifiers: Coronary Disease-Associated Artery/Lesion type: [place] artery [place] vs. transplanted heart: [place] heart Associated angina: without angina Qualified Code(s): I25.10 - Atherosclerotic heart disease of [place] coronary artery without angina pectoris (7) CKD (chronic kidney disease) stage 3, GFR 30-59 ml/min Code(s): N18.3 - CHRONIC KIDNEY DISEASE, STAGE 3 (MODERATE) Status: Chronic (8) DM2 (diabetes mellitus, type 2) Status: Chronic Qualifiers: Diabetes mellitus half-way insulin use: without half-way use Diabetes mellitus complication status: with kidney complications Chronic kidney disease stage: stage 3 (moderate) (9) Dyslipidemia Code(s): E78.5 - HYPERLIPIDEMIA, UNSPECIFIED Status: Chronic (10) Hypertension Code(s): I10 - ESSENTIAL (PRIMARY) HYPERTENSION Status: Chronic Qualifiers: Hypertension type: essential hypertension Qualified Code(s): I10 - Essential (primary) hypertension (11) Hypothyroid Code(s): E03.9 - HYPOTHYROIDISM, UNSPECIFIED Status: Chronic Qualifiers: Hypothyroidism type: unspecified Qualified Code(s): E03.9 - Hypothyroidism , unspecified (12) Physical debility Code(s): R53.81 - OTHER MALAISE Status: Chronic (13) Acute on chronic systolic CHF (congestive heart failure) Code(s): I50.23 - ACUTE ON CHRONIC SYSTOLIC (CONGESTIVE) HEART FAILURE Status : Resolved (14) Anemia Code(s): D64.9 - ANEMIA, UNSPECIFIED Status: Acute (15) Lower GI bleed Code(s): K92.2 - GASTROINTESTINAL HEMORRHAGE, UNSPECIFIED Status: Acute (16) Nausea & vomiting Code(s): R11.2 - NAUSEA WITH VOMITING, UNSPECIFIED Status: Acute (17) Headache Code(s): R51 - HEADACHE Status: Acute - Plan She is not a candidate for TAVR until she can get up and take a few steps on her own. Too weak to do that right now. Will be going back home with HH and HPT. Was on anticoag for the DVT. That has been stopped now due to GIB. Notgoing to be a candidate for anticoagulation. IVC filter 03/13/19 On abx for UTI, but growing E coli, Enterococcus. On Rocephin, but given the Enterococcus, will repeat UA and consult ID for recs. Dr. Fish recommended no antibiotics. Hemoglobin trending down. Off anticoagulation. Follow h/h. GI consulted. Recheck H/H in am. N/V resolved. Headache resolved. Possible DC as early as tomorrow if all goes well. Will need stable hgb, IVC filter, GI consult, home health. Asked CM to see her.
--- NOTE | 2019-03-14 00:05 | CON ---
DATE OF CONSULTATION: REASON FOR CONSULTATION: Evaluate urinary tract findings. 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 Reportedly, she had been scheduled for placement of a TAVR in [place], but that was canceled because she could not stand up. She was seen by Dr. Metz, who ordered duplex ultrasound of lower extremities, which was positive for DVT and she was admitted. On arrival, her temperature was 98, BP 150/70, pulse 69, and O2 saturation 100%. On physical exam, respiratory exam was normal. Heart examination was normal. Abdomen was soft. Diminished motor strength in lower extremities. Other findings on admission included a white cell count of 10.3, hemoglobin 9.5, platelets 275 with normal differential. Chemistry with a sodium of 138, creatinine 1.68 with a baseline of 0.96 in July 2018. Magnesium 2.0, calcium 9.0. Liver profile within normal limits. Albumin 3.4, globulin 3.5. TSH 1.7. Urinalysis 0 to 3 wbc's. The initial impression was lightheadedness, physical debility, SACHI, weakness, aortic stenosis, atrial fibrillation, coronary artery disease, type 2 diabetes, and deep vein thrombosis. The patient had an inferior vena cava filter placed and the patient has remained afebrile throughout the hospital stay. Initial urinalysis with 0 to 3 wbc's. White cell count went up to 12, today at 15.3. Urine culture with E coli and Enterococcus faecalis. The E coli is greater than 100,000 CFUs. E faecalis is unable to quantitate. The patient was also found to have a decubitus ulcer, which was stage 2 to 3 at the most, measuring about 1-1/2 cm x 1 cm. Currently, Ms. Rivas is awake. She denies any headaches. No visual symptoms, sore throat, odynophagia, or dysphagia. No neck pain or back pain. No dyspnea or chest pain. No abdominal pain. She is voiding in the diaper and has a Wick catheter in place. She is unable to lift her knees from the bed, but she is barely able to move the knees. 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 She had been scheduled for TAVR placement, but could not stand; therefore, that procedure was canceled reportedly. SOCIAL HISTORY: Never smoker. Lives in [place] with family. No alcoholic beverage use. FAMILY HISTORY: Coronary artery disease, type 2 diabetes. ALLERGY HISTORY: Codeine, morphine, prednisone. CURRENT MEDICATIONS: 1. Cordarone. 2. Ceftriaxone. 3. Plavix. 4. Pepcid. 5. Lasix. 6. Insulin. 7. Synthroid. 8. Zofran. 9. Promethazine. PHYSICAL EXAMINATION: VITAL SIGNS: Temperature has been normal. BP 120/70, pulse 70, respirations 18 to 20, O2 sat 96%. SKIN: Shows a fresh, red-based irregular stage 2 to 3 decubitus ulcer in the presacral region. No erythema. No undermining. The patient has a Wick catheter in the perineal area to keep her perineum dry. She has a peripheral IV access and had the right IJ location where the IVC filter was deployed, looks like. She has no lymphadenopathy. HEENT: Ocular movements conjugate, alopecia. Oral cavity with no remaining soboba teeth. NECK: Supple. No jugular vein distention. LUNGS: Symmetric. Clear breath sounds. A faint systolic murmur at the aortic area. HEART: Irregular rate and rhythm. ABDOMEN: Soft, not distended or tender. Question of bladder distention. EXTREMITIES: Limitation range of motion due to pain in the right and left hips. No inflammatory changes in the knees or ankles. 1+ edema in the lower extremities. Pulses are 1+ in dorsalis pedis. Plantar responses are flexor. She is able to move the feet well with good strength. There is atrophy of the musculature of the anterior thighs, right and left side. NEUROLOGIC: Cognitive function appears to be intact. LABORATORY DATA: White cell count was 15.3, hemoglobin 8, platelets 251. Sodium 138. Creatinine 1.36. Repeat urinalysis with 0 to 3 wbc's. This is from yesterday. IMAGING DATA: Include a brain CT with no acute findings and an echocardiogram with estimated EF of 40% to 45%, aortic stenosis, moderate mitral regurgitation and the venogram with DVT, which was bilateral. Chest x-ray on admission with no acute cardiopulmonary process. 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 DISCUSSION: The urinary findings probably fit the category of asymptomatic bacteriuria and therefore they would not be treated. We will go ahead and discontinue antimicrobial therapy. The reason for the neutrophilia is not clear at this point, but she does have those clots in the legs and may have had a pulmonary embolism that was not identified yet. She has been already treated with the presence of the filtering device, so upon discharge planning, I would recommend discontinuation of antimicrobial therapy. Job ID: [id number] FREDDIE
[2019-03-14] MEDS: Levothyroxine Sodium 125 MCG TAB PO SCH (05:19)
[2019-03-14 05:27] LABS: Hemoglobin 7.7 g/dL (12.0-16.0)
[2019-03-14] MEDS: Famotidine 20 MG TAB PO SCH (09:03)
[2019-03-14] MEDS: Furosemide 20 MG TAB PO SCH (09:03)
[2019-03-14] MEDS: Amiodarone 200 MG TAB PO SCH (09:03)
[2019-03-14] MEDS: Pantoprazole 40 MG VIAL IVP SCH ×2 (09:04→21:24)
[2019-03-14] MEDS: Ondansetron PF 4 MG/2 ML Vial IVP PRN (10:45)
[2019-03-14] MEDS ORDERED: Aspirin 81 mg Enteric Coated Tablet PO SCH (13:45)
[2019-03-14] MEDS: cefTRIAXone\\ROCEPHIN 1 GM in Sodium Chloride 0.9% 100 ML IVPB SCH (14:33)
[2019-03-14] MEDS ORDERED: Furosemide 20 MG/2 ML VIAL SLOW IVP SCH (14:45)
[2019-03-14 17:28] LABS: Hemoglobin 7.7 g/dL (12.0-16.0)
[2019-03-15] MEDS: Levothyroxine Sodium 125 MCG TAB PO SCH (05:41)
[2019-03-15 07:10] LABS: #Eosinphils 0.2 thou/uL (0.0-0.7); #Lymphocytes 1.5 thou/uL (1.20-3.40); #Monocytes 1.6 thou/uL (0.11-0.59); #Neutrophils 11.7 thou/uL (1.40-6.50); %Basophils 0.1 % (0.0-1.0); %Lymphocytes 10.2 % (21.0-51.0); %Monocytes 10.6 % (0.0-10.0); %Neutrophils 78.1 % (42.0-75.0); Mean Corpuscular HGB CONC 34.9 g/dL (32.0-36.0); Mean Corpuscular Hemoglobin 30.9 pg (27.0-31.0); Mean Corpuscular Volume 88.5 fL (78.0-98.0); Mean Platelet Volume 8.4 fL (7.4-10.4); Platelet Count 224 thou/uL (130-400); RBC Distribution Width 14.1 % (11.5-14.5); Red Blood Cell (RBC) Count 3.24 mill/uL (4.20-5.40); White Blood Cell (WBC) Count 14.9 thou/uL (4.8-10.8)
[2019-03-15 07:20] LABS: Anion Gap 11 mmol/L (10-20); BUN (Urea Nitrogen) 37 mg/dL (9.8-20.1); Calc. Creatinine Clearance 37 mL/min (70-130); Calcium 8.1 mg/dL (7.8-10.44); Carbon Dioxide 21 mmol/L (23-31); Chloride 107 mmol/L (98-107); Estimated GFR-MDRD 36; Glucose 103 mg/dL (83-110); Potassium 3.2 mmol/L (3.5-5.1); Sodium 136 mmol/L (136-145)
--- NOTE | 2019-03-15 07:51 | PDOC.HOSPP ---
- Subjective Encounter Date: 03/14/19 Subjective: Still doing ok, but had some further maroon stools. No abdominal pain. - Objective Vital Signs & Weight: Vital Signs (12 hours) Temp Pulse Pulse Resp BP BP BP 03/15/19 04:00 98.5 F 79 18 110/72 03/15/19 01:53 98.6 F 76 18 107/65 03/15/19 00:00 98.6 F 76 17 114/67 03/14/19 22:45 98.1 F 74 16 130/75 03/14/19 20:58 98.1 F 79 16 122/73 03/14/19 20:00 Pulse Ox 03/15/19 04:00 97 03/15/19 01:53 98 03/15/19 00:00 98 03/14/19 22:45 100 03/14/19 20:58 98 03/14/19 20:00 98 Weight Admit Weight 175 lb 1 oz Weight 177 lb 8 oz I&O: 03/14/19 03/15/19 03/16/19 06:59 06:59 06:59 Intake Total 300 700 Output Total 500 Balance -200 700 Result Diagrams: 03/15/19 06:45 03/15/19 06:45 Additional Labs: Accuchecks 03/15/19 03/14/19 03/14/19 04:27 19:47 16:47 POC Glucose 97 167 H 145 H 03/14/19 11:38 POC Glucose 179 H Hospitalist ROS - Medication Medications: Active Medications Generic Name Dose Route Start Last Admin Trade Name Freq PRN Reason Stop Dose Admin Acetaminophen 650 mg 03/07/19 16:51 03/13/19 09:46 Tylenol PO 650 mg Q4H PRN Administration Headache/Fever/Mild Pain (1-3) Amiodarone HCl 200 mg 03/08/19 09:00 03/14/19 09:03 Cordarone PO 200 mg DAILY DEVAN Administration Furosemide 20 mg 03/09/19 09:00 03/14/19 09:03 Lasix PO 20 mg DAILY DEVAN Administration Insulin Human Lispro 0 units 03/08/19 18:59 03/11/19 05:23 Humalog SC 2 unit .MILD SLIDING SCALE PRN Administration Mild Correctional Scale Levothyroxine Sodium 125 mcg 03/09/19 06:00 03/15/19 05:41 Synthroid PO 125 mcg 0600 DEVAN Administration Ondansetron HCl 4 mg 03/07/19 16:51 03/14/19 03:29 Zofran Odt PO 4 mg Q6H PRN Administration Nausea/Vomiting Ondansetron HCl 4 mg 03/07/19 16:51 03/14/19 10:45 Zofran IVP 4 mg Q6H PRN Administration Nausea/Vomiting Pantoprazole Sodium 40 mg 03/13/19 21:00 03/14/19 21:24 Protonix IVP 40 mg Q12HR DEVAN Administration Sodium Chloride 10 ml 03/07/19 16:51 03/13/19 21:23 Flush - Normal Saline IVF 10 ml Q12H PRN Administration Saline Flush Sodium Chloride 10 ml 03/07/19 16:51 03/11/19 12:54 Flush - Normal Saline IVF 10 ml PRN PRN Administration Saline Flush - Exam General Appearance: NAD, awake alert Heart: RRR, II/IV Respiratory: CTAB, no wheezes, no rales, no ronchi, normal chest expansion, no tachypnea, normal percussion Gastrointestinal: soft, non-tender, non-distended, normal bowel sounds, no palpable masses, no hepatomegaly, no splenomegaly, no bruit Extremities: no cyanosis, no clubbing, no edema Musculoskeletal: generalized weakness Psychiatric: normal affect Hosp A/P (1) DVT (deep venous thrombosis) Code(s): I82.409 - ACUTE EMBOLISM AND [place] UNSP DEEP VN UNSP LOWER EXTREMITY Status: Acute (2) UTI (urinary tract infection) Status: Acute (3) Weakness generalized Code(s): R53.1 - WEAKNESS Status: Acute (4) Aortic stenosis, severe Code(s): I35.0 - NONRHEUMATIC AORTIC (VALVE) STENOSIS Status: Chronic (5) Atrial fibrillation Code(s): I48.91 - UNSPECIFIED ATRIAL FIBRILLATION Status: Chronic Qualifiers: Atrial fibrillation type: paroxysmal (6) CAD (coronary artery disease) Code(s): I25.10 - ATHSCL HEART DISEASE OF [place] CORONARY ARTERY W/O ANG PCTRS Status: Chronic Qualifiers: Coronary Disease-Associated Artery/Lesion type: [place] artery [place] vs. transplanted heart: [place] heart Associated angina: without angina Qualified Code(s): I25.10 - Atherosclerotic heart disease of [place] coronary artery without angina pectoris (7) CKD (chronic kidney disease) stage 3, GFR 30-59 ml/min Code(s): N18.3 - CHRONIC KIDNEY DISEASE, STAGE 3 (MODERATE) Status: Chronic (8) DM2 (diabetes mellitus, type 2) Status: Chronic Qualifiers: Diabetes mellitus prison insulin use: without termite exterminator helper use Diabetes mellitus complication status: with kidney complications Chronic kidney disease stage: stage 3 (moderate) (9) Dyslipidemia Code(s): E78.5 - HYPERLIPIDEMIA, UNSPECIFIED Status: Chronic (10) Hypertension Code(s): I10 - ESSENTIAL (PRIMARY) HYPERTENSION Status: Chronic Qualifiers: Hypertension type: essential hypertension Qualified Code(s): I10 - Essential (primary) hypertension (11) Hypothyroid Code(s): E03.9 - HYPOTHYROIDISM, UNSPECIFIED Status: Chronic Qualifiers: Hypothyroidism type: unspecified Qualified Code(s): E03.9 - Hypothyroidism , unspecified (12) Physical debility Code(s): R53.81 - OTHER MALAISE Status: Chronic (13) Acute on chronic systolic CHF (congestive heart failure) Code(s): I50.23 - ACUTE ON CHRONIC SYSTOLIC (CONGESTIVE) HEART FAILURE Status : Resolved (14) Anemia Code(s): D64.9 - ANEMIA, UNSPECIFIED Status: Acute (15) Nausea & vomiting Code(s): R11.2 - NAUSEA WITH VOMITING, UNSPECIFIED Status: Acute (16) Headache Code(s): R51 - HEADACHE Status: Acute (17) GIB (gastrointestinal bleeding) Code(s): K92.2 - GASTROINTESTINAL HEMORRHAGE, UNSPECIFIED Status: Acute - Plan She is not a candidate for TAVR until she can get up and take a few steps on her own. Too weak to do that right now. Will be going back home with HH and HPT. Was on anticoag for the DVT. That has been stopped now due to GIB. Notgoing to be a candidate for anticoagulation. IVC filter 03/13/19 Remains on Plavix. On abx for UTI, but growing E coli, Enterococcus. Dr. Fish recommended no antibiotics. Suspects simple bacteriuria. Abx discontinued. Hemoglobin trending down. Off anticoagulation. Follow h/h. GI consulted. Continues to have some melena, but unclear it is related to old blood or continued bleed. Discussed with GI. Will recheck the H/H this afternoon and then consider options. N/V resolved. Headache resolved.
--- NOTE | 2019-03-15 07:56 | PRG ---
DATE OF SERVICE: 03/14/2019 SUBJECTIVE: Ms. Rivas still is not eating much. She remains nauseated, has some hiccups. She is on a PPI. We restarted her Plavix. She had stents recently placed in the past 6 months in her coronary arteries. She continues to have some maroon stools. Her hemoglobin has been stable, 7.2 on the 16th, 8.0 yesterday, 7.7 this morning and 7.7 at 1700. Medications reviewed Protonix IV q.12. Rocephin has been discontinued. Plavix has been restarted. Remains on some Lasix, levothyroxine. OBJECTIVE: VITAL SIGNS: Temperature 98, pulse 85, blood pressure 105/62. GENERAL: The patient is pale. She has little bit of tremor. LUNGS: Clear. HEART: Regular. ABDOMEN: Nontender. LABORATORY DATA: As per HPI. ASSESSMENT: Severe aortic stenosis, recent coronary artery stenting, atrial fibrillation, gastrointestinal bleed. PLAN: With her ongoing nausea, reported weight loss of 20 pounds, ongoing maroon to melenic stools, and ongoing need for antiplatelet agents, we will attempt EGD tomorrow. Agree with transfusion of 2 units of blood today that should optimize her hemodynamics status. We will see if we get an EGD done tomorrow. I do not think she will be able to tolerate a colonoscopy in her present state of deconditioning. If EGD is negative and ongoing blood loss, then we could consider a tagged scan. She is at risk for AVM bleeding as this is often seen with severe aortic stenosis. Job ID: [id number]
[2019-03-15] MEDS: Aspirin 81 mg Enteric Coated Tablet PO SCH (09:15)
[2019-03-15] MEDS: Amiodarone 200 MG TAB PO SCH (09:15)
[2019-03-15] MEDS: Furosemide 20 MG TAB PO SCH (09:15)
[2019-03-15] MEDS: Clopidogrel Bisulfate 75 MG TAB PO SCH (09:15)
--- NOTE | 2019-03-15 15:50 | OP ---
DATE OF PROCEDURE: 03/15/2019 PREPROCEDURE DIAGNOSES: 1. Gastrointestinal bleed of unclear etiology. 2. History of duodenal ulcers about 7 years ago. 3. Weight loss. 4. Nausea. 5. Aortic stenosis. 6. Coronary artery disease. POSTPROCEDURE DIAGNOSES: 1. Normal esophagus. 2. Normal stomach. 3. Normal duodenum. 4. No signs of bleeding. RECOMMENDATIONS: Would continue to monitor hemoglobin and hematocrit. I do not think she can tolerate a bowel prep for colonoscopy and neither this to her family. Should she have continued bleeding, consider tagged bleeding scan. The patient has never had screening colonoscopy, so malignancy is always being a concern as would a vascular ectasias related to her aortic stenosis. ANESTHESIA: TIVA. PROCEDURE IN DETAIL: The patient was informed of the risks, benefits, and possible complications of endoscopy including perforation, bleeding, reaction to medication, and aspiration. After the case discussed with the patient's waxing machine operator, who felt that she really was more of a moderate aortic stenosis and severe, we decided to proceed with upper endoscopy. Informed consent was obtained. The patient was brought to the endoscopy suite, where she was sedated. A bite block was placed inside the orifice. The endoscope was advanced to the esophagus, stomach, and second and third portions of the duodenum and slowly removed. There was good visualization of the mucosa. There were no ulcers, masses, lesions, AV malformations, or bleeding spots. There was no stigmata of recent bleeding. There was no old blood in the stomach. There was clear yellow bile. Retroflexed views were normal. The scope was then returned to forward position. The stomach was desufflated. The scope was removed. The patient tolerated the procedure well. There were no complications. Job ID: [id number]
--- NOTE | 2019-03-15 16:04 | PDOC.PALCO ---
Palliative Care Consult - Consult Details Requesting Physician: Dr Murray Reason for Consult: goals of care, family support Family Members Present: Daughter - Allergies Allergies/Adverse Reactions: Allergies Allergy/AdvReac Type Severity Reaction Status Date / Time codeine Allergy Verified 09/29/13 22:39 morphine Allergy Verified 09/29/13 22:39 prednisone Allergy Verified 03/07/19 23:08 [id number] Reductase Allergy Verified 08/08/15 08:22 Inhibitor - Objective Vital Signs: Vital Signs - Most Recent Temp Pulse Resp BP Pulse Ox 98.0 F 72 22 H 107/52 L 98 03/15/19 08:00 03/15/19 08:00 03/15/19 08:00 03/15/19 08:00 03/15/19 08:00 - Plan/Recommendations Plan: *Patient to have a CT this evening. Discussed overall goal remains to go home to "get stronger" to have her TAVR placed. *Patient performed a "teach back" of her hospital stay with complications *Patient states she wants to go home with [facility] tomorrow 03/16 / asked if she an her daughter would be willing to think about what an option may be if patient is not able to become stronger with Home Health *Further gave information in relation to hospice as it had been introduced by Dr Murray *Asked Ms Rivas and her daughter to think of plan "A & B" and to hope for the best but plan for the worst, then they could respond with health changes and not react *Discussed resuscitation status with the perspective of not withholding life sustaining measures but allowing for a natural . Will follow up 03/16 ' Contact information left with patient and her daughter [50] minutes spent on this encounter with >50% of the time in counseling and coordination of care. Thank you for this very appropriate consult.
--- NOTE | 2019-03-15 16:28 | PDOC.HOSPP ---
- Subjective Subjective: Doing ok. No specific complaints. Tolerated endoscopy well. - Objective Vital Signs & Weight: Vital Signs (12 hours) Temp Pulse Resp BP Pulse Ox 03/15/19 08:00 98.0 F 72 22 H 107/52 L 98 Weight Admit Weight 175 lb 1 oz Weight 177 lb 8 oz I&O: 03/14/19 03/15/19 03/16/19 06:59 06:59 06:59 Intake Total 300 700 Output Total 500 Balance -200 700 Result Diagrams: 03/15/19 06:45 03/15/19 06:45 Additional Labs: Accuchecks 03/15/19 03/15/19 03/14/19 12:40 04:27 19:47 POC Glucose 95 97 167 H 03/14/19 16:47 POC Glucose 145 H Hospitalist ROS - Medication Medications: Active Medications Generic Name Dose Route Start Last Admin Trade Name Freq PRN Reason Stop Dose Admin Acetaminophen 650 mg 03/07/19 16:51 03/13/19 09:46 Tylenol PO 650 mg Q4H PRN Administration Headache/Fever/Mild Pain (1-3) Amiodarone HCl 200 mg 03/08/19 09:00 03/14/19 09:03 Cordarone PO 200 mg DAILY DEVAN Administration Furosemide 20 mg 03/09/19 09:00 03/14/19 09:03 Lasix PO 20 mg DAILY DEVAN Administration Insulin Human Lispro 0 units 03/08/19 18:59 03/11/19 05:23 Humalog SC 2 unit .MILD SLIDING SCALE PRN Administration Mild Correctional Scale Levothyroxine Sodium 125 mcg 03/09/19 06:00 03/15/19 05:41 Synthroid PO 125 mcg 0600 DEVAN Administration Ondansetron HCl 4 mg 03/07/19 16:51 03/14/19 03:29 Zofran Odt PO 4 mg Q6H PRN Administration Nausea/Vomiting Ondansetron HCl 4 mg 03/07/19 16:51 03/14/19 10:45 Zofran IVP 4 mg Q6H PRN Administration Nausea/Vomiting Sodium Chloride 10 ml 03/07/19 16:51 03/13/19 21:23 Flush - Normal Saline IVF 10 ml Q12H PRN Administration Saline Flush Sodium Chloride 10 ml 03/07/19 16:51 03/11/19 12:54 Flush - Normal Saline IVF 10 ml PRN PRN Administration Saline Flush - Exam General Appearance: NAD Neck: supple, symmetric, no JVD, no thyromegaly, no lymphadenopathy, no carotid bruit Heart: RRR, II/IV Respiratory: CTAB, no wheezes, no rales, no ronchi, normal chest expansion, no tachypnea, normal percussion Gastrointestinal: soft, non-tender, non-distended, normal bowel sounds, no palpable masses, no hepatomegaly, no splenomegaly, no bruit Extremities: no cyanosis, no clubbing, no edema Skin: normal turgor Musculoskeletal: generalized weakness Psychiatric - other findings: Tearful at times. Hosp A/P (1) DVT (deep venous thrombosis) Code(s): I82.409 - ACUTE EMBOLISM AND THOMBOS UNSP DEEP VN UNSP LOWER EXTREMITY Status: Acute Qualifiers: Laterality: bilateral (2) UTI (urinary tract infection) Status: Acute (3) Weakness generalized Code(s): R53.1 - WEAKNESS Status: Acute (4) Aortic stenosis, severe Code(s): I35.0 - NONRHEUMATIC AORTIC (VALVE) STENOSIS Status: Chronic (5) Atrial fibrillation Code(s): I48.91 - UNSPECIFIED ATRIAL FIBRILLATION Status: Chronic Qualifiers: Atrial fibrillation type: paroxysmal (6) CAD (coronary artery disease) Code(s): I25.10 - ATHSCL HEART DISEASE OF [place] CORONARY ARTERY W/O ANG PCTRS Status: Chronic Qualifiers: Coronary Disease-Associated Artery/Lesion type: [place] artery [place] vs. transplanted heart: [place] heart Associated angina: without angina Qualified Code(s): I25.10 - Atherosclerotic heart disease of [place] coronary artery without angina pectoris (7) CKD (chronic kidney disease) stage 3, GFR 30-59 ml/min Code(s): N18.3 - CHRONIC KIDNEY DISEASE, STAGE 3 (MODERATE) Status: Chronic (8) DM2 (diabetes mellitus, type 2) Status: Chronic Qualifiers: Diabetes mellitus usp insulin use: without moth exterminator use Diabetes mellitus complication status: with kidney complications Chronic kidney disease stage: stage 3 (moderate) (9) Dyslipidemia Code(s): E78.5 - HYPERLIPIDEMIA, UNSPECIFIED Status: Chronic (10) Hypertension Code(s): I10 - ESSENTIAL (PRIMARY) HYPERTENSION Status: Chronic Qualifiers: Hypertension type: essential hypertension Qualified Code(s): I10 - Essential (primary) hypertension (11) Hypothyroid Code(s): E03.9 - HYPOTHYROIDISM, UNSPECIFIED Status: Chronic Qualifiers: Hypothyroidism type: unspecified Qualified Code(s): E03.9 - Hypothyroidism , unspecified (12) Physical debility Code(s): R53.81 - OTHER MALAISE Status: Chronic (13) Acute on chronic systolic CHF (congestive heart failure) Code(s): I50.23 - ACUTE ON CHRONIC SYSTOLIC (CONGESTIVE) HEART FAILURE Status : Resolved (14) Anemia Code(s): D64.9 - ANEMIA, UNSPECIFIED Status: Acute (15) Nausea & vomiting Code(s): R11.2 - NAUSEA WITH VOMITING, UNSPECIFIED Status: Acute (16) Headache Code(s): R51 - HEADACHE Status: Acute (17) GIB (gastrointestinal bleeding) Code(s): K92.2 - GASTROINTESTINAL HEMORRHAGE, UNSPECIFIED Status: Acute - Plan She is not a candidate for TAVR until she can get up and take a few steps on her own. Too weak to do that. Was on anticoag for the DVT. That has been stopped now due to GIB. Notgoing to be a candidate for anticoagulation. IVC filter 03/13/19 Remains on Plavix. On abx for UTI, but growing E coli, Enterococcus. Dr. Fish recommended no antibiotics. Suspects simple bacteriuria. Abx discontinued. Hemoglobin trending down. Off anticoagulation. Had transfusion yesterday. Follow h/h. GI consulted. Continues to have some melena, but unclear it is related to old blood or continued bleed. Discussed with GI. Negative EGD. Colonoscopy would carry some risk and unclear that she would tolerate the prep. CT with contrast would be high risk for kidneys. Will get CT non-con. Patient is ok with that. However, she is clear that she does not want to do a colonoscopy. She is tired of being in the hospital and tired of being sick. She is prepared to go home and take a palliative approach. Discussed hospice as an option. Discussed with Palliative Care. N/V resolved. Headache resolved.
--- NOTE | 2019-03-15 17:42 | CT ---
CT ABDOMEN AND PELVIS WITHOUT IV CONTRAST: 03/15/19 INDICATIONS: GI bleed. Right abdominal pain. Comparison made to CT abdomen and pelvis 09/29/13. FINDINGS: The lung bases are clear. Liver, spleen and pancreas appear unremarkable. The stomach is distended with ingested contrast. There is mucosal irregularity seen along the posteri or wall of the gastric fundus along the greater curvature. Mucosa lesions cannot be excluded and cons ider endoscopy. Small bowel loops normal caliber. Stool and gas seen throughout the colon. Mild nonspecific mural thickening seen involving the sigmoid and rectum. Rectal haziness in the perirectal fat is nonspecific. Possible colitis. Recommend direct evaluation. Aorta is calcified without aneurysm. IVC filter is noted. No free fluid, mass, or adenopathy. Adrenal glands unremarkable. Kidneys show no hydronephrosis. Cysts from the posterior right kidney is again seen and has enlarged since prior study, now measuring 3.7 cm dimeter. The urinary bladder cha ears unremarkable. Severe degenerative changes at both hips with deformity of both femoral heads, chronic in appearance. Severe degenerative changes in the spine. IMPRESSION: 1. Nonspecific mural thickening of the sigmoid and rectum with perirectal haziness suggesting co litis. 2. The stomach is distended. Mucosal irregularity seen along the posterior wall of the gastric f undus of uncertain significance. POS: [facility]
[2019-03-16] MEDS: Pantoprazole 40 MG VIAL IVP SCH (00:51)
[2019-03-16 05:06] VITALS: TEMP 99
[2019-03-16] MEDS: Levothyroxine Sodium 125 MCG TAB PO SCH (05:22)
[2019-03-16 06:32] LABS: #Eosinphils 0.1 thou/uL (0.0-0.7); #Lymphocytes 1.6 thou/uL (1.20-3.40); #Monocytes 1.5 thou/uL (0.11-0.59); #Neutrophils 9.9 thou/uL (1.40-6.50); %Basophils 0.3 % (0.0-1.0); %Lymphocytes 12.2 % (21.0-51.0); %Monocytes 11.6 % (0.0-10.0); %Neutrophils 74.8 % (42.0-75.0); Hemoglobin 9.6 g/dL (12.0-16.0); Mean Corpuscular HGB CONC 33.5 g/dL (32.0-36.0); Mean Corpuscular Hemoglobin 29.5 pg (27.0-31.0); Mean Corpuscular Volume 88.2 fL (78.0-98.0); Mean Platelet Volume 8.3 fL (7.4-10.4); Platelet Count 257 thou/uL (130-400); RBC Distribution Width 14.3 % (11.5-14.5); Red Blood Cell (RBC) Count 3.26 mill/uL (4.20-5.40); White Blood Cell (WBC) Count 13.3 thou/uL (4.8-10.8)
[2019-03-16 07:51] VITALS: BP 108/62
[2019-03-16] MEDS ORDERED: Pantoprazole 40 MG VIAL IVP SCH (09:00)
[2019-03-16] MEDS: Clopidogrel Bisulfate 75 MG TAB PO SCH (09:30)
[2019-03-16] MEDS: Aspirin 81 mg Enteric Coated Tablet PO SCH (09:31)
[2019-03-16] MEDS: Furosemide 20 MG TAB PO SCH (09:31)
[2019-03-16] MEDS: Amiodarone 200 MG TAB PO SCH (09:31)
--- NOTE | 2019-03-19 11:25 | DIS ---
DATE OF ADMISSION: 03/07/2019 DATE OF DISCHARGE: 03/16/2019 DISCHARGE DIAGNOSES: 1. Severe aortic stenosis. 2. Deep venous thrombosis. 3. Gastrointestinal bleed. 4. Atrial fibrillation. 5. Bacteriuria. 6. Coronary artery disease. 7. Chronic kidney disease stage 3. 8. Diabetes mellitus. 9. Dyslipidemia. 10. Hypertension. 11. Hypothyroidism. 12. Severe physical debility. 13. Acute on chronic diastolic heart failure. 14. Anemia. 15. Nausea and vomiting. 16. Headache. HISTORY OF PRESENT ILLNESS: This patient is an 88-year-old female with a history of severe aortic stenosis, who is likely in need of valve replacement/TAVR. The patient went to [place] to consider this possibility and had to have four intracoronary stents placed. Since that time, she has had progressive debility and has been told that she could only get the TAVR should she be able to get up and take a few steps on her own. She has not been capable of doing that and was in the rehab. She made some minor strides there, but ran out of days and has been back home. She has become progressively weak and lightheaded, so she presented to the emergency department, where she had some bacteriuria and was initially felt to have possible urinary tract infection. HOSPITAL COURSE: The patient was admitted to the hospital, started on treatment for urinary tract infection. She was seen by Cardiology, who felt she had element of dehydration as well and had no further recommendations other than continued physical therapy. She did have a repeat echocardiogram, which revealed EF of 40% to 45% with aortic stenosis with no gradient being obtained. She was felt to possibly be stable for discharge. However, a lower extremity venogram for lower extremity discomfort revealed bilateral DVTs. She was subsequently started on anticoagulation therapy. However, she then developed GI bleed. Therefore, her anticoagulation was discontinued. Cardiovascular Surgery was consulted and patient had an IVC filter placed. GI was also consulted and continued to watch her hemoglobin. She did have decline requiring subsequent transfusion and she continued to have melena and some potential hematochezia as well. We debated possibility of endoscopies given her overall poor health status. She did undergo EGD that was negative and her blood counts continued to drop. Again, she received additional transfusion with a total of 4 units. We discussed possible colonoscopy. However, at that point, the patient decided that she no longer wanted to aggressively pursue these types of interventions. Therefore, we did opt for CT abdomen without contrast in light of her renal function that did show some colitis. Once her hemoglobin appeared to be stabilizing a bit, we had Palliative Care get involved with the patient as well and ultimately, the patient decided that she was comfortable with the idea of going home with Home Health with the idea that she could convert to hospice should the situation get worse. She did not want to continue to pursue any aggressive treatment. With that, the patient was felt to be appropriate for discharge. The patient was seen in consultation by Dr. Fish. She had grown E coli and Enterococcus, and he felt the patient had asymptomatic bacteria and did not recommend ongoing treatment for urinary tract infection. PHYSICAL EXAMINATION: VITAL SIGNS: At the time of discharge, temperature was 99.0, pulse 75, respirations 16, O2 saturation 96% on room air, and BP was 108/62. GENERAL: She was awake and alert, pleasant and cooperative. HEART: Regular. LUNGS: Clear. ABDOMEN: Benign. EXTREMITIES: Had no significant edema. DISPOSITION: The patient is discharged to home. She will be transported via ambulance. DISCHARGE MEDICATIONS: She will be on: 1. Flagyl 500 mg b.i.d. 2. Vancomycin 125 mg q.i.d. 3. She will continue levothyroxine 125 mcg daily. 4. Amiodarone 200 mg daily. 5. Plavix 75 mg daily. 6. Lasix 20 mg daily. 7. Aspirin 81 mg daily. DIET: She will be on a heart healthy diet. ACTIVITY: As tolerated. FOLLOWUP: She will follow up with Dr. Wilber Weiss, Dr. Kael Freeman, Dr. Fish as needed, and Dr. Julian Hunt. She can return to the hospital at any time should she have the need to do so. TIME SPENT: Total time in discharge activities was 45 minutes. Job ID: [id number]
== END 2019-03-16 15:09 | disposition home or self-care (01) | DRG 252 ==
LOC: ERS 10:01 → ERHOLD 13:01 → 2NO 22:00 → T4-A 03-10 01:27
PROVIDERS: ADMIT Internal Medicine; ATTEND Internal Medicine
PROC: 30233N1 Transfusion of Nonautologous Red Blood Cells into Peripheral Vein, Percutaneous Approach (ICD-10-PCS; 2019-03-07)
PROC: 06H03DZ Insertion of Intraluminal Device into Inferior Vena Cava, Percutaneous Approach (ICD-10-PCS; principal; 2019-03-13)
PROC: 0DJ08ZZ Inspection of Upper Intestinal Tract, Via Natural or Artificial Opening Endoscopic (ICD-10-PCS; 2019-03-15)
DX: I82.413 Acute embolism and thrombosis of femoral vein, bilateral (principal); L89.153 Pressure ulcer of sacral region, stage 3; I50.23 Acute on chronic systolic (congestive) heart failure; N17.9 Acute kidney failure, unspecified; N39.0 Urinary tract infection, site not specified; I13.0 Hypertensive heart and chronic kidney disease with heart failure and stage 1 through stage 4 chronic kidney disease, or unspecified chronic kidney disease; K92.1 Melena; I82.443 Acute embolism and thrombosis of tibial vein, bilateral; I48.0 Paroxysmal atrial fibrillation; I25.10 Atherosclerotic heart disease of native coronary artery without angina pectoris; N18.3 Chronic kidney disease, stage 3 (moderate); E11.22 Type 2 diabetes mellitus with diabetic chronic kidney disease; E78.5 Hyperlipidemia, unspecified; E03.9 Hypothyroidism, unspecified; E86.0 Dehydration; B96.20 Unspecified Escherichia coli [E. coli] as the cause of diseases classified elsewhere; B95.2 Enterococcus as the cause of diseases classified elsewhere; I08.3 Combined rheumatic disorders of mitral, aortic and tricuspid valves; M16.0 Bilateral primary osteoarthritis of hip; D63.1 Anemia in chronic kidney disease; R11.2 Nausea with vomiting, unspecified; R51 Headache; Z86.73 Personal history of transient ischemic attack (TIA), and cerebral infarction without residual deficits; Z86.718 Personal history of other venous thrombosis and embolism; Z88.5 Allergy status to narcotic agent; Z88.8 Allergy status to other drugs, medicaments and biological substances; I25.2 Old myocardial infarction; Z95.5 Presence of coronary angioplasty implant and graft; Z79.899 Other long term (current) drug therapy; Z79.4 Long term (current) use of insulin; Z79.82 Long term (current) use of aspirin; Z79.02 Long term (current) use of antithrombotics/antiplatelets
CPT/HCPCS: 36415; 36416; 36430; 37191; 51701; 70450; 71045; 74176; 76942; 80048; 80053; 81003; 81015; 82274; 82550; 83605; 83735; 83880; 84443; 84484; 85014; 85018; 85025; 86850; 86900; 86901; 87077; 87086; 87186; 93005; 93306; 93970; 96360; 96361; A4353; C1769; C1880; C9113; J0696; J1644; J1940; J2405; J2550; J3490; P9016; Q0162; Q9967; S0028

== ENCOUNTER 2019-07-04 09:44 | Inpatient (IN) | payer MEDICARE, OTHER ==
[2019-07-04] MEDS ORDERED: Ondansetron PF 4 MG/2 ML Vial ONE (09:59)
[2019-07-04] MEDS ORDERED: Fentanyl 100 MCG/2 ML VIAL ONE (10:20)
--- NOTE | 2019-07-04 10:34 | RAD ---
PORTABLE CHEST: Date: 07/04/2019 INDICATION: Pain. Nausea and vomiting. COMPARISON: 03/07/2019. FINDINGS: Lungs appear clear of infiltrate. Stranding in both mid lung vasquez appear stable from prior exam. Th ere is no evidence of vascular congestion, edema, or effusion. Heart and mediastinum appear unremarka ble and stable. IMPRESSION: No acute process. POS: [facility]
[2019-07-04 11:06] LABS: Hemoglobin 4.6 g/dL (12.0-16.0); Mean Corpuscular HGB CONC 28.9 g/dL (32.0-36.0); Mean Corpuscular Hemoglobin 21.8 pg (27.0-31.0); Mean Corpuscular Volume 75.2 fL (78.0-98.0); Mean Platelet Volume 8.3 fL (7.4-10.4); Platelet Count 595 thou/uL (130-400); RBC Distribution Width 16.7 % (11.5-14.5); Red Blood Cell (RBC) Count 2.12 mill/uL (4.20-5.40); White Blood Cell (WBC) Count 23.7 thou/uL (4.8-10.8)
[2019-07-04 11:20] LABS: ALT (SGPT) 24 U/L (8-55); AST (SGOT) 25 U/L (5-34); Albumin 2.7 g/dL (3.4-4.8); Alkaline Phosphatase 149 U/L (40-110); Anion Gap 20 mmol/L (10-20); BUN (Urea Nitrogen) 44 mg/dL (9.8-20.1); Bilirubin, Total 0.4 mg/dL (0.2-1.2); CK (CPK) 17 U/L (29-168); Calc. Creatinine Clearance 0 mL/min (70-130); Calcium 8.1 mg/dL (7.8-10.44); Carbon Dioxide 12 mmol/L (23-31); Chloride 106 mmol/L (98-107); Estimated GFR-MDRD 21; Globulin 3.4 g/dL (2.4-3.5); Glucose 309 mg/dL (83-110); Lipase 33 U/L (8-78); Potassium 4.3 mmol/L (3.5-5.1); Protein, Total 6.1 g/dL (6.0-8.3); Sodium 134 mmol/L (136-145)
[2019-07-04 11:32] LABS: Bacteria/HPF None Seen HPF (None Seen); Bilirubin Negative (Negative); Blood, Urine 1+ (Negative); Clarity Turbid (Clear); Glucose, Urine (Dipstick) Normal (Negative); Leukocyte Negative Leu/uL (Negative); Nitrite Negative (Negative); Protein, Urine (Dipstick) 10 mg/dL (Neg-Trace); Renal Epithelial 0-3 HPF (None Seen); Transitional Epithelial 0-3 HPF (None Seen); Urobilinogen Normal mg/dL (Less than 2); WBC/HPF 0-3 HPF (0-3)
[2019-07-04 11:50] LABS: CKMB 1.2 ng/mL (0-6.6)
[2019-07-04 11:59] LABS: Anisocytosis SLIGHT = 6-15 cells (100X) (0-5/hpf); Elliptocytes SLIGHT = 2-5 cells (100X) (0-1/hpf); Hypochromia MODERATE=16-30 cells (100X) (0-5/hpf); Lymphocytes 15 % (21-51); MDiff Complete? YES; Microcytosis SLIGHT = 6-15 cells (100X) (0-5/hpf); Monocytes 4 % (0-10); Neutrophil 80 % (42-75); Platelet Morphology Comment Appears Increased; Polychromasia SLIGHT = 2-3 cells (100X) (0-2/hpf); Reflex for Review?? YES; Schistocytes SLIGHT = 2-5 cells (100X) (0-1/hpf)
--- NOTE | 2019-07-04 12:48 | CT ---
CT Abdomen Pelvis WO Con 07/04/2019 9:54 AM HISTORY: Right upper and lower quadrant abdominal pain COMPARISON: 03/15/2019 Technique: Multiple contiguous axial CT images are obtained through the abdomen and pelvis without IV contrast. Coronal reformats are provided. FINDINGS: This examination is limited for the evaluation of solid organs and vascular structures due to the lac k of intravenous contrast. Lower Chest: Minimal bilateral pleural effusions are present with groundglass densities at each lung base probably attributable to atelectasis. Vascular calcifications are seen in the visualized thoracic aorta and coronary arteries. Abdomen: Liver: Grossly normal non-enhanced CT appearance. Gallbladder: Increased density material seen layering dependently within the gallbladder lumen also p resent on the prior study which may represent cholelithiasis and/or gallbladder sludge. Pancreas: Grossly normal nonenhanced CT appearance. Spleen: Calcified granuloma is present. Adrenals: Grossly normal nonenhanced CT appearance. Kidneys: Stable exophytic hypodense lesion inferior pole right kidney likely related to a renal cyst. No hydronephrosis is present, and no renal calculus is identified. Ureters: No ureteral calculus is seen.. Pelvis: Urinary bladder: Decompressed but otherwise grossly normal in appearance. Reproductive Organs: Evidence of hysterectomy. Lymph Nodes: No enlarged lymph nodes. Bowel: A moderate amount of retained fecal material is seen in the distal sigmoid colon and in the re ctum. Colonic diverticulosis is present involving the descending and sigmoid colon without CT evidence of diverticulitis. There previously seen wall thickening involving the sigmoid colon is not visualized on this exam. Peritoneum\Retroperitoneum: There is presacral edema and small amount of fluid. This was also present on the prior exam. Vessels: Vascular calcifications are seen in the abdominal aorta and involving the iliac arteries as well as mesenteric vessels. IVC filter is again seen. Abdominal Wall: within normal limits. Bones: Severe bilateral hip osteoarthritis is present with severe joint space narrowing and deformity of each femoral head and dysplastic changes involving each femoral head. Multilevel degenerative changes are seen in the lower thoracic and visualized lumbar spine. Osteopenia is present. IMPRESSION: 1. No renal or ureteral calculi are seen bilaterally. 2. Tiny bilateral pleural effusions. 3. Moderate amount retained fecal material seen in the rectum. 4. Presacral fluid and edema. This is stable when compared to the prior study but is overall nonspeci fic. 5. Dense vascular calcifications. 6. Colonic diverticulosis. 7. Cholelithiasis and/or gallbladder sludge. 8. Right renal cyst.
[2019-07-04 12:49] LABS: Actual Bicarbonate (HCO3a) 8.3 mEq/L (22-28); Analyzer IN Cardio ER; Base Excess (BEa) -16.4 mEq/L (-2.0 to +3.0); CO2 Tension 16.4 mmHg (35.0-45.0); Calcium, Ionized 1.14 mmol/L (1.12-1.30); Carboxyhemoglobin (COHb) 0.3 gm% (0.0-3.0); Hemoglobin (Hb) 4.7 g/dL (12.0-16.0); O2 Tension (PaO2) 115.4 mmHg (> 60.0); Potassium - ABG Lab 4.29 mmol/L (3.70-5.30); pH, Arterial 7.32 (7.35-7.45)
[2019-07-04 12:50] LABS: Puncture Site LBA
--- NOTE | 2019-07-04 12:57 | RAD ---
EXAM: XR Chest Insp/Exp PROVIDED CLINICAL HISTORY: No central line placement. COMPARISON: 07/04/2019 at 1013 hours. FINDINGS: Cardiac silhouette is magnified by projection. Linear densities persist in the midlung zones bilatera lly which may represent mild atelectasis versus scarring. No pleural effusion, consolidation, or pneumothorax is seen. Vascular calcifications are seen in the thoracic aorta and in the coronary venecia dimitrios. Osteopenia is present. Small radiopaque catheter overlies the left neck soft tissues. No other interval change from prior exam. IMPRESSION: 1. No obvious pneumothorax or pleural effusion is evident on this exam. 2. Scarring versus atelectasis in the midlung zones bilaterally.
[2019-07-04] MEDS ORDERED: Cefepime 2 GM VIAL ONE (13:48)
[2019-07-04] MEDS ORDERED: Acetaminophen 325 MG TAB PO PRN (14:08)
[2019-07-04] MEDS ORDERED: Ondansetron PF 4 MG/2 ML Vial IVP PRN (14:08)
[2019-07-04] MEDS ORDERED: Sodium Bicarb 50 MEQ/50 ML Abboject 8.4% SYRINGE IVP SCH (15:45)
--- NOTE | 2019-07-04 15:46 | CON ---
DATE OF CONSULTATION: 07/04/2019 HISTORY OF PRESENT ILLNESS: Natalia Rivas is an 88-year-old female with severe aortic stenosis. She is not a candidate for TAVR because of her deconditioning and weakness. She presented with abdominal discomfort, tachypnea, and severe anemia. She subsequently has been admitted for further evaluation and transfusion. I discussed the end of life issues with her. She told me she never wants to be put on life support. PAST MEDICAL HISTORY: Remarkable for, 1. A GI bleed in February. She had upper endoscopy but declined lower endoscopy. 2. History of DVT. 3. History of inferior vena cava placement at the end of last year by Dr. Freeman. 4. Severe aortic stenosis. 5. Chronic atrial fibrillation. 6. History of coronary artery disease with three stents in the past on aspirin and Plavix. Apparently, four more stents were placed in [place]. 7. History of left ventricular systolic dysfunction with ejection fraction of 35 % on top of her aortic stenosis. 8. History of TIAs and strokes in the past. 9. Diabetes. 10. Hypothyroidism. 11. History of cataract surgery. 12. Status post hysterectomy. 13. History of DVT as mentioned. FAMILY HISTORY: Positive for diabetes and vascular disease. SOCIAL HISTORY: Not obtained. REVIEW OF SYSTEMS: 10 point review of systems completed. Not accurately obtainable secondary to her tachypnea. PHYSICAL EXAMINATION: VITAL SIGNS: Respiratory rates in the 30s. She has a weak pulse. The [employer] has not picked a blood pressure. Heart rates in the 70s. GENERAL: She is extremely pale. HEENT: Pupils are equal. EYES: Sclerae are anicteric. LUNGS: Remarkable for coarse equal breath sounds. HEART: Regular rhythm. Grade 2/6 systolic murmur. ABDOMEN: Soft and minimally tender. EXTREMITIES: Without asymmetry. LABORATORY DATA: White count 23, hemoglobin 4.6, platelets 595. PH 7.32, CO2 of 16, PO2 of 115. Hemoglobin is 4.7. She has had 1 unit of blood. Sodium 134, potassium 4.3, chloride 106, bicarb 12, BUN 44, and creatinine 2.23. Her creatinine at discharge in February was 1.39. IMPRESSION: Severe anemia with intravascular volume depletion secondary to chronic/subacute blood loss on top of severe aortic stenosis and decreased ejection fraction. She needs probably 3 or 4 more units of blood, slowly, at least 3. By her wishes, she is do not resuscitate patient. Palliative care will be consulted for family assistance. Unless she dramatically improves in the last 12 hours, would not expect her to survive this. Critical care time 45 min. Job ID: [id number] MTDD
[2019-07-04 17:22] LABS: Critical Call Chem Troponin I RESULT DECREASING; Troponin I 0.327 ng/mL (< 0.028)
[2019-07-04] MEDS ORDERED: Dextrose 50% Abboject 50 ML SYRINGE IVP PRN (17:43)
[2019-07-04] MEDS ORDERED: Dextrose 5% in Water 1,000 ML IV PRN (17:43)
[2019-07-04] MEDS: Insulin Regular 300 UNITS/3 ML VIAL SC PRN (18:19)
--- NOTE | 2019-07-04 18:48 | CON ---
DATE OF CONSULTATION: 07/04/2019 CHIEF COMPLAINT: Weakness. HISTORY OF PRESENT ILLNESS: Ms. Rivas is an 88-year-old woman who came to the emergency room with weakness. She reported right-sided abdominal pain to the ER physician; however, currently she tells me she has no abdominal pain. She has had no nausea, vomiting, diarrhea, or constipation. She has seen no red blood in her stool or black stools. She just does not feel good. In the emergency room, she was found to have severe anemia. GI was consulted to evaluate that. She has a history of severe aortic stenosis and atrial fibrillation, had multiple stents placed in her heart in 02/2019, and has been on Plavix. She was seen by Dr. Weiss back in 02/2019 for anemia and suspected bleeding, and she underwent upper endoscopy, which was normal. She declined colonoscopy at the time. She had a CT scan of her abdomen and pelvis today, which showed some cholelithiasis versus gallbladder sludge and diverticular disease of the colon. She had some stool noted in the rectum. PAST MEDICAL HISTORY: 1. Coronary artery disease with multiple coronary stents. 2. History of DVT with IVC filter in place. 3. Aortic stenosis. 4. Chronic atrial fibrillation. 5. History of stroke and TIA. 6. Diabetes. 7. Hypothyroidism. PAST SURGICAL HISTORY: 1. Hysterectomy. 2. Cataract surgery. 3. Upper endoscopy back in February. FAMILY HISTORY: Negative for GI malignancies. SOCIAL HISTORY: No alcohol, tobacco, or drugs. She does not ambulate and states that she lives at home and her daughter takes care of her. ALLERGIES: CODEINE, MORPHINE, STATINS, AND PREDNISONE. MEDICATIONS: Current inpatient medications include: 1. Insulin. 2. Pantoprazole. At home, she had been on: 1. Clopidogrel. 2. Aspirin. 3. Amiodarone. 4. Furosemide. 5. Levothyroxine. At some point, she had been on: 1. Metronidazole. 2. Vancomycin. REVIEW OF SYSTEMS: Negative x10 systems reviewed except as stated in the history of present illness. PHYSICAL EXAMINATION: VITAL SIGNS: Temperature is 97.7, blood pressure 125/98, and pulse 84. GENERAL: She is in no acute distress. She complains of being thirsty. She is alert and oriented. HEENT: Her eyes have no scleral icterus. Oropharynx is clear without lesions. NECK: No cervical or supraclavicular lymphadenopathy. LUNGS: Clear to auscultation bilaterally. HEART: Regular rate and rhythm without murmur. ABDOMEN: Soft, nontender, and nondistended. Bowel sounds are present. EXTREMITIES: No lower extremity edema. RECTAL: Light brown stool in the rectal vault. LABORATORY DATA: White blood cell count 23.7, hemoglobin 4.6, MCV 75, and platelets 595. Creatinine 2.23. Albumin 2.7, bilirubin 0.4, AST 25, ALT 24, and alkaline phosphatase 149. IMPRESSION: 1. Severe microcytic anemia. She has been on Plavix for multiple coronary stents. She also has a history of atrial fibrillation with severe aortic stenosis and history of deep vein thrombosis, for which she underwent inferior vena cava filter. Her ferritin was in the lower normal range back in November, consistent with iron deficiency. 2. Symptomatic anemia, which could have some acute on chronic component. There is no evidence of overt bleeding at this time with light brown stool in the rectal vault. 3. Acute renal insufficiency. RECOMMENDATIONS: 1. She is receiving 3 units of transfusion and is on her 3rd unit now. 2. Proton pump inhibitor IV. 3. We will start a clear liquid diet as she has no overt bleeding at this point. 4. She had negative upper endoscopy back in February, and declined lower endoscopy at that time. We will see how she responds clinically to blood transfusion and she will likely require iron supplementation as well. Job ID: [id number]
[2019-07-04] MEDS: Pantoprazole 40 MG VIAL IVP SCH (20:36)
[2019-07-04] MEDS ORDERED: Vancomycin 1 GM in Premix Bag 1 BAG IVPB SCH (21:00)
[2019-07-04] MEDS ORDERED: Cefepime 1 GM in Sodium Chloride 0.9% 100 ML IVPB SCH (21:00)
--- NOTE | 2019-07-04 21:03 | PDOC.EVN ---
Event Note - Event Note Event Note: H&P dictated Admitted for abdominal pain with negative Ct abdomen, FOBT negative, severe anemia w..hgb of 4.3; has severe Ao stenosis, unclear whether she was taking any anticoagulant for afib. Due to her overall poor prognosis, palliative also consulted. It appears pt lives alone.
[2019-07-04 22:55] LABS: Hemoglobin 8.4 g/dL (12.0-16.0)
[2019-07-05 04:27] LABS: ALT (SGPT) 78 U/L (8-55); AST (SGOT) 91 U/L (5-34); Albumin 2.5 g/dL (3.4-4.8); Alkaline Phosphatase 133 U/L (40-110); Anion Gap 14 mmol/L (10-20); BUN (Urea Nitrogen) 46 mg/dL (9.8-20.1); BUN/Creatinine Ratio 22.12; Bilirubin, Total 0.8 mg/dL (0.2-1.2); Calc. Creatinine Clearance 24 mL/min (70-130); Calcium 7.7 mg/dL (7.8-10.44); Carbon Dioxide 22 mmol/L (23-31); Chloride 103 mmol/L (98-107); Estimated GFR-MDRD 23; Globulin 3.4 g/dL (2.4-3.5); Glucose 83 mg/dL (83-110); Phosphorus 3.5 mg/dL (2.3-4.7); Potassium 3.5 mmol/L (3.5-5.1); Protein, Total 5.9 g/dL (6.0-8.3); Sodium 135 mmol/L (136-145)
[2019-07-05 05:55] LABS: Hemoglobin 8.5 g/dL (12.0-16.0)
[2019-07-05] MEDS: Pantoprazole 40 MG VIAL IVP SCH ×2 (09:38→21:02)
--- NOTE | 2019-07-05 09:43 | PRG ---
DATE OF SERVICE: 07/05/2019 SUBJECTIVE: Ms. Rivas has a little bit of mild periumbilical abdominal discomfort. She has tolerated a liquid diet. There has been no melena or hematochezia, only brown stool noted. She has been stable hemodynamically. She has received 3 units of blood and her hemoglobin has come up from 4.6 to 8.4, stable this morning at 8.5. She declines any consideration of colonoscopy for anemia investigation. OBJECTIVE: VITAL SIGNS: Blood pressure 138/85, pulse 99, temperature 99.5, and 97% oxygen saturation on 2 L nasal cannula. GENERAL: Elderly frail, lying in bed comfortably, in no acute distress. HEART: Regular rate and rhythm. Systolic murmur. LUNGS: Clear to auscultation bilaterally. ABDOMEN: Bowel sounds present. Soft and nontender. EXTREMITIES: No peripheral edema. LABORATORY STUDIES: Hemoglobin up to 8.5 and hematocrit 25.5. Sodium 135, potassium 3.5, BUN 46, and creatinine 2.08. Total bilirubin 0.8, alkaline phosphatase 133, AST 91, and ALT 78. Troponin 0.43. ASSESSMENT/PLAN: Severe microcytic anemia. This is in the context of long-term Plavix use for multiple coronary stents as well as severe aortic stenosis and history of atrial fibrillation and deep venous thrombosis, for which she has undergone inferior vena cava filter placement. Note, she had normal EGD in February 2019, but has declined colonoscopy. Hemoglobin is stable after transfusion today. I see no evidence of brisk or overt bleeding. I agree with Dr. Valerio and with the patient that she would be fairly high risk for colonoscopy for further investigation of the anemia. Given her overall comorbidities and her wishes, we are not going to plan on any endoscopic investigations. If Plavix is continued, we would recommend close interval monitoring of H and H, further transfusion as needed. Her diet can be advanced. GI is going to sign off, but please call back anytime with questions or concerns. Job ID: [id number]
--- NOTE | 2019-07-05 09:55 | PRG ---
DATE OF SERVICE: 07/05/2019 SUBJECTIVE: Ms. Rivas looks 100% better today. She actually . Her hemoglobin is up over a grams down after 3 units of blood. OBJECTIVE: LUNGS: Clear. HEART: Regular rhythm. ABDOMEN: Soft. EXTREMITIES: Without edema. LABORATORY DATA: Bicarb is up from 12 to 22. Liver enzymes are mildly elevated. Her albumin is 2.5. IMPRESSION: 1. Blood loss anemia that is chronic and severe. 2. Metabolic acidosis secondary to decreased oxygen delivery with severe anemia and critical aortic stenosis. 3. Critical aortic stenosis. 4. Do not resuscitate status. I reconfirmed this with her again today and also her daughter Lauren. I did update Lauren by phone. Her mother is improved dramatically compared to yesterday. May actually survive this. We will continue with care in the critical care unit. Recheck lab in the morning. Job ID: [id number]
--- NOTE | 2019-07-05 10:19 | CON ---
DATE OF CONSULTATION: HISTORY OF PRESENT ILLNESS: The patient is an 88-year-old woman with a history of coronary artery disease, atrial fibrillation, and severe aortic stenosis, who presented with weakness and abdominal discomfort. The patient has a long history of coronary artery disease. She previously underwent PTCA and stent placement in the [facility] back in 2003. She has subsequently been on medical therapy. She also has a history of atrial fibrillation. The patient most recently presented with worsening congestive heart failure and aortic stenosis. The patient was sent to [place] for evaluation for possible TAVR. She subsequently underwent repeat PTCA and stent placement,and had multiple stents placed into her coronary arteries. The patient has been on Plavix and aspirin. She was most recently admitted with deep venous thrombosis. She had placement of an IVC filter. The patient was felt to be a poor candidate for TAVR because of her severe deconditioning. She presented with increasing weakness. She denied having any chest discomfort. PAST MEDICAL HISTORY: 1. Aortic stenosis. 2. DVT. 3. Atrial fibrillation. 4. CAD. 5. History of GI hemorrhage. 6. Diabetes mellitus. 7. Chronic renal failure. 8. Dyslipidemia. PAST SURGICAL HISTORY: Cataract surgery. ALLERGIES: CODEINE, MORPHINE, PREDNISONE, AND PHOSPHATE. SOCIAL HISTORY: Nonsmoker. MEDICATIONS ON ADMISSION: See nursing list. REVIEW OF SYSTEMS: Not obtainable. PHYSICAL EXAMINATION: GENERAL: Pale woman, in mild distress. VITAL SIGNS: Blood pressure 125/70. NECK: Full. LUNGS: Coarse breath sounds bilaterally. HEART: Regular rate and rhythm. Normal S1 and S2 with a 3/6 systolic ejection murmur. ABDOMEN: Distended. EXTREMITIES: Trace edema. LABORATORY DATA: Sodium 134, potassium 4.3, chloride 106, bicarbonate 12, BUN 44, creatinine 2.2, glucose 309, White blood cell count 23.7, hemoglobin 4.6, hematocrit 15.9, platelets are 595. CK-MB was 1.2, troponin was 0.428. Chest x-ray revealed her to have normal cardiac silhouette, no evidence of effusion. IMPRESSION: 1. Gastrointestinal hemorrhage. 2. History of percutaneous transluminal coronary angioplasty and stent placement. 3. Severe aortic stenosis. 4. Renal insufficiency. 5. Mitral regurgitation. 6. History of IVC filter. 7. History of deep venous thrombosis. 8. Dyslipidemia. This unfortunate woman has developed a GI hemorrhage. She is felt to be a poor candidate for TAVR because of her severe mobility issues. From a cardiac standpoint, she has had a significant GI bleed, so she will need to be taken off Plavix and aspirin. She certainly will be with her multiple stents at high risk of recurrent thrombosis. This patient is otherwise not an appropriate patient for further cardiac intervention and we would continue to treat her medically. She is being actively transfused at this time. The patient's prognosis is very guarded. Critical care time 30 minutes. Job ID: [id number] MTDD
[2019-07-05] MEDS ORDERED: Amiodarone 150 MG, Admixture Fee 1 EACH in Dextrose 5% in Water 100 ML IVPB SCH (10:45)
[2019-07-05 11:20] VITALS: BMI 30.4
[2019-07-05] MEDS: Amiodarone 450 MG, Admixture Fee 1 EACH in Dextrose 5% in Water 250 ML IVPB SCH ×2 (11:35→18:04)
--- NOTE | 2019-07-05 14:32 | HP ---
CHIEF COMPLAINT: Fatigue, tiredness, and anemia. HISTORY OF PRESENT ILLNESS: An 88-year-old female living alone for the most part, presented with a 2-day history of right upper and lower quadrant pain. The patient did not have any fever, chest pain, or productive cough. She did not notice any blood in the urine or stool. On initial evaluation, the patient looked quite pale, hemodynamically stable with pulse of 74 and systolic blood pressure of 120. CT abdomen did not show any acute abnormality. Her hemoglobin was 4.3, white count 23.7. Three units of RBCs have been scheduled for transfusion. Blood cultures have been scheduled given her elevated leukocytosis. The patient also scheduled to receive vancomycin, cefepime, as well as Levaquin and 2 L of IV hydration. On my exam, the patient looked quite pale and in mild distress. She is able to give me very sketchy history. Most of the information gathered from the ER doc as well as the chart review. The patient has significant history of coronary and peripheral arterial disease with stents, DVT and status post IVC filter remotely. The patient is on Aspirin, Plavix and she has a severe aortic stenosis. She has several risk factors for chronic anemia. The patient had recent GI workup for anemia by Dr. Weiss in February 2019. At that time, she had negative EGD. She declined going through colonoscopy study. REVIEW OF SYSTEMS: Not obtainable. ALLERGIES: CODEINE, MORPHINE, STATIN, AND PREDNISONE. MEDICAL HISTORY: 1. Severe aortic stenosis. 2. Chronic atrial fibrillation, not currently on any anticoagulation. 3. History of DVT, status post IVC filter. 4. 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 5. Type 2 diabetes mellitus. 6. Hypothyroidism. SURGICAL HISTORY: Cataract surgery, EGD in February 2019, and hysterectomy. FAMILY HISTORY: Not obtainable. SOCIAL HISTORY: The patient lives alone. I believe she has a daughter, who takes care of her. MEDICATIONS: She is on; 1. Amiodarone. 2. Aspirin. 3. Plavix. 4. Lasix. 5. Levothyroxine. 6. Pantoprazole. 7. Insulin. PHYSICAL EXAMINATION: VITAL SIGNS: She is afebrile. Blood pressure in the monitor showed 125/84 with pulse of 74. The patient is quite pale and she is in mild distress. She is able to verbalize only few words at this time. HEENT: Pupils equal, round, and reactive to light. Anicteric. Mucous membranes are dry. CARDIOVASCULAR: Irregular rhythm with regular rate. LUNGS: With anterior auscultation. No adventitious lung sounds. EXTREMITIES: Muscular atrophy, but no rash or edema appreciated. LABORATORY DATA: Significant for white count of 23.7, hemoglobin of 4.6 with MCV of 75, platelets of 595,000. Electrolyte panel significant for creatinine of 2.23, sodium 134, BUN of 44. Liver profile with Albumin of 2.7, bilirubin of 0.4, AST 25, ALT 24, alkaline phosphatase 149. IMAGING STUDIES: CT abdomen did not show any acute abnormality. IMPRESSION AND PLAN: 1. This is an 88-year-old female, presented with 2-day history of abdominal pain and severe microcytic chronic anemia. 2. History and exam did not suggestive of any acute bleed. She is hemodynamically stable, but however, given her severe acuity, she will be admitted in the intensive care unit until she is stable to be moved to the medical floor. Meanwhile, we will consult the GI for their recommendation. Three units of the RBCs have been scheduled to be transfused. Will add IV PPI. We will continue with cefepime and Levaquin until more clear clinical picture evolves. 3. Leukocytosis. Chest x-ray did not show any pneumothorax or pleural effusion, only atelectasis in the mid lung zone. Abdominal and pelvis CT without contrast showed no renal or ureteral calculi, very tiny pleural effusion bilaterally, chronic diverticulosis without acute diverticulitis, cholelithiasis/gallbladder sludge. Liver function test; mildly elevated alkaline phosphatase, AST was 25 and ALT was 24, did not suggestive of any acute cholecystitis. So, elevated white count, unlikely any infectious etiology, it could be acute stress demargination. 5. Abnormal troponin with 0.42. The patient denies any lily chest pain. This could be mismatch type 2 metabolic mismatch demand rather cardiac ischemia, though she does have coronary artery disease. Follow the clinical course. 6. Acute kidney injury with creatinine of 2.3 and BUN of 44. This again could be prerenal versus acute on chronic kidney disease. After the volume resuscitation as well as blood product transfusion, will follow the trend. 7. Severe aortic stenosis, probably also contributing to her anemia. Based on her medical conditions of severe coronary artery disease, on aspirin and Plavix, along with severe aortic stenosis, this could be anemia exacerbated by being on antiplatelet and with underlying coexisting condition of aortic stenosis. Given her age, she might not be the strong candidate for any TAVR at this point in time. We will monitor closely. 8. Thrombocytosis, probably reactive. 9. We will hold aspirin, Plavix, and any anticoagulation for DVT prophylaxis. Started on IV PPI. GI consult has been placed. Keep her n.p.o. in case they have decided to go for any endoscopy study. Again, this may not be acute condition, likely chronic comorbidities contributing to her microcytic anemia. 10. Given her advanced age, I am also consulting Palliative Care to help us with further aggressive medical management versus comfort care approach. 11. Currently, she is DNR. Job ID: [id number] [facility]
--- NOTE | 2019-07-05 14:57 | EKG ---
Test Reason : NV Blood Pressure : / mmHG Vent. Rate : 074 BPM Atrial Rate : 072 BPM P-R Int : 000 ms QRS Dur : 170 ms QT Int : 488 ms P-R-T Axes : 000 068 123 degrees QTc Int : 541 ms Poor data quality, interpretation may be adversely affected Wide QRS rhythm Left bundle branch block Abnormal ECG Confirmed by DIANA BOLAND, STU (12), editor school photograph HAL JOHNSON (16) on 07/05/2019 2:56:54 PM Referred By: Confirmed By:STU ORTIZ MD
--- NOTE | 2019-07-05 14:58 | EKG ---
Test Reason : Blood Pressure : / mmHG Vent. Rate : 073 BPM Atrial Rate : 074 BPM P-R Int : 000 ms QRS Dur : 178 ms QT Int : 488 ms P-R-T Axes : 000 -09 150 degrees QTc Int : 537 ms Wide QRS rhythm Left bundle branch block Abnormal ECG No changes Confirmed by DIANA BOLAND, STU (12), metropolitan editor HAL JOHNSON (16) on 07/05/2019 2:58:15 PM Referred By: Confirmed By:STU ORTIZ MD
--- NOTE | 2019-07-05 18:06 | PDOC.HOSPP ---
- Subjective Encounter Date: 07/05/19 Encounter Time: 17:50 Subjective: f/u for severe, symptomatic anemia likely due to GI loss and Iron-deficiency with chronic disease state. s/p 3u PRBC's with Hgb increased from 4 to 8. - Objective Vital Signs & Weight: Vital Signs (12 hours) Pulse Ox 07/05/19 08:00 100 Weight Admit Weight 182 lb Weight 182 lb 8.684 oz Most Recent Monitor Data Heart Rate from ECG 88 NIBP 136/82 NIBP BP-Mean 100 Respiration from ECG 22 SpO2 100 I&O: 07/04/19 07/05/19 07/06/19 06:59 06:59 06:59 Intake Total 2790 100 Output Total 224 255 Balance 2566 -155 Result Diagrams: 07/05/19 05:41 07/05/19 03:40 Additional Labs: Accuchecks 07/05/19 07/05/19 07/05/19 16:41 11:49 07:25 POC Glucose 139 H 127 H 88 07/05/19 07/04/19 00:18 20:29 POC Glucose 201 H 304 H Microbiology 07/04/19 12:49 Venous blood - Neck Blood Culture - Preliminary Specimen has been received and culture in progress. No Growth to date. 07/04/19 12:21 Central Line - Left external jugular vein Blood Culture - Preliminary Specimen has been received and culture in progress. No Growth to date. Laboratory Tests 06/08/15 06/08/15 07/04/19 05:31 05:31 10:41 Hgb MCV Plt Count Creatinine 2.23 H AST 25 ALT 24 Alkaline Phosphatase 149 H Triglycerides 250 H Cholesterol 187 LDL Cholesterol, Calc 93 HDL Cholesterol 44 Heart Disease Risk Ratio 4.3 Lipase 33 TSH 3rd Generation 5.3639 H 07/04/19 07/04/19 07/05/19 10:41 22:50 03:40 Hgb 4.6 L* 8.4 L MCV 75.2 L Plt Count 595 H Creatinine AST 91 H ALT 78 H Alkaline Phosphatase 133 H Triglycerides Cholesterol LDL Cholesterol, Calc HDL Cholesterol Heart Disease Risk Ratio Lipase TSH 3rd Generation Radiology Reviewed by me: Yes (CT abd/pel - GB sludge/cholelithiasis, no obstruction) EKG Reviewed by me: Yes (Tele - A-fib in 's) Hospitalist ROS - Medication Medications: Active Medications Generic Name Dose Route Start Last Admin Trade Name Flacoq PRN Reason Stop Dose Admin Amiodarone HCl 450 mg/ 259 mls @ 0 mls/hr 07/05/19 10:45 07/05/19 18:04 Miscellaneous Medication 1 IVPB 259 mls each/ Dextrose/Water INF DEVAN Administration Protocol As Directed Insulin Human Regular 0 units 07/04/19 17:43 07/04/19 18:19 Humulin R SC 13 unit .AGGRESSIVE SLIDING PRN Administration AGGRESSIVE SLIDING SCALE Protocol Pantoprazole Sodium 40 mg 07/04/19 21:00 07/05/19 09:38 Protonix IVP 40 mg Q12HR DEVAN Administration - Exam General Appearance: awake alert, ill appearing Eye: PERRL, anicteric sclera ENT: normocephalic atraumatic, no oropharyngeal lesions, dry oral mucosa Neck: supple, symmetric, no JVD, no thyromegaly, no lymphadenopathy Heart: no gallops, no rubs, normal peripheral pulses, irregular Heart - other findings: S1, S2 Respiratory: CTAB, no wheezes, no rales, no ronchi, normal chest expansion Gastrointestinal: soft, non-distended, normal bowel sounds, no palpable masses, tender to palpation Extremities: no cyanosis, no clubbing, no edema Skin: normal turgor, no lesions Neurological: cranial nerve grossly intact, no new deficit Musculoskeletal: generalized weakness Psychiatric: oriented to person, oriented to place, flat affect Hosp A/P (1) Symptomatic anemia Code(s): D64.9 - ANEMIA, UNSPECIFIED Status: Acute Plan: s/p 3u PRBC's, serial monitoring, likely GI blood loss, no endoscopy planned and pt declines investigation, avoid NSAID's/anticoagulation (2) GIB (gastrointestinal bleeding) Code(s): K92.2 - GASTROINTESTINAL HEMORRHAGE, UNSPECIFIED Status: Acute Plan: Suspected, PPI, see #1 (3) SACHI (acute kidney injury) Code(s): N17.9 - ACUTE KIDNEY FAILURE, UNSPECIFIED Status: Acute Plan: Improved, continue low-volume IVF's, avoid nephrotoxic meds and limit contrast (4) UTI (urinary tract infection) Status: Acute Plan: Suspected, start Rocephin 2gm IV daily, IVF's (5) Weakness generalized Code(s): R53.1 - WEAKNESS Status: Chronic (6) Aortic stenosis, severe Code(s): I35.0 - NONRHEUMATIC AORTIC (VALVE) STENOSIS Status: Chronic (7) Atrial fibrillation Code(s): I48.91 - UNSPECIFIED ATRIAL FIBRILLATION Status: Chronic Qualifiers: Atrial fibrillation type: paroxysmal Plan: Rate-improved, continue Amiodarone - Plan continue antibiotics, PT/OT, social research assistant, respiratory therapy, DVT proph w/ SCDs Consults: Palliative Care Stable currently continue PPI Advance to clear liquids Palliative care consult Appreciate GI assistance H/H now AM lab: BMP, H/H
[2019-07-05] MEDS: cefTRIAXone\\ROCEPHIN 2 GM in Sodium Chloride 0.9% 100 ML IVPB SCH (19:53)
[2019-07-06 04:11] LABS: ALT (SGPT) 78 U/L (8-55); AST (SGOT) 65 U/L (5-34); Albumin 2.5 g/dL (3.4-4.8); Alkaline Phosphatase 131 U/L (40-110); Anion Gap 16 mmol/L (10-20); BUN (Urea Nitrogen) 40 mg/dL (9.8-20.1); Bilirubin, Total 0.4 mg/dL (0.2-1.2); Calc. Creatinine Clearance 28 mL/min (70-130); Calcium 7.7 mg/dL (7.8-10.44); Carbon Dioxide 17 mmol/L (23-31); Chloride 104 mmol/L (98-107); Estimated GFR-MDRD 25; Globulin 3.6 g/dL (2.4-3.5); Glucose 149 mg/dL (83-110); Potassium 4.2 mmol/L (3.5-5.1); Protein, Total 6.1 g/dL (6.0-8.3); Sodium 133 mmol/L (136-145)
[2019-07-06 05:00] LABS: #Eosinphils 0.1 thou/uL (0.0-0.7); #Monocytes 1.1 thou/uL (0.11-0.59); #Neutrophils 13.3 thou/uL (1.40-6.50); %Basophils 0.2 % (0.0-1.0); %Eosinophils 0.8 % (0.0-10.0); %Lymphocytes 11.9 % (21.0-51.0); %Monocytes 6.4 % (0.0-10.0); %Neutrophils 80.7 % (42.0-75.0); Anisocytosis SLIGHT = 6-15 cells (100X) (0-5/hpf); Hemoglobin 9.4 g/dL (12.0-16.0); MDiff Complete? YES; Mean Corpuscular Hemoglobin 26.6 pg (27.0-31.0); Mean Corpuscular Volume 80.4 fL (78.0-98.0); Mean Platelet Volume 8.4 fL (7.4-10.4); Platelet Count 238 thou/uL (130-400); RBC Distribution Width 18.6 % (11.5-14.5); Red Blood Cell (RBC) Count 3.54 mill/uL (4.20-5.40); White Blood Cell (WBC) Count 16.5 thou/uL (4.8-10.8)
[2019-07-06] MEDS: Levothyroxine Sodium 125 MCG TAB PO SCH (06:23)
[2019-07-06] MEDS: Pantoprazole 40 MG VIAL IVP SCH ×2 (08:06→21:48)
[2019-07-06] MEDS: Amiodarone 450 MG, Admixture Fee 1 EACH in Dextrose 5% in Water 250 ML IVPB SCH (08:54)
--- NOTE | 2019-07-06 11:32 | PQF ---
CLINICAL DOCUMENTATION IMPROVEMENT CLARIFICATION FORM: ICD-10 Updated PLEASE DO AN ADDENDUM TO THE PROGRESS NOTE WITH ANY DOCUMENTATION UPDATES OR ADDITIONS AND CARRY THROUGH TO DC SUMMARY. THANK YOU. DATE: 07/06/19 ATTN: DR. MANN Please exercise your independent, professional judgment in responding to the clarification form. Clinical indicators are provided on the bottom of this form for your review Please check appropriate box(es): [ ] Sepsis present on admission [ x ] Sepsis NOT present on admission [ ] Unable to determine Due to: Due to: [ ] Device (please specify) [ ] Implant [ ] Graft [ ] Infusion [ ] SIRS due to non-infectious process (please specify etiology) [ ] with organ dysfunction [ ] without organ dysfunction [ ] Severe sepsis present on admission [ ] Severe Sepsis NOT present on admission [ ] Unable to determine with acute organ dysfunction of: ____ [ ] Septic Shock present on Admission [ ] Septic Shock NOT present on Admission [ ] Unable to determine [ ] Localized infection without sepsis [ ] Other diagnosis [ ] Unable to determine For continuity of documentation, please document condition throughout progress notes and discharge summary. Thank You. CLINICAL INDICATORS - SIGNS / SYMPTOMS / LABS / RESULTS AND LOCATION IN MR ER NOTE: "APPEARS TO HAVE SEPSIS" RR 36 WBC 07/03: 23.7 RISKS: UTI (PROGRESS NOTE 07/04) TREATMENT: IV CEFEPIME (ER) IV VANCOMYCIN (ER) IV FLUIDS (ER) BLOOD TRANSFUSIONS IV ROCEPHIN (07/04-PRESENT) BLOOD CULTURES 07/03 SAP Remedy Developer Crystal Reports Winform Viewer (This form is maintained as a part of the permanent medical record) 2014 [employer], [employer]. All Rights Reserved [email or web address] [facility]ENTER[facility]al
[2019-07-06] MEDS ORDERED: Clopidogrel Bisulfate 75 MG TAB PO SCH (12:00)
--- NOTE | 2019-07-06 15:31 | PRG ---
DATE OF SERVICE: 07/06/2019 SUBJECTIVE: Natalia Rivas continues to improve. OBJECTIVE: VITAL SIGNS: She is afebrile. Heart rates in the 90s, blood pressure 117/93, respiratory rate . she gets tachypneic, oximetry is 99%. LUNGS: Unchanged. HEART: Unchanged. ABDOMEN: Unchanged. EXTREMITIES: She has edema. positive 6 out of 7. LABORATORY STUDIES: Hemoglobin is 9.4. Sodium 133, potassium 4.2, chloride 104, bicarb 17, , creatinine down from a creatinine of . IMPRESSION: 1. failure associated with severe metabolic acidosis secondary to severe anemia combined with aortic stenosis. 2. Critical aortic stenosis. 3. Chronic kidney disease . 4. Mildly elevated liver enzymes, most likely secondary to congestion chronic illness. 5. .. 6. Do not resuscitate status. Since she does have history of multiple coronary stents (seven), it might be appropriate to place her back on a baby dose of aspirin and add some anti-platelet agent for her coronaries. She has shown that she failed a combination of aspirin and Plavix and ended up with severe anemia, but baby aspirin may be okay. I would defer this to Cardiology. We will continue to follow. She is stable to move out of Critical Care Unit in my opinion. Job ID: [id number]
--- NOTE | 2019-07-06 16:46 | PDOC.HOSPP ---
- Subjective Encounter Date: 07/06/19 Encounter Time: 16:40 Subjective: f/u for GI bleed with severe symptomatic anemia s/p 3u PRBC's with Hgb increasing from 4 to 8.5 now 9.4. No new events noted and nursing reports overall stable. - Objective Vital Signs & Weight: Vital Signs (12 hours) Temp Pulse Resp BP Pulse Ox 07/06/19 16:00 97.3 F L 99 16 107/58 L 99 07/06/19 12:00 97.6 F 99 16 129/60 99 07/06/19 08:00 100 07/06/19 07:00 97.8 F Weight Admit Weight 182 lb Weight 178 lb 2.136 oz Most Recent Monitor Data Heart Rate from ECG 100 NIBP 120/78 NIBP BP-Mean 92 Respiration from ECG 13 SpO2 99 I&O: 07/05/19 07/06/19 07/07/19 06:59 06:59 06:59 Intake Total 2790 1210 384 Output Total 224 603 125 Balance 2566 607 259 Result Diagrams: 07/06/19 03:25 07/06/19 03:25 Additional Labs: Accuchecks 07/06/19 07/05/19 07/05/19 09:09 23:01 16:41 POC Glucose 241 H 133 H 139 H Microbiology 07/04/19 12:49 Venous blood - Neck Blood Culture - Preliminary Specimen has been received and culture in progress. No Growth to date. 07/04/19 12:21 Central Line - Left external jugular vein Blood Culture - Preliminary Specimen has been received and culture in progress. No Growth to date. Laboratory Tests 06/08/15 06/08/15 07/04/19 05:31 05:31 10:41 Hgb MCV Plt Count Creatinine 2.23 H AST 25 ALT 24 Alkaline Phosphatase 149 H Triglycerides 250 H Cholesterol 187 LDL Cholesterol, Calc 93 HDL Cholesterol 44 Heart Disease Risk Ratio 4.3 Lipase 33 TSH 3rd Generation 5.3639 H 07/04/19 07/04/19 07/05/19 10:41 22:50 03:40 Hgb 4.6 L* 8.4 L MCV 75.2 L Plt Count 595 H Creatinine AST 91 H ALT 78 H Alkaline Phosphatase 133 H Triglycerides Cholesterol LDL Cholesterol, Calc HDL Cholesterol Heart Disease Risk Ratio Lipase TSH 3rd Generation EKG Reviewed by me: Yes (Tele - A-fib in 70's) Hospitalist ROS - Medication Medications: Active Medications Generic Name Dose Route Start Last Admin Trade Name Freq PRN Reason Stop Dose Admin Ceftriaxone Sodium 2 gm/ 100 mls @ 200 mls/hr 07/05/19 18:30 07/05/19 19:53 Sodium Chloride IVPB 100 mls 1830 DEVAN Administration Insulin Human Regular 0 units 07/04/19 17:43 07/04/19 18:19 Humulin R SC 13 unit .AGGRESSIVE SLIDING PRN Administration AGGRESSIVE SLIDING SCALE Protocol Levothyroxine Sodium 125 mcg 07/06/19 06:00 07/06/19 06:23 Synthroid PO 125 mcg 0600 DEVAN Administration Pantoprazole Sodium 40 mg 07/04/19 21:00 07/06/19 08:06 Protonix IVP 40 mg Q12HR DEVAN Administration - Exam General Appearance: ill appearing General - other findings: somnolent, opens eyes briefly to name Eye: PERRL, anicteric sclera ENT: normocephalic atraumatic, no oropharyngeal lesions Neck: supple, symmetric, no JVD, no thyromegaly Heart: no gallops, no rubs, normal peripheral pulses, irregular Heart - other findings: S1, S2 Respiratory: CTAB, no wheezes, no rales, no ronchi, normal chest expansion Gastrointestinal: soft, non-distended, normal bowel sounds, no palpable masses Gastrointestinal - other findings: mild TTP in mid-epigastric region Extremities: no cyanosis, no clubbing, no edema Skin: normal turgor, no lesions Neurological: cranial nerve grossly intact, no new deficit Musculoskeletal: generalized weakness Psychiatric: oriented to person, somnolent, lethargic Hosp A/P (1) Symptomatic anemia Code(s): D64.9 - ANEMIA, UNSPECIFIED Status: Acute Plan: s/p 3u PRBC's, likely GI blood loss, conservative mgmt, PPI (2) GIB (gastrointestinal bleeding) Code(s): K92.2 - GASTROINTESTINAL HEMORRHAGE, UNSPECIFIED Status: Acute Plan: See #1 above, PPI, serial H/H (3) SACHI (acute kidney injury) Code(s): N17.9 - ACUTE KIDNEY FAILURE, UNSPECIFIED Status: Acute Plan: Improved, avoid nephrotoxic meds and limit contrast exposure (4) UTI (urinary tract infection) Status: Acute Plan: Suspected, continue Rocephin IV, IVF's (5) Weakness generalized Code(s): R53.1 - WEAKNESS Status: Chronic Plan: PT/OT for functional assessment (6) Aortic stenosis, severe Code(s): I35.0 - NONRHEUMATIC AORTIC (VALVE) STENOSIS Status: Chronic (7) Atrial fibrillation Code(s): I48.91 - UNSPECIFIED ATRIAL FIBRILLATION Status: Chronic Qualifiers: Atrial fibrillation type: unspecified chronic Qualified Code(s): I48.20 - Chronic atrial fibrillation, unspecified; I48.2 - Chronic atrial fibrillation Plan: Rate-controlled, Amiodarone d/c'd, Plavix daily - Plan continue antibiotics, PT/OT, social work supervisor, speech therapy, respiratory therapy, DVT proph w/SCDs Consults: Palliative Care Stable currently continue PPI Advance to Regular diet Palliative care consult Appreciate GI assistance AM lab: CMP, CBC
[2019-07-06] MEDS: Insulin Regular 300 UNITS/3 ML VIAL SC PRN (17:40)
[2019-07-06] MEDS: cefTRIAXone\\ROCEPHIN 2 GM in Sodium Chloride 0.9% 100 ML IVPB SCH (17:44)
[2019-07-06] MEDS ORDERED: Amiodarone 200 MG TAB PO SCH (21:00)
[2019-07-06] MEDS: Amiodarone 200 MG TAB PO SCH (21:48)
[2019-07-07 05:08] LABS: ALT (SGPT) 80 U/L (8-55); AST (SGOT) 52 U/L (5-34); Albumin 2.4 g/dL (3.4-4.8); Alkaline Phosphatase 130 U/L (40-110); Anion Gap 16 mmol/L (10-20); BUN (Urea Nitrogen) 36 mg/dL (9.8-20.1); Bilirubin, Total 0.4 mg/dL (0.2-1.2); Calc. Creatinine Clearance 31 mL/min (70-130); Carbon Dioxide 16 mmol/L (23-31); Chloride 103 mmol/L (98-107); Estimated GFR-MDRD 29; Globulin 3.5 g/dL (2.4-3.5); Glucose 114 mg/dL (83-110); Potassium 3.6 mmol/L (3.5-5.1); Protein, Total 5.9 g/dL (6.0-8.3); Sodium 131 mmol/L (136-145)
[2019-07-07 05:26] LABS: Anisocytosis SLIGHT = 6-15 cells (100X) (0-5/hpf); Band 1 % (5-11); Hemoglobin 9.1 g/dL (12.0-16.0); Hypochromia SLIGHT = 6-15 cells (100X) (0-5/hpf); Lymphocytes 13 % (21-51); MDiff Complete? YES; Mean Corpuscular HGB CONC 31.3 g/dL (32.0-36.0); Mean Corpuscular Hemoglobin 25.8 pg (27.0-31.0); Mean Corpuscular Volume 82.5 fL (78.0-98.0); Mean Platelet Volume 8.6 fL (7.4-10.4); Monocytes 4 % (0-10); Neutrophil 82 % (42-75); Nucleated RBC 1 % (0); Platelet Count 323 thou/uL (130-400); Polychromasia SLIGHT = 2-3 cells (100X) (0-2/hpf); RBC Distribution Width 19.6 % (11.5-14.5); Red Blood Cell (RBC) Count 3.52 mill/uL (4.20-5.40); White Blood Cell (WBC) Count 16.1 thou/uL (4.8-10.8)
[2019-07-07] MEDS: Levothyroxine Sodium 125 MCG TAB PO SCH (05:32)
[2019-07-07] MEDS ORDERED: Clopidogrel Bisulfate 75 MG TAB PO SCH (09:00)
[2019-07-07] MEDS: Pantoprazole 40 MG VIAL IVP SCH (09:06)
[2019-07-07] MEDS: Amiodarone 200 MG TAB PO SCH (09:06)
[2019-07-07] MEDS: Insulin Regular 300 UNITS/3 ML VIAL SC PRN ×2 (10:40→17:13)
--- NOTE | 2019-07-07 11:22 | DIS ---
DATE OF ADMISSION: 07/04/2019 DATE OF DISCHARGE: 07/07/2019 DISCHARGE DIAGNOSES: 1. Symptomatic anemia secondary to #2. 2. Gastrointestinal bleeding, status post 3 units of packed red blood cells, conservative management. 3. Acute kidney injury, improved. 4. Urinary tract infection, suspected organism not identified. 5. Generalized weakness. 6. Severe aortic stenosis, chronic. 7. Chronic atrial fibrillation with variable rate control. CONSULTATIONS: 1. Dr. Colin with Pulmonology Service. 2. Dr. Grant and Dr. Valerio with GI Service. 3. Dr. Hunt with Cardiology Service. PERTINENT LABORATORY AND X-RAY FINDINGS: Sodium ranged between 131 to 135, creatinine ranged between 1.67 to 2.23, estimated GFR ranged between 21 to 29, AST ranged between 25 to 91, ALT ranged between 24 to 80, alkaline phosphatase ranged between 130 to 149. CBC showed a white blood cell count ranging between 16.1 to 23.7, hemoglobin ranged between 4.6 to 9.4, platelet count ranged between 238 to 595. Blood cultures x2 dated 07/04/2019, showed no growth at [address] of the abdomen and pelvis dated 07/04/2019, showed moderate amount of retained fecal material in the rectum. Colonic diverticulosis. Cholelithiasis and/or gallbladder sludge. Portable chest x-ray dated 07/04/2019, showed atelectasis in the mid lung zones bilaterally. HOSPITAL COURSE: The patient was initially admitted after presenting with general fatigue, weakness, and anemia. The patient underwent extensive evaluation after initial hemoglobin was noted at 4.6. The patient was treated for suspected GI bleed and received 3 units of packed red blood cells in addition to IV Protonix. The patient was also initiated on broad-spectrum empiric IV antibiotics with cefepime and Levaquin due to leukocytosis. The patient was evaluated by the GI Service due to severe anemia. However, due to the patient's comorbid status and tenuous medical presentation, the patient was managed conservatively with serial H and H monitoring in addition to 3 units of packed red blood cells and a proton pump inhibitor. The patient's hemoglobin did stabilize with conservative management with initial hemoglobin of 4.6, increasing to 9.1 with conservative management. No specific endoscopy was recommended as the patient with multiple comorbid status and high risk for the procedure. The patient was also noted with atrial fibrillation with rapid ventricular response, initiated on amiodarone IV initially and then transitioning to oral amiodarone with variable rate control. Due to the patient's comorbid conditions, Palliative Care Service was consulted with recommendations to proceed to hospice care. The family and the patient decided to pursue hospice care at home after discharge. I have examined the patient at the time of discharge and discussed followup instructions. The patient verbalizes understanding and in agreement, ready for discharge on 07/07/2019. DISCHARGE MEDICATIONS: 1. Amiodarone 200 mg p.o. daily. 2. Enteric-coated aspirin 81 mg p.o. daily. 3. Omnicef 300 mg p.o. daily x5 days. 4. Lasix 20 mg p.o. daily. 5. Levothyroxine 125 mcg p.o. daily. 6. Protonix 40 mg p.o. b.i.d. FOLLOWUP: The patient will follow up with Dr. Ester Lara. CONDITION ON DISCHARGE: Guarded. ACTIVITY: Bedbound status at baseline. DIET: Regular. CODE STATUS: Do not attempt resuscitation. DISPOSITION: Home with [facility], 07/07/2019. TIME SPENT: Total time preparing and coordinating discharge, 34 minutes. Job ID: [id number]
--- NOTE | 2019-07-07 12:37 | PRG ---
DATE OF SERVICE: 07/07/2019 SUBJECTIVE: Vital signs remained stable. OBJECTIVE: VITAL SIGNS: She is afebrile. Heart rate is 101, respiratory rate is 20, oximetry is 95% on 2 L, and blood pressure 143/61. Intake and output +519. LABORATORY STUDIES: Hemoglobin is stable at 9.1. Electrolytes are unremarkable. Creatinine is 1.67 down from a high of 2.23 on admission. IMPRESSION: 1. Blood loss anemia. 2. Metabolic acidosis secondary to blood loss anemia combined with severe aortic stenosis. 3. Critical aortic stenosis. 4. Deconditioning. 5. Acute on chronic kidney disease. 6. Elevated liver enzymes, most likely secondary to hepatic congestion. PLAN: Increase her activity. Consider discharge planning. Obviously, she will possibly need to be started back on a baby aspirin a day given her multiple stents. She probably needs to have weekly hemoglobin checks. She has been started back on Plavix. I would anticipate that she will continue to have bleeding problems. We will sign off. Job ID: [id number]
[2019-07-07 17:26] VITALS: BP 124/67; TEMP 97.5
== END 2019-07-07 18:23 | disposition hospice, home (50) | DRG 377 ==
LOC: ERS 09:44 → CCU 13:53 → 2NO 07-06 11:07
PROVIDERS: ADMIT Internal Medicine; ATTEND Internal Medicine
PROC: 30233N1 Transfusion of Nonautologous Red Blood Cells into Peripheral Vein, Percutaneous Approach (ICD-10-PCS; principal; 2019-07-04)
DX: K92.2 Gastrointestinal hemorrhage, unspecified (principal); A41.9 Sepsis, unspecified organism; I48.20 Chronic atrial fibrillation, unspecified; J98.11 Atelectasis; N17.9 Acute kidney failure, unspecified; Z66 Do not resuscitate; Z51.5 Encounter for palliative care; N39.0 Urinary tract infection, site not specified; E87.2 Acidosis; E03.9 Hypothyroidism, unspecified; R53.1 Weakness; E86.9 Volume depletion, unspecified; I25.10 Atherosclerotic heart disease of native coronary artery without angina pectoris; I35.0 Nonrheumatic aortic (valve) stenosis; D47.3 Essential (hemorrhagic) thrombocythemia; E78.5 Hyperlipidemia, unspecified; E11.22 Type 2 diabetes mellitus with diabetic chronic kidney disease; N18.9 Chronic kidney disease, unspecified; D50.0 Iron deficiency anemia secondary to blood loss (chronic); K76.1 Chronic passive congestion of liver; Z88.5 Allergy status to narcotic agent; Z90.710 Acquired absence of both cervix and uterus; Z86.718 Personal history of other venous thrombosis and embolism; Z86.73 Personal history of transient ischemic attack (TIA), and cerebral infarction without residual deficits; Z88.6 Allergy status to analgesic agent; Z88.8 Allergy status to other drugs, medicaments and biological substances; Z79.82 Long term (current) use of aspirin; Z79.02 Long term (current) use of antithrombotics/antiplatelets; Z95.5 Presence of coronary angioplasty implant and graft
CPT/HCPCS: 36415; 36416; 36430; 71045; 74176; 80053; 80069; 81003; 81015; 82550; 82553; 82805; 83690; 84484; 85007; 85014; 85018; 85025; 85027; 85060; 86850; 86900; 86901; 87040; 93005; A4353; C1769; C9113; J0282; J0692; J0696; J1815; J1956; J2405; J3010; J3490; J7070; P9016

== ENCOUNTER 2019-08-10 17:10 | Emergency (ER) | payer MEDICARE ==
[2019-08-10 18:05] LABS: #Eosinphils 0.2 thou/uL (0.0-0.7); #Lymphocytes 2.3 thou/uL (1.20-3.40); #Monocytes 0.9 thou/uL (0.11-0.59); #Neutrophils 7.2 thou/uL (1.40-6.50); %Basophils 0.3 % (0.0-1.0); %Eosinophils 1.6 % (0.0-10.0); %Lymphocytes 21.4 % (21.0-51.0); %Monocytes 8.7 % (0.0-10.0); %Neutrophils 67.9 % (42.0-75.0); Hemoglobin 7.2 g/dL (12.0-16.0); Mean Corpuscular HGB CONC 29.5 g/dL (32.0-36.0); Mean Corpuscular Hemoglobin 21.5 pg (27.0-31.0); Mean Corpuscular Volume 72.9 fL (78.0-98.0); Mean Platelet Volume 9.5 fL (7.4-10.4); Platelet Count 480 thou/uL (130-400); RBC Distribution Width 21.2 % (11.5-14.5); Red Blood Cell (RBC) Count 3.34 mill/uL (4.20-5.40); White Blood Cell (WBC) Count 10.6 thou/uL (4.8-10.8)
[2019-08-10 18:22] LABS: Bilirubin Negative (Negative); Blood, Urine Negative (Negative); Clarity Clear (Clear); Glucose, Urine (Dipstick) Normal (Negative); Leukocyte Negative Leu/uL (Negative); Nitrite Negative (Negative); Protein, Urine (Dipstick) Negative (Neg-Trace); Urobilinogen Normal mg/dL (Less than 2)
[2019-08-10 18:23] LABS: ALT (SGPT) 16 U/L (8-55); AST (SGOT) 21 U/L (5-34); Alkaline Phosphatase 156 U/L (40-110); Anion Gap 18 mmol/L (10-20); BUN (Urea Nitrogen) 55 mg/dL (9.8-20.1); Bilirubin, Total 0.5 mg/dL (0.2-1.2); Calc. Creatinine Clearance 0 mL/min (70-130); Calcium 9.1 mg/dL (7.8-10.44); Carbon Dioxide 16 mmol/L (23-31); Chloride 104 mmol/L (98-107); Estimated GFR-MDRD 25; Globulin 4.5 g/dL (2.4-3.5); Glucose 277 mg/dL (83-110); Iron Less than 8 ug/dL (50-170); Iron Binding Capacity, Total 309 mcg/dL (265-497); Potassium 4.9 mmol/L (3.5-5.1); Protein, Total 7.5 g/dL (6.0-8.3); Sodium 133 mmol/L (136-145)
[2019-08-10 18:24] LABS: Anisocytosis SLIGHT = 6-15 cells (100X) (0-5/hpf); Hypochromia SLIGHT = 6-15 cells (100X) (0-5/hpf); MDiff Complete? YES; Microcytosis SLIGHT = 6-15 cells (100X) (0-5/hpf); Platelet Morphology Comment Appears Increased; Polychromasia MODERATE = 3-4 cells (100X) (0-2/hpf)
== END 2019-08-10 20:27 | disposition home or self-care (01) ==
LOC: ERS 17:10
DX: D50.9 Iron deficiency anemia, unspecified (principal); I25.10 Atherosclerotic heart disease of native coronary artery without angina pectoris; I25.2 Old myocardial infarction; E11.9 Type 2 diabetes mellitus without complications; E03.9 Hypothyroidism, unspecified; E78.5 Hyperlipidemia, unspecified; E78.00 Pure hypercholesterolemia, unspecified; I48.91 Unspecified atrial fibrillation; Z86.73 Personal history of transient ischemic attack (TIA), and cerebral infarction without residual deficits; Z79.82 Long term (current) use of aspirin; Z79.899 Other long term (current) drug therapy
CPT/HCPCS: 51701; 80053; 81003; 82728; 83540; 83550; 85025; 86850; 86900; 86901; 93005; 94760; A4353

== ENCOUNTER 2019-08-31 10:51 | Inpatient (IN) | payer MEDICARE, OTHER ==
[~2019-08-31 10:51] MED LIST: EPINEPHrine 1 MG/10 ML Abboject SYRINGE ONE; Sodium Bicarb 50 MEQ/50 ML Abboject 8.4% SYRINGE ONE
[2019-08-31 11:42] LABS: Hemoglobin 6.7 g/dL (12.0-16.0); Mean Corpuscular HGB CONC 29.2 g/dL (32.0-36.0); Mean Corpuscular Hemoglobin 19.2 pg (27.0-31.0); Mean Corpuscular Volume 65.8 fL (78.0-98.0); Mean Platelet Volume 6.1 fL (7.4-10.4); Platelet Count 244 thou/uL (130-400); RBC Distribution Width 22.1 % (11.5-14.5); Red Blood Cell (RBC) Count 3.46 mill/uL (4.20-5.40); White Blood Cell (WBC) Count 10.3 thou/uL (4.8-10.8)
[2019-08-31 12:04] LABS: ALT (SGPT) 49 U/L (8-55); AST (SGOT) 36 U/L (5-34); Albumin 2.8 g/dL (3.4-4.8); Alkaline Phosphatase 222 U/L (40-110); Anion Gap 26 mmol/L (10-20); BUN (Urea Nitrogen) 78 mg/dL (9.8-20.1); Bilirubin, Total 1.2 mg/dL (0.2-1.2); Calc. Creatinine Clearance 0 mL/min (70-130); Chloride 101 mmol/L (98-107); Estimated GFR-MDRD 21; Globulin 3.5 g/dL (2.4-3.5); Glucose 232 mg/dL (83-110); Potassium 4.8 mmol/L (3.5-5.1); Protein, Total 6.3 g/dL (6.0-8.3); Sodium 130 mmol/L (136-145)
[2019-08-31 12:07] LABS: Anisocytosis MODERATE=16-30 cells (100X) (0-5/hpf); Band 4 % (5-11); Burr Cells SLIGHT = 2-5 cells (100X) (0-1/hpf); Hypochromia MODERATE=16-30 cells (100X) (0-5/hpf); Lymphocytes 8 % (21-51); MDiff Complete? YES; Microcytosis MODERATE=15-30 cells (100X) (0-5/hpf); Monocytes 2 % (0-10); Neutrophil 85 % (42-75); Nucleated RBC 14 % (0); Platelet Morphology Comment Appears Adequate; Poikilocytosis MODERATE=16-30 cells (100X) (0-5/hpf); Polychromasia SLIGHT = 2-3 cells (100X) (0-2/hpf); Reflex for Review?? YES; Schistocytes MODERATE= 6-15 cells (100X) (0-1/hpf)
--- NOTE | 2019-08-31 12:11 | RAD ---
PORTABLE CHEST 1 VIEW: DATE: 08/31/2019. TIME: 11:18 AM. HISTORY: Generalized weakness. COMPARISON: 07/04/2019. FINDINGS: The heart size is borderline. The aorta is tortuous. No lobar consolidation, pneumothoraces, or ple ural effusions are seen. Mild linear scarring is again seen. IMPRESSION: No acute process. POS: [facility]
[2019-08-31 12:14] LABS: Carbon Dioxide 8 mmol/L (23-31)
[2019-08-31 12:14] LABS: Bacteria/HPF 4+ HPF (None Seen); Bilirubin Negative (Negative); Blood, Urine Negative (Negative); Clarity Turbid (Clear); Glucose, Urine (Dipstick) Normal (Negative); Leukocyte 25 Leu/uL (Negative); Nitrite Negative (Negative); Protein, Urine (Dipstick) Negative (Neg-Trace); RBC/HPF 0-3 HPF (0-3); Squamous Epithelial 0-3 HPF (0-3); Urobilinogen Normal mg/dL (Less than 2); WBC/HPF 0-3 HPF (0-3)
[2019-08-31] MEDS ORDERED: Norepinephrine 8 MG/0.9% NS 250 ML ONE (14:39)
[2019-08-31] MEDS ORDERED: HUMULIN R 100 UNITS in Sodium Chloride 0.9% 100 ML IVPB SCH ×2 (14:45→16:00)
[2019-08-31] MEDS ORDERED: Dextrose 50% Abboject 50 ML SYRINGE ONE (14:51)
[2019-08-31] MEDS ORDERED: Ketamine 50 MG/ML (10ML VIAL) ONE (14:58)
[2019-08-31] MEDS ORDERED: Rocuronium Bromide 10 MG/ML (10ML VIAL) ONE (14:58)
[2019-08-31] MEDS ORDERED: Sodium Bicarbonate 150 MEQ in Dextrose 5 %-0.45 % NaCl 1,000 ML IV SCH (15:15)
[2019-08-31 15:36] LABS: Actual Bicarbonate (HCO3a) 5.2 mEq/L (22-28); Analyzer IN Cardio ER; Base Excess (BEa) -23.5 mEq/L (-2.0 to +3.0); Calcium, Ionized 1.12 mmol/L (1.12-1.30); Carboxyhemoglobin (COHb) 0.5 gm% (0.0-3.0); Hemoglobin (Hb) 8.7 g/dL (12.0-16.0); O2 Tension (PaO2), arterial 306.2 mmHg (> 60.0); Potassium - ABG Lab 4.79 mmol/L (3.70-5.30)
[2019-08-31 15:37] LABS: CO2 Tension 19.5 mmHg (35.0-45.0); Puncture Site RBRACH; pH, Arterial 7.05 (7.35-7.45)
[2019-08-31 15:38] LABS: ALV-art Gradient 168.525 (0-20)
[2019-08-31] MEDS ORDERED: SYSTANE 3.5 GM TUBE EA EYE PRN (15:48)
[2019-08-31 15:55] LABS: Lactic Acid 13.9 mmol/L (0.5-2.2)
--- NOTE | 2019-08-31 15:58 | RAD ---
RADIOGRAPH CHEST 1 VIEW: Supine DATE: 08/31/2019 3:14 PM HISTORY: 89-year-old female status post intubation and central line placement. COMPARISON: 08/31/2019 11:18 AM FINDINGS: New endotracheal tube with distal tip 1.3 cm superior to lopez. New esophageal catheter with distal tip at left upper quadrant, sidehole probably at gastric cardia. Prominence of right inferior hilum and surrounding mild pulmonary parenchymal haziness, nonspecific. There is otherwise no consolidation or pulmonary edema. The lateral costophrenic angles are sharp. Supine positioning makes this study insensitive for the detection of pneumothorax. No cardiomegaly. Right lateral basilar defibrillation paddle. New left central vascular catheter descending from left neck, with distal tip overlying right hilum. IMPRESSION: 1. Status post intubation with endotracheal tube slightly superior to lopez directed at right mainst em bronchus. Consider retraction by approximately 1.5 to 2 cm. 2. Left sided central vascular catheter placement. 3. Recommend upright view to evaluate for pneumothorax.
[2019-08-31] MEDS ORDERED: Ventilator Sedation Protocol 1 EACH FS SCH (16:00)
[2019-08-31] MEDS ORDERED: Meropenem 1 GM in Sodium Chloride 0.9% 100 ML IVPB SCH (16:00)
[2019-08-31 16:15] LABS: INR-International Normal Ratio 1.8; PTT 28.6 sec (22.9-36.1); Prothrombin Time 20.7 sec (12.0-14.7)
[2019-08-31] MEDS ORDERED: Acetaminophen 325 MG TAB PO PRN (16:16)
[2019-08-31] MEDS ORDERED: Acetaminophen 650 MG Suppository PR PRN (16:16)
[2019-08-31] MEDS ORDERED: Calcium Carbonate 500 MG ChewTAB PO PRN (16:16)
[2019-08-31 17:12] LABS: Magnesium 2.8 mg/dL (1.6-2.6); Phosphorus 8.3 mg/dL (2.3-4.7)
[2019-08-31] MEDS ORDERED: Dextrose 5% in Water 1,000 ML IV PRN (17:17)
[2019-08-31] MEDS ORDERED: Insulin Regular 300 UNITS/3 ML VIAL SC PRN ×2 (17:17)
[2019-08-31] MEDS ORDERED: Dextrose 50% Abboject 50 ML SYRINGE SLOW IVP PRN (17:17)
[2019-08-31 17:36] LABS: Actual Bicarbonate (HCO3a) 4.9 mEq/L (22-28); Base Excess (BEa) -22.7 mEq/L (-2.0 to +3.0); Calcium, Ionized 1.12 mmol/L (1.12-1.30); Carboxyhemoglobin (COHb) 1.3 gm% (0.0-3.0); Potassium - ABG Lab 4.27 mmol/L (3.70-5.30)
[2019-08-31 17:38] LABS: CO2 Tension 16.1 mmHg (35.0-45.0); pH, Arterial 7.11 (7.35-7.45)
[2019-08-31 17:39] LABS: ALV-art Gradient 77.075 (0-20)
[2019-08-31] MEDS ORDERED: Fentanyl BOLUS 250 ML IVPB PRN (17:43)
[2019-08-31] MEDS ORDERED: DISCONTINUE PREVIOUS NARCOTIC PAIN MEDICATIONS AND BENZODIAZEPINES FS SCH (17:43)
[2019-08-31] MEDS ORDERED: Propofol BOLUS 1,000 MG/100 ML VIAL IV PRN (17:43)
[2019-08-31] MEDS ORDERED: fentaNYL Citrate/PF 2,000 MCG in Sodium Chloride 0.9% 60 ML IV SCH (17:43)
[2019-08-31] MEDS ORDERED: Propofol 1,000 MG/100 ML VIAL IV PRN (17:43)
[2019-08-31] MEDS ORDERED: Lorazepam 2 MG/ML VIAL SLOW IVP PRN (17:43)
[2019-08-31] MEDS ORDERED: Morphine 2 MG/ML SYRINGE SLOW IVP PRN (17:43)
[2019-08-31 17:45] VITALS: BMI 25.0
[2019-08-31] MEDS: Sodium Bicarbonate 150 MEQ in Dextrose 5% in Water 1,000 ML IV SCH (18:28)
[2019-08-31] MEDS ORDERED: MEROPENEM 1 GM/50 ML 1 GM in Premix Bag 1 BAG IVPB SCH ×2 (18:30→20:00)
--- NOTE | 2019-08-31 18:32 | HP ---
PRIMARY CARE: Dr. Tovar. CHIEF COMPLAINT: Generalized weakness with shortness of breath. HISTORY OF PRESENT ILLNESS: Patient is an 89-year-old female, with coronary artery disease, chronic anemia, and critical aortic stenosis, was brought into the emergency room with the above complaints. History obtained from the daughter at the bedside. Over the last 1 week, patient has generalized weakness and not feeling well. She has poor appetite. She also had intermittent nausea that got worse over the last 24 hours. Today, she was found to have shortness of breath as well. For this reason, EMS was called. There was no chest pain, shortness of breath, focal neurologic deficit, abdominal pain, diarrhea, hematochezia, or melena reported. In the emergency room, patient was found to have hypotension with a blood pressure of 67/52 with a temperature of 96.3 rectally, respirations of 36 with pulse rate of 79, and O2 saturation 98% on room air. She was started on pressors after a central line placement. She also became bradycardic and required brief CPR in the emergency room. She was subsequently intubated and placed on mechanical ventilation. Her EKG in the emergency room showed left bundle-branch block. Her hemoglobin was 6.7, for which she received 1 unit of PRBC. Her Initial ABG showed pH of 7.05 with bicarbonate of 5.2, pCO2 of 19.5 on mechanical ventilation. Lactic acid was 8.4. PAST MEDICAL HISTORY: 1. Critical aortic stenosis. 2. Coronary artery disease, status post seven stents. 3. Chronic anemia requiring blood transfusions in the past. Most recent blood transfusion was a month ago. 4. CKD. 5. Chronic atrial fibrillation, not anticoagulation candidate. 6. History of DVT, status post IVC filter. 7. 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 8. Hypothyroidism. 9. Diabetes mellitus, type 2, diet controlled. PAST SURGICAL HISTORY: 1. Several cardiac stents. 2. Cataract surgery. 3. EGD. 4. Hysterectomy. ALLERGIES: PATIENT IS ALLERGIC TO CODEINE, MORPHINE, PREDNISONE, AND STATINS. CURRENT HOME MEDICATION: 1. Amiodarone 200 mg daily. 2. Aspirin 81 mg daily. 3. Levothyroxine 125 mcg daily. 4. Protonix 40 mg daily. SOCIAL HISTORY: Patient is bedridden. She currently lives at home with her family. She has home health care. There is no smoking or drug use reported. The daughter is the surrogate decision maker. Her contact #[phone]. Her name is Lauren Rivas. FAMILY HISTORY: Cannot be obtained from the patient due to current cognitive status. REVIEW OF SYSTEMS: Cannot be obtained from the patient due to current cognitive status. PHYSICAL EXAMINATION: VITAL SIGNS: As discussed above. GENERAL: An 89-year-old female, ill-appearing on mechanical ventilation. Sedated. HEENT: Head, atraumatic and normocephalic. Sclerae anicteric. Pale mucous membranes. Endotracheal tube noted. NECK: Supple. No JVD. No carotid bruit. No lymphadenopathy in the neck. LUNGS: Showed scattered rhonchi with diminished air entry at bases. No accessory muscle use. No wheezing. HEART: S1, S2 present. Regular rate and rhythm. 4/6 systolic ejection murmur over the aortic area. No heaves or pulsation. ABDOMEN: Soft. There was no guarding or rigidity. Bowel sounds hypoactive. EXTREMITIES: No edema or calf tenderness. NEUROLOGY: Could not be assessed due to current mentation. PSYCHIATRY: Could not be assessed due to current mentation. SKIN: Warm and dry. LYMPH NODES: No palpable lymph nodes in the neck. LABORATORY FINDINGS: CBC showed WBC of 10.3 with hemoglobin 6.7, and platelet count of 244. INR 1.8. ABGs as discussed above. Sodium 130, potassium 4.8, chloride 101, bicarb 8, BUN of 78, creatinine 2.19, and baseline creatinine around 1.46. Lactic acid 8.4, repeat lactic acid 13.9. Urinalysis was negative for wbc. It showed 4+ bacteria. Beta-hydroxybutyrate was 1.3. Chest x-ray by my review was negative for infiltrate or edema. EKG by my review as discussed above. IMPRESSION: 1. Acute hypoxic respiratory failure. 2. Hypotensive shock requiring pressors. 3. Acute on chronic anemia, status post 1 unit of PRBC in the emergency room. 4. Severe metabolic acidosis secondary to lactic acidosis/starvation ketosis. 5. Hyponatremia. 6. Acute kidney injury on chronic kidney disease, stage 3. 7. Critical aortic stenosis. 8. Coronary artery disease, status post multiple stents in the past. 9. History of gastrointestinal bleeding in the past. 10. Paroxysmal atrial fibrillation, not an anticoagulation candidate. 11. History of deep vein thrombosis, status post IVC filter. 12. Diabetes mellitus, type 2, diet controlled. 13. Hypothyroidism. PLAN: Patient will be monitored in the intensive care unit. We will continue ventilatory support. Continue Levophed. We will start her on PPIs. Empiric vancomycin and meropenem will be started. Blood cultures have been sent. COVID will be ruled out. Exact etiology appears to be unclear. We will monitor H and H and transfuse accordingly. We will check reticulocyte count as well. A.m. labs. Case was discussed with Pulmonary Critical Care, Dr. Wong. The case was discussed extensively with the family. Job ID: [id number]
[2019-08-31] MEDS ORDERED: Vancomycin 1.5 GRAM/300 ML BAG 1.5 GM in Premix Bag 1 BAG IVPB SCH (18:45)
[2019-08-31 18:56] LABS: Hemoglobin 8.8 g/dL (12.0-16.0); Platelet Count 198 thou/uL (130-400)
[2019-08-31] MEDS: Pantoprazole 40 MG VIAL IVP SCH (19:11)
[2019-08-31] MEDS: Norepinephrine 8 MG/0.9% NS 250 ML IVPB PRN (19:43)
[2019-08-31] MEDS ORDERED: Sodium Bicarb 50 MEQ/50 ML Abboject 8.4% SYRINGE ONE (19:58)
[2019-08-31] MEDS ORDERED: Sodium Bicarb 50 MEQ/50 ML Abboject 8.4% SYRINGE IVP SCH ×2 (20:00→22:00)
[2019-09-01 00:41] VITALS: TEMP 98.4
[2019-09-01] MEDS: Sodium Bicarbonate 150 MEQ in Dextrose 5% in Water 1,000 ML IV SCH (00:57)
[2019-09-01] MEDS: Norepinephrine 8 MG/0.9% NS 250 ML IVPB PRN (00:57)
[2019-09-01] MEDS ORDERED: Phenylephrine 10 MG/NS 250 ML 250 ML IVPB PRN (01:38)
[2019-09-01] MEDS ORDERED: Phenylephrine 10 MG in Sodium Chloride 0.9% 250 ML 250 ML IVPB PRN (01:44)
[2019-09-01 01:45] LABS: Anisocytosis MODERATE=16-30 cells (100X) (0-5/hpf); Band 9 % (5-11); Burr Cells SLIGHT = 2-5 cells (100X) (0-1/hpf); Hemoglobin 7.7 g/dL (12.0-16.0); Hypochromia SLIGHT = 6-15 cells (100X) (0-5/hpf); Lymphocytes 1 % (21-51); MDiff Complete? YES; Mean Corpuscular HGB CONC 29.4 g/dL (32.0-36.0); Mean Corpuscular Hemoglobin 21.4 pg (27.0-31.0); Mean Corpuscular Volume 72.6 fL (78.0-98.0); Mean Platelet Volume 6.6 fL (7.4-10.4); Metamyelocyte 1 % (0-0); Microcytosis SLIGHT = 6-15 cells (100X) (0-5/hpf); Monocytes 4 % (0-10); Neutrophil 85 % (42-75); Nucleated RBC 28 % (0); Platelet Count 167 thou/uL (130-400); Polychromasia MODERATE = 3-4 cells (100X) (0-2/hpf); RBC Distribution Width 22.6 % (11.5-14.5); Red Blood Cell (RBC) Count 3.58 mill/uL (4.20-5.40); White Blood Cell (WBC) Count 18.6 thou/uL (4.8-10.8)
[2019-09-01] MEDS ORDERED: Sodium Chloride 0.9% 1,000 ML IV SCH (01:45)
[2019-09-01] MEDS ORDERED: Vasopressin 40 UNIT, Admixture Fee 1 EACH in Sodium Chloride 0.9% 100 ML IV PRN (01:45)
[2019-09-01 01:56] LABS: Phosphorus 7.3 mg/dL (2.3-4.7)
[2019-09-01 02:04] LABS: Calcium, Ionized 0.94 mmol/L (1.12-1.30); Carboxyhemoglobin (COHb) 1.6 gm% (0.0-3.0); Hemoglobin (Hb) 7.4 g/dL (12.0-16.0); O2 Tension (PaO2), arterial 164.8 mmHg (> 60.0); Potassium - ABG Lab 4.51 mmol/L (3.70-5.30)
[2019-09-01 02:07] LABS: pH, Arterial 7.14 (7.35-7.45)
[2019-09-01 02:08] LABS: ALV-art Gradient 101.775 (0-20); CO2 Tension 14.9 mmHg (35.0-45.0); Puncture Site LBA
[2019-09-01 02:12] LABS: ALT (SGPT) 609 U/L (8-55); AST (SGOT) 1881 U/L (5-34); Albumin 2.7 g/dL (3.4-4.8); Alkaline Phosphatase 184 U/L (40-110); Anion Gap 40 mmol/L (10-20); BUN (Urea Nitrogen) 78 mg/dL (9.8-20.1); Bilirubin, Total 2.1 mg/dL (0.2-1.2); Calc. Creatinine Clearance 20 mL/min (70-130); Calcium 7.4 mg/dL (7.8-10.44); Chloride 101 mmol/L (98-107); Estimated GFR-MDRD 20; Globulin 2.8 g/dL (2.4-3.5); Glucose 152 mg/dL (83-110); Magnesium 2.6 mg/dL (1.6-2.6); Potassium 4.7 mmol/L (3.5-5.1); Protein, Total 5.5 g/dL (6.0-8.3); Sodium 144 mmol/L (136-145)
[2019-09-01 02:17] LABS: Carbon Dioxide 8 mmol/L (23-31)
[2019-09-01 02:29] LABS: Lactic Acid 23.7 mmol/L (0.5-2.2)
[2019-09-01] MEDS ORDERED: Sodium Bicarb 50 MEQ/50 ML Abboject 8.4% SYRINGE IVP SCH (02:30)
[2019-09-01 02:37] LABS: CKMB 4.5 ng/mL (0-6.6)
[2019-09-01] MEDS ORDERED: Levothyroxine Sodium 125 MCG TAB PER TUBE SCH (06:00)
[2019-09-01] MEDS ORDERED: MEROPENEM 1 GM/50 ML 1 GM in Premix Bag 1 BAG IVPB SCH (06:00)
[2019-09-01] MEDS: Pantoprazole 40 MG VIAL IVP SCH (07:04)
--- NOTE | 2019-09-01 08:23 | CON ---
DATE OF CONSULTATION: HISTORY OF PRESENT ILLNESS: This is an 89-year-old elderly female, who has multiple medical problems, presented with marked weakness, mental status changes . She has chronic anemia from bleeding issues. The patient came to the ER. She was hypotensive, systolic 90. She is very weak. At this stage, lab shows multiple abnormalities. She was intubated. ER physician notified me, he gave her some bicarb and started on insulin drip. She is transferred to the ICU. She is just recently in the hospital about a month ago. PAST MEDICAL HISTORY: Coronary artery disease with multiple cardiac stents, history of diabetes, hypothyroidism, hyperlipidemia, high cholesterol, arthritis, and atrial fibrillation, chronic. PAST SURGICAL HISTORY: Multiple cardiac stents apparently seven, hysterectomy, previous filter placed in for bleeding. No alcohol or tobacco abuse. MEDICATIONS: Recent discharge medications reviewed from about a month ago includes; 1. Protonix 40. 2. Synthroid 125. 3. Lasix 20. 4. Aspirin 81. 5. Amiodarone 200. ALLERGIES: CODEINE, MORPHINE, PREDNISONE, AND STATINS. PHYSICAL EXAMINATION: Upon arrival to the ICU, saturations are in the 90s, pulse 80, blood pressure , and respiratory rate 18. CHEST: Decreased breath sounds. No wheezing. CARDIAC: Normal S1 and S2. No gallops. ABDOMEN: Soft. EXTREMITIES: No edema. Toes are mottled. LABORATORY DATA: White count 10,000, H and H 6 and 22, and platelet count 244, slight left shift, and 85 segs. Creatinine is 2.9 and BUN is 78, this is elevated from previous numbers. Bicarb was only 8 and anion gap of 26. Baseline BUN and creatinine apparently in the mid 30s. Chest x-ray was normal. BNP 327. IMPRESSION: 1. Hypotension, shock, and rule out sepsis. 2. Renal failure, appears to be prerenal. 3. Respiratory failure. 4. Chronic anemia. 5. Aortic stenosis. 6. Gastrointestinal bleed. I agree with present broad-spectrum antibiotics as outlined. being adjusted to increase the rate to 20. Serial exam and lab. She may require transfusion. Get input from Cardiology. At age 88, discussed with family trying to make comfort care, DNR. We will discuss with family. This is a 45-minute critical care time. Job ID: [id number]
[2019-09-01] MEDS ORDERED: Amiodarone 200 MG TAB PER TUBE SCH (09:00)
[2019-09-01] MEDS ORDERED: Aspirin 81 mg Enteric Coated Tablet PER TUBE SCH (09:00)
[2019-09-01] MEDS ORDERED: Prevnar 13-Val Conj/PF 0.5 ML SYRINGE IM ONE (09:00)
[2019-09-01 14:05] LABS: Base Excess-Venous -19.9 mmol/L (-2.0 to 3.0); Bicarbonate (HCO3v) 8.1 mmol/L (22.0-28.0); Calcium, Ionized 1.13 mmol/L (See Comments:); Chloride 102 mmol/L (98-107); Glucose 211 mg/dL (83-110); Hemoglobin - Calc 8.1 g/dL (12.0-16.0); Lactate 9.02 mmol/L (0.50-2.20); Potassium 4.7 mmol/L (3.5-5.1); Sodium 129 mmol/L (138-145); T. Carbon Dioxide 8.9 mmol/L (22.0-28.0); vO2 Saturation-calc 94.1 % (60.0-85.0)
[2019-09-01 16:51] LABS: SARS-CoV-2 MS2 Positive; SARS-CoV-2 N Gene Negative; SARS-CoV-2 S Gene Negative; SARS-CoV-2 orf1ab Negative
--- NOTE | 2019-09-02 13:40 | DIS ---
DATE OF ADMISSION: 08/31/2019 DATE OF DISCHARGE: 09/01/2019 DATED : September 01, 2019. BRIEF HOSPITAL COURSE: The patient was an 89-year-old female with coronary artery disease, chronic anemia, and critical aortic stenosis, who was admitted to the intensive care unit with a diagnosis of generalized weakness and shortness of breath. She was intubated and placed on mechanical ventilation after a brief CPR in the emergency room. She was also placed on pressors due to hypotension. She was evaluated by Pulmonary and Critical Care. Her hemoglobin on admission was 6.7 for which she received 1 unit of PRBC. Overnight, the patient continued to decline. Despite maximum titration of Levophed, her blood pressure continued to drop. The family was called in the middle of the night and the patient was made DNR. The patient at 6:32 a.m. on September 01, 2019. The family was at the bedside. FINAL DIAGNOSES: 1. Acute hypoxic respiratory failure. 2. Hypotensive shock, requiring pressors. 3. Severe metabolic acidosis/lactic acidosis with maximum lactate of 23.7. 4. Hyponatremia. 5. Acute on chronic anemia, requiring blood transfusion. 6. Acute kidney injury on chronic kidney disease, stage 3. 7. Critical aortic stenosis. 8. Coronary artery disease, status post several stents in the past. 9. History of gastrointestinal bleeding. 10. Paroxysmal atrial fibrillation, not anticoagulation candidate. 11. History of deep vein thrombosis, status post inferior vena cava filter. 12. Diabetes mellitus, type 2. 13. Hypothyroidism. Job ID: [id number]
[2019-09-02] MEDS ORDERED: Vancomycin 1 GM in Premix Bag 1 BAG IVPB SCH ×2 (18:00→20:00)
== END 2019-09-01 06:32 | disposition expired | DRG 208 ==
LOC: ERS 10:51 → CCU 15:29
PROVIDERS: ADMIT Internal Medicine; ATTEND Internal Medicine
PROC: 5A1935Z Respiratory Ventilation, Less than 24 Consecutive Hours (ICD-10-PCS; principal; 2019-08-31)
PROC: 0BH17EZ Insertion of Endotracheal Airway into Trachea, Via Natural or Artificial Opening (ICD-10-PCS; 2019-08-31)
PROC: 3E033XZ Introduction of Vasopressor into Peripheral Vein, Percutaneous Approach (ICD-10-PCS; 2019-08-31)
PROC: 30233N1 Transfusion of Nonautologous Red Blood Cells into Peripheral Vein, Percutaneous Approach (ICD-10-PCS; 2019-08-31)
DX: J96.01 Acute respiratory failure with hypoxia (principal); I13.0 Hypertensive heart and chronic kidney disease with heart failure and stage 1 through stage 4 chronic kidney disease, or unspecified chronic kidney disease; E87.2 Acidosis; E87.1 Hypo-osmolality and hyponatremia; N17.9 Acute kidney failure, unspecified; I69.351 Hemiplegia and hemiparesis following cerebral infarction affecting right dominant side; Z66 Do not resuscitate; Z20.828 Contact with and (suspected) exposure to other viral communicable diseases; I25.10 Atherosclerotic heart disease of native coronary artery without angina pectoris; D63.1 Anemia in chronic kidney disease; I35.0 Nonrheumatic aortic (valve) stenosis; R57.1 Hypovolemic shock; N18.3 Chronic kidney disease, stage 3 (moderate); I48.0 Paroxysmal atrial fibrillation; E11.22 Type 2 diabetes mellitus with diabetic chronic kidney disease; I50.9 Heart failure, unspecified; E88.89 Other specified metabolic disorders; E03.9 Hypothyroidism, unspecified; Z95.5 Presence of coronary angioplasty implant and graft; Z90.710 Acquired absence of both cervix and uterus; Z88.5 Allergy status to narcotic agent; Z88.8 Allergy status to other drugs, medicaments and biological substances; Z79.890 Hormone replacement therapy; Z79.82 Long term (current) use of aspirin; Z79.899 Other long term (current) drug therapy; Z74.01 Bed confinement status
CPT/HCPCS: 31500; 36415; 36416; 36430; 36556; 51702; 71045; 80053; 81003; 81015; 82010; 82330; 82533; 82553; 82803; 82805; 83605; 83735; 83880; 84100; 84484; 85007; 85025; 85027; 85046; 85060; 85610; 85730; 86850; 86900; 86901; 87040; 87077; 87086; 87186; 87635; 92950; 93005; 94002; 94003; 94640; 94760; 96361; 96365; 96366; 96368; 96374; 96375; C9113; J0171; J1815; J2185; J3010; J3370; J3490; J7042; J7070; J7620; P9016; P9045; U0003